=== PATIENT | male | born 1940 | race Caucasian/White ===

== ENCOUNTER 2017-09-06 11:11 | Observation (INO) | payer MEDICARE, BC ==
--- OUTSIDE RECORDS SUMMARY | 2017-09-06 11:20 | XMS REPORT ---
:1940 External Reference #:[id number] Author Organization [facility] Address [address] [place] [address] Phone [phone] Care Team Providers Name Role Phone Jennifer Hanna DR. Care Team Information Principal Java Developer Unavailable Aj Miller MD Primary Care Physician Unavailable Payers Type Date Identification Numbers Payment Provider Subscriber Medicare Primary Policy Number: [id number] Medicare-[facility] [employer] Elpidio Patel [employer] PayID: [id number] [address] [place] [address] [facility] Part [facility] PayID: [id number] [facility] Elpidio Arturo Jorge [address] [address] [place] [address] Problems Date Description Provider Status Onset: 07/24/2017 Essential hypertension Rodrigo Hernandez MD Active Family History Date Family Member(s) Problem(s) Comments General Heart Attack General Pancreatic Cancer Social History Type Date Description Comments Occupation Retired Cigarette Use Former Cigarette Smoker 1 Pack Daily Cigarette Use for 40 years, quit at age 64 Cigars Never Smoked Cigars Pipe Never Smoked A Pipe Smokeless Tobacco Never Used Smokeless Tobacco ETOH Use Currently occasionally consumes alcohol Smoking Patient is a former smoker Allergies, Adverse Reactions, Alerts Date Description Reaction Status Severity Comments 07/24/2017 NKDA active Medications Medication Date Status Form Strength Qnty SIG Indications Ordering Provider Mupirocin 07/24 Active Ointment 2% 22gm apply to efren Alcantar MD twice a day Cardizem CD 00 Active Caps ER 180mg daily Unknown /0000 24HR Xopenex Active Nebulizer 0.63mg/3M as Unknown /0000 L directed Spiriva Handihaler Active Capsules 18mcg 1 cap Unknown /0000 inhaled everyday Lipitor Active Tablets 10mg 1 by mouth Unknown /0000 every day Flecainide Acetate Active Tablets 50mg 1 by mouth Unknown /0000 twice a day Symbicort Active Aerosol 160-4.5mc 2 puffs 2x Unknown /0000 g/Act a day with spacer Lexapro Active Tablets 20mg 1 by mouth Unknown /0000 every day Omeprazole Active Capsules 20mg 1 tab by Unknown /0000 DR mouth 30 min before breakfast and dinner Finasteride Active Tablets 5mg 1 by mouth Unknown /0000 every day Pradaxa Active Capsules 150mg 1 by mouth Unknown /0000 twice a day Hydrocodone-Acetam Active Tablets 5-325mg take as Unknown inophen /0000 directed, as needed Ambien Active Tablets 5mg 1 by mouth Unknown /0000 15 min prior to sleep Triamterene/Hydroc Active Capsules 37.5-25mg Unknown hlorothiazide /0000 Sulfamethoxazole Active Powder as Unknown /0000 directed Vital Signs Date Vital Result Comment 07/24/2017 BP Systolic 190 mmHg BP Diastolic 74 mmHg Heart Rate 72 /min Respiratory Rate 20 /min Weight 221.00 lb Weight in kg's 100.246 Height 66 inches 5'6" Height in cm's 167.6 cm BMI (Body Mass Index) 35.7 kg/m2 Results Description No Information Procedures Description No Information Encounters Type Date Location Provider CPT E/M Dx Office Visit 07/24/2017 10:15a [place] 08/10/07 [place] [address] R04.0 Plan of Care Future Appointment(s):11/03/2017 10:00 am - Rodrigo Hernandez MD at [place] 08/10/800 - Rodrigo Hernandez, MDR04.0 Epistaxis
--- OUTSIDE RECORDS SUMMARY | 2017-09-06 11:21 | XMS REPORT ---
:1940 External Reference #:[id number] Author Organization [facility] Address [address] [address] Phone [phone] Care Team Providers Name Role Phone Aj Miller MD Primary Care Physician Unavailable Payers Type Date Identification Numbers Payment Provider Subscriber Medicare Primary Effective: Policy Number: Medicare Elpidio Patel 2007 [id number] PayID: [id number] [address] [place] [address] Medigap Part B Effective: 2012 Policy Number: ENZO Jocelyn Patel [id number] PayID: [id number] [address] [address] [place] [id number] Medigap Part B Effective: 2010 Policy Number: BS Mandy Patel [id number] Expires: 2012 Group Number: [id number] [address] PayID: [id number] [place] [id number] Problems Date Description Provider Status Onset: 10/21/2011 Atrial fibrillation Matty Stafford M.D. Onset: 10/21/2011 Electrocardiogram abnormal Matty Stafford M.D. Onset: 10/21/2011 Dyspnea Matty Stafford M.D. Onset: 10/21/2011 Hyperlipidemia Matty Stafford M.D. Onset: 10/21/2011 Mitral valve disorder Matty Stafford M.D. 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 Onset: 03/23/2012 Benign essential hypertension Jennifer Hanna Active Jose Alfredo Onset: 03/31/2012 Coronary arteriosclerosis Matty Stafford M.D. Onset: 03/31/2012 Atrial flutter Matty Stafford M.D. Onset: 11/06/2015 Chronic atrial fibrillation Matty Stafford M.D. 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 Family History Date Family Member(s) Problem(s) Comments General non contributory : (age 56 Father due to [place] Years) : (age 73 Mother due to Cancer, Years) Pancreatic Siblings 1 Sister, COPD Social History Type Date Description Comments Marital Status Lives With Occupation Retired Cigarette Use Quit 11 Years Ago ETOH Use consumes 2 beers per week Smoking Patient is a former smoker Recreational Drug Use Denies Drug Use Daily Caffeine Consumes on average 1 cup of regular coffee per 1/2 day Exercise Type/Frequency Exercises regularly Walking General Hx Text Allergies, Adverse Reactions, Alerts Date Description Reaction Status Severity Comments 07/27/2006 NKDA active Medications Medication Date Status Form Strength Qnty SIG Indications Ordering Provider Bevespi 07/27 Active Aerosol 9-4.8mcg/ 2unit 2 puffs Melissa Aerosphere Act s twice Marcela daily MD Osorio CD 07/02 Active Caps ER 120mg 30cap 1 by mouth 24HR s every day Aleisha Hanna M.D. Oxygen 12/11 Active Misc 1unit 2lpm as s directed Amoxicillin 07/16 Active Capsules 500mg 16cap 4 tablets s 1 hour Samir, before M.D. dental work Xopenex 07/27 Active Solution 0.63mg/3 prn Qutayb ML Aleisha Hanna M.D. Lipitor 07/23 Active Tablets 10mg 30tab 1 PO qd Qutayb s Aleisha Hanna M.D. Lexapro Active Tablets 20mg 1 PO qd Unknown Omeprazole Active Capsules DR 20mg 90cap 1 PO qd s Cpap Active qhs Finasteride Active Tablets 5mg 1 tablet Unknown po daily Pradaxa Active Capsules 150mg 60cap po bid s Hydrocodone/Aceta Active Tablets 5-325mg 20tab one or two Unknown min s po every 4 - 6 hours prn pain Xopenex HFA Active Aerosol 45mcg/Act 1unit 2 puffs s qid prn Ambien Active Tablets 5mg 20tab 1 po s tablet at bedtime prn Triamterene Active 25mg 1 tablet Unknown daily Flecainide Active Tablets 50mg 1 and 12 Qutaybeh tablets by S. mouth Jacques twice a , M.D. day Sulfamethoxazole Active once daily Advair Diskus 06/02 Hx Aerosol 500-50mcg inhale one /Dose dose by - mouth 07/13 daily Multivitamins 12/11 Hx Capsules 1 by mouth every day - 06/02 Metrocream 12/11 Hx Cream 0.75% apply to affected - area as 07/13 Valium 09/09 Hx Tablets 5mg 2tabs 1 po 2 Dir hours Samir, - prior to M.D. 05/03 mri december take one more at the time of the mri Tramadol HCL 09/07 Hx Tablets 50mg 40tab 1-2 Dir s tablets Samir, - every 6 M.D. 09/07 hours needed Percocet 06/21 Hx Tablets 5-325mg 60tab take 1-2 Dir s tabs po Samir, - q4-6 hours M.D. 05/03 prn pain /2012 Cardizem CD 05/26 Hx Caps ER 180mg 90cap 1 by mouth 24HR s every day S. [facility] 07/02 , M.D. Flecainide 09/25 Hx Tablets 75mg 180ta 1 po daily Qutaybeh bs . [facility] 09/10 , M.DWillam Celebrex 03/08 Hx Capsules 100mg 360ca 1 po bid ps . [facility] 10/20 , M.D. Finasteride 03/08 Hx Tablets 5mg 90tab qd po tayb s . [facility] 01/28 , M.D. Aspirin 03/08 Hx Tablets 81mg 1 po qd tayb . [facility] 04/18 , M.D. Fluticasone 03/08 Hx Suspension 50mcg/Act 1mon 1 spray tayb Propionate each S. - nostril in [facility] 08/14 am , M.D. Medrol Dosepak 09/21 Hx Tablets 4mg For Resp Infection S. [facility] 03/08 , M.D. Flecainide 06/22 Hx Tablets 50mg 60tab 1 po bid Qutaybeh Acetate s . [facility] 09/25 , M.D. Aspirin 02/17 Hx Tablets 325mg 1 PO qd [facility] Centrum Silver 02/17 Hx Tablets 1 PO qd [facility] , [facility]. Amiodarone HCL 07/15 Hx Tablets 200mg Take One Qutaybeh /2006 And A Half S. - bid Times [facility] 07/15 2 Weeks , M.D. Then One Tab bid For 5 Weeks Amiodarone HCL 07/15 Hx Tablets 200mg 1 po qd Qutaybeh [facility] , M.D. Amiodarone HCL 05/27 Hx Tablets 200mg take one tayb and a half S. - bid times [facility] 07/15 2 weeks , M.D. then one tab bid for 5 weeks Lexapro 05/27 Hx Tablets 90tab 1 PO qd 15 s mg S. - [facility] 05/26 , M.D. Rozerem 05/27 Hx Tablets 8mg Use prn ta Sleep S. - [facility] 02/17 , M.D. Biaxin 05/27 Hx Tablets 500mg 20tab 1 PO bid s prn S. - [facility] 05/26 , M.D. Coumadin 05/13 Hx Tablets 2.5mg 30tab Use as s Directed S. - [facility] 02/17 , M.D. Aspirin 10/29 Hx Tablets 325mg 1 PO qd S. - [facility] 05/05 , M.D. /2006 Tylenol 09/01 Hx Tablets 325mg 100ta 2 Tabs qid bs prn [facility] arnaud Rivers M.D. /2009 Cardizem 09/01 Hx Tablets 180mg 90tab 1 po qd s S. - [facility] 05/26 , M.D. /2011 Xopenex Inhaler 07/27 Hx prh tayb S. - [facility] 05/05 , M.DWillam /2006 Advair Diskus 07/27 Hx Inhaler 250mcg;50 1 puff bid mcg S. - [facility] 09/01 , MariiaDWillam /2006 Cardizem CD 07/27 Hx Capsules 120mg 30cap 1 po qd Qutayb s S. - [facility] 09/01 , M.D. /2006 Coumadin 07/27 Hx Tablets 5mg 30tab ii po 05/06 Qutayb s and 05/07 S. - then one [facility] 02/17 po qd po , M.D. /2007 qd Hydrochlorothiazi 07/23 Hx Tablets 25mg 90tab 1 po qd Qutaybeh de s Willam [facility] 07/27 , Jose Alfredo /2005 Serevent Diskus 07/23 Hx Powder 50mcg bid Qutaybeh Inhalation S. [facility] 07/27 , Jose Alfredo /2005 Spiriva 07/23 Hx Capsules 18mcg qd Qutaybeh Handihaler Willam [facility] 08/30 Jose lAfredo /2017 Albuterol 07/23 Hx Aerosol 90mcg/Dos 2 puffs Qutaybeh Inhalation e qid prn [facility] Jose Alfredo /2005 Enablex 07/23 Hx Tablets 15mg qd Qutayb Will[facility] 07/27 Jose Alfredo /2005 Ecotrin 07/23 Hx Tablets 81mg 1 po qd tayb Aleisha [facility] 09/01 Jose Alfredo /2006 Skelaxin 07/23 Hx Tablets 800mg 1/2 To 1 Tab Q 8 S. - [facility] Jose Alfredo /2011 Ibuprofen 07/23 Hx Tablets 600mg 1 po q8h tayb prn . [facility] Jose Alfredo /2006 Pulmicort Hx Inhaler 180 3Mont 2 puff bid Unknown Flexhaler / h - 06/28 Centrum Silver Hx Tablets daily Unknown Ultra Mens / - 06/02 Vesicare 00 Hx Tablets 10mg 30tab 1 po qd Unknown / s - 10/20 Celebrex Hx Capsules 200mg 1 po bid Unknown / - 03/01 Vesicare 00 Hx Tablets 5mg 1 qhs Unknown / - 03/01 Doxycycline Hx Capsules 100mg 14cap bid po Unknown Hyclate / s - 05/03 Hydrocodone Hx Tablets 5/500mg 40tab 1 tablet Unknown Bitartrate/Acetam / s by mouth inophen - every 6 09/24 hours needed Vitamin C 00 Hx 1 tablet Unknown /0000 po daily - 01/02 Advair Diskus 0000 Hx Aerosol 250-50mcg 1 puff by Unknown /0000 /Dose mouth - twice a Medications Administered in Office Medication Date Status Form Strength Qnty SIG Indications Ordering Provider Depomedrol Administered Injection Dirk Samir, 80MG 013 M.D. Vital Signs Date Vital Result Comment 08/31/2017 Height 66 inches 5'6" Weight 219.00 lb Heart Rate 72 /min BP Systolic Sitting 122 mmHg BP Diastolic Sitting 64 mmHg Respiratory Rate 14 /min O2 % BldC Oximetry 91 % BMI (Body Mass Index) 35.3 kg/m2 07/14/2017 Height 66 inches 5'6" Weight 220.00 lb with shoes Heart Rate 88 /min BP Systolic Sitting 158 mmHg LA reg cuff BP Diastolic Sitting 78 mmHg LA reg cuff BMI (Body Mass Index) 35.5 kg/m2 Ejection Fraction 55% - 60% echo 06/26/17 06/03/2017 Height 66 inches 5'6" Weight 219.12 lb with shoes BMI (Body Mass Index) 35.4 kg/m2 Ejection Fraction 55% - 60% echo 11/19/15 09/10/2016 Height 66 inches 5'6" Weight 223.00 lb w/shoes Heart Rate 74 /min BP Systolic Sitting 152 mmHg lA lg cuff BP Diastolic Sitting 70 mmHg lA lg cuff BMI (Body Mass Index) 36.0 kg/m2 Ejection Fraction 55-60% Echo 11/19/15 01/04/2016 Height 66 inches 5'6" Weight 198.75 lb with shoes Heart Rate 82 /min BP Systolic 128 mmHg LA lrg cuff BP Diastolic 66 mmHg LA lrg cuff O2 % BldC Oximetry 92 % at room air BMI (Body Mass Index) 32.1 kg/m2 Ejection Fraction 55%-60% echo 11/19/15 12/13/2015 Height 66 inches 5'6" Weight 206.12 lb Heart Rate 80 /min BP Systolic Sitting 144 mmHg BP Diastolic Sitting 74 mmHg Respiratory Rate 16 /min O2 % BldC Oximetry 93 % BMI (Body Mass Index) 33.3 kg/m2 11/06/2015 Height 66 inches 5'6" Weight 209.50 lb with shoes Heart Rate 90 /min BP Systolic Sitting 148 mmHg LA, regular cuff BP Diastolic Sitting 78 mmHg LA, regular cuff BMI (Body Mass Index) 33.8 kg/m2 Ejection Fraction 50-55% echo 02/24/14 03/09/2015 Height 66 inches 5'6" Weight 205.00 lb Heart Rate 74 /min BP Systolic Sitting 150 mmHg LA reg cuff BP Diastolic Sitting 84 mmHg LA reg cuff Respiratory Rate 12 /min BMI (Body Mass Index) 33.1 kg/m2 Ejection Fraction 50-55 echo 02/24/14 06/29/2014 Height 66 inches 5'6" Weight 212.75 lb Heart Rate 76 /min BP Systolic Sitting 148 mmHg LA, reg BP Diastolic Sitting 84 mmHg LA, reg BMI (Body Mass Index) 34.3 kg/m2 04/06/2014 Height 66 inches 5'6" Weight 222.25 lb Heart Rate 60 /min BP Systolic Sitting 138 mmHg LA reg cuff BP Diastolic Sitting 72 mmHg LA reg cuff Respiratory Rate 16 /min BMI (Body Mass Index) 35.9 kg/m2 03/16/2014 Height 66 inches 5'6" Weight 221.00 lb Heart Rate 68 /min BP Systolic Sitting 124 mmHg BP Diastolic Sitting 80 mmHg Respiratory Rate 18 /min BMI (Body Mass Index) 35.7 kg/m2 01/26/2014 Height 66 inches 5'6" Weight 222.75 lb with shoes Heart Rate 96 /min BP Systolic Sitting 148 mmHg LA Lg cuff BP Diastolic Sitting 76 mmHg LA Lg cuff Respiratory Rate 16 /min BMI (Body Mass Index) 35.9 kg/m2 05/03/2013 Height 66 inches 5'6" Weight 216.00 lb Heart Rate 80 /min BP Systolic Sitting 144 mmHg BP Diastolic Sitting 82 mmHg Respiratory Rate 24 /min BMI (Body Mass Index) 34.9 kg/m2 03/31/2012 Height 66 inches 5'6" Weight 222.00 lb Heart Rate 72 /min BP Systolic Sitting 152 mmHg BP Diastolic Sitting 70 mmHg Respiratory Rate 20 /min BMI (Body Mass Index) 35.8 kg/m2 03/23/2012 Height 66 inches 5'6" Weight 223.00 lb Heart Rate 76 /min BP Systolic 150 mmHg BP Diastolic 66 mmHg BMI (Body Mass Index) 36.0 kg/m2 03/01/2012 Height 66 inches 5'6" Weight 224.00 lb Heart Rate 80 /min BP Systolic 130 mmHg BP Diastolic 70 mmHg Respiratory Rate 18 /min O2 % BldC Oximetry 89 % BMI (Body Mass Index) 36.2 kg/m2 03/01/2012 Height 66 inches 5'6" 10/21/2011 Height 66 inches 5'6" Weight 228.00 lb Heart Rate 64 /min BP Systolic Sitting 128 mmHg L BP Diastolic Sitting 64 mmHg L BMI (Body Mass Index) 36.8 kg/m2 04/18/2011 Height 66 inches 5'6" Weight 229.00 lb Heart Rate 60 /min BP Systolic 158 mmHg BP Diastolic 82 mmHg BMI (Body Mass Index) 37.0 kg/m2 09/25/2010 Weight 224.00 lb Heart Rate 88 /min BP Systolic Sitting 138 mmHg BP Diastolic Sitting 80 mmHg 09/16/2010 Height 66 inches 5'6" Weight 223.00 lb Heart Rate 61 /min BP Systolic Sitting 160 mmHg BP Diastolic Sitting 78 mmHg BMI (Body Mass Index) 36.0 kg/m2 02/12/2010 Height 66 inches 5'6" Weight 225.00 lb Heart Rate 70 /min BP Systolic Sitting 140 mmHg BP Diastolic Sitting 86 mmHg BMI (Body Mass Index) 36.3 kg/m2 08/14/2009 Height 66 inches 5'6" Weight 231.00 lb Heart Rate 66 /min BP Systolic Sitting 140 mmHg BP Diastolic Sitting 80 mmHg BMI (Body Mass Index) 37.3 kg/m2 03/08/2009 Height 66 inches 5'6" Weight 221.00 lb Heart Rate 69 /min BP Systolic Sitting 140 mmHg L BP Diastolic Sitting 70 mmHg L BMI (Body Mass Index) 35.7 kg/m2 09/21/2008 Weight 222.00 lb Heart Rate 68 /min BP Systolic Sitting 140 mmHg BP Diastolic Sitting 70 mmHg Respiratory Rate 16 /min 06/22/2008 Height 66 inches 5'6" Heart Rate 68 /min BP Systolic Sitting 160 mmHg BP Diastolic Sitting 80 mmHg 05/26/2008 Height 66 inches 5'6" Weight 221.00 lb Heart Rate 70 /min BP Systolic Sitting 140 mmHg BP Diastolic Sitting 80 mmHg O2 % BldC Oximetry 95 % BMI (Body Mass Index) 35.7 kg/m2 02/18/2008 Height 66 inches 5'6" Weight 219.00 lb Heart Rate 65 /min BP Systolic Sitting 130 mmHg BP Diastolic Sitting 74 mmHg Respiratory Rate 16 /min BMI (Body Mass Index) 35.3 kg/m2 02/18/2008 Height 66 inches 5'6" 07/15/2007 Height 66 inches 5'6" Weight 224.00 lb Heart Rate 64 /min BP Systolic Sitting 144 mmHg L BP Diastolic Sitting 70 mmHg L BMI (Body Mass Index) 36.2 kg/m2 05/24/2007 Height 66 inches 5'6" Weight 223.50 lb Heart Rate 77 /min BP Systolic Sitting 120 mmHg BP Diastolic Sitting 80 mmHg BMI (Body Mass Index) 36.1 kg/m2 05/05/2007 Height 66 inches 5'6" Weight 220.00 lb Heart Rate 87 /min BP Systolic Sitting 130 mmHg BP Diastolic Sitting 80 mmHg BMI (Body Mass Index) 35.5 kg/m2 10/28/2006 Height 66 inches 5'6" Weight 214.00 lb Heart Rate 64 /min BP Systolic Sitting 164 mmHg L BP Diastolic Sitting 70 mmHg L BMI (Body Mass Index) 34.5 kg/m2 10/05/2006 Height 66 inches 5'6" Weight 216.00 lb Heart Rate 68 /min Respiratory Rate 18 /min BMI (Body Mass Index) 34.9 kg/m2 09/01/2006 Height 66 inches 5'6" Weight 222.00 lb Heart Rate 69 /min BP Systolic Sitting 140 mmHg BP Diastolic Sitting 80 mmHg Respiratory Rate 18 /min BMI (Body Mass Index) 35.8 kg/m2 07/27/2006 Height 66 inches 5'6" Weight 224.00 lb Heart Rate 79 /min BP Systolic Sitting 150 mmHg L BP Diastolic Sitting 80 mmHg L O2 % BldC Oximetry 96 % BMI (Body Mass Index) 36.2 kg/m2 Results Test Date Test Result H/L Range Note Arterial Blood Gas 01/03/2015 PH Arterial 7.39 7.35-7.45 Pco2 Arterial 38 mmHg 35-45 Po2 Arterial 78 mmHg Low 80-100 O2 Saturation Arterial 97.1 % 95-98 Base Excess Arterial -1.7 -2.0-2.0 1 Hco3 Arterial 23.5 mmol/L 19-31 Basic Metabolic Panel 06/02/2012 Sodium 140 mmol/L 133-145 Potassium 4.5 mmol/L 3.5-5.0 Chloride 106 mmol/L 101-111 Co2 Carbon Dioxide 28.0 mmol/L 22-32 Anion Gap 6.0 mmol/L 2-11 Glucose 96 mg/dL 70-100 Blood Urea Nitrogen 14 mg/dL 6-24 Creatinine 0.80 mg/dL 0.50-1.40 BUN/Creatinine Ratio 17.5 8-20 Calcium 8.6 mg/dL 8.1-9.9 Egfr Non- 95.6 >60 Egfr 122.9 >60 2 CBC Auto Diff 06/02/2012 White Blood Count 7.6 10^3/uL 4.8-10.8 Red Blood Count 3.89 10^6/uL Low 4.0-5.4 Hemoglobin 11.9 g/dL Low 14.0-18.0 Hematocrit 35 % Low 42-52 Mean Corpuscular Volume 90 fL 80-94 Mean Corpuscular Hemoglobin 31 pg 27-31 Mean Corpuscular HGB Conc 34 g/dL 31-36 Red Cell Distribution Width 15 % 10.5-15 Platelet Count 266 10^3/uL 150-450 Mean Platelet Volume 7 um3 Low 7.4-10.4 Abs Neutrophils 4.8 10^3/uL 1.5-7.7 Abs Lymphocytes 1.9 10^3/uL 1.0-4.8 Abs Monocytes 0.6 10^3/uL 0-0.8 Abs Eosinophils 0.2 10^3/uL 0-0.6 Abs Basophils 0 10^3/uL 0-0.2 Abs Nucleated RBC 0.01 10^3/uL Granulocyte % 63.2 % 38-83 Lymphocyte % 25.5 % 25-47 Monocyte % 8.6 % 1-9 Eosinophil % 2.2 % 0-6 Basophil % 0.5 % 0-2 Nucleated Red Blood Cells % 0.1 Laboratory test finding 06/02/2012 Inr 1.01 0.82-1.17 3 Activated Partial Thrombo Time 35.4 SEC 25.15-38.53 4 Type & Screen 06/02/2012 Patient Blood Type B Positive Antibody Screen NEGATIVE Urinalysis 06/02/2012 Urine Color Yellow Urine Appearance Clear Urine Specific Sinclair 1.022 1.010-1.030 Urine Esterase Negative Negative Urine Nitrate Negative Negative Urine Urobilinogen Negative Negative Urine Protein Negative Negative Urine pH 7.0 5-9 Urine Blood Negative Negative Urine Ketones Negative Negative Urine Bilirubin Negative Negative Urine Glucose Negative Negative Cath Panel 03/24/2012 PTT (Aptt) 27.9 SEC 25.1-38.5 CBC With Manual Diff 03/24/2012 White Blood Count 7.6 CUMM 4.8-10.8 Red Cell Count 4.06 CUMM Low 4.6-6.2 Hemoglobin 12.4 g/dL Low 14.0-18.0 Hematocrit 36 % Low 42-52 Mean Corpuscular Volume 90 um3 80-94 Mean Corpuscular Hemoglob 31 pg 27-31 Mean Corpuscular HGB Cone 34 g/dL 32-36 Redcell Distribution WDTH 15 % 10.5-15 Platelet Count 247 CUMM 150-450 Mean Platelet Volume 6.8 um3 Low 7.4-10.4 Absolute Neutrophil Count 4.5 1.5-7.7 Polysegmented Neutrophil 54 % 38-83 Band Neutrophil 1 % 0-8 Lymphocyte 35 % 25-47 Monocyte 7 % 0-13 Eosinophil 2 % 0-6 Basophil 1 % 0-2 RBC Morphology NORMAL Basic Metabolic Panel 03/24/2012 Sodium 138 mmol/L 135-145 Potassium 4.2 mmol/L 3.5-5.0 Chloride 106 mmol/L 101-111 Co2 (Carbon Dioxide) 27.0 mmol/L 22-32 Anion Gap 5.0 mmol/L 2-11 5 Glucose 106 mg/dL High 70-100 BUN 15 mg/dL 6-24 Creatinine 0.8 mg/dL 0.50-1.40 One Over Creatinine 1.25 BUN/Creatinine Ratio 18.8 8-20 Calcium 8.8 mg/dL 8.1-9.9 eGFR Non- 95.6 > 60 eGFR 122.9 > 60 6 Protime 03/24/2012 Inr 0.90 0.88-1.13 7 Protime 10.7 SEC 10.3-13.5 8 Laboratory test finding 08/14/2008 TSH 4.05 MIU/ML 0.34-5.60 T3 Total 0.85 NG/ML 0.5-1.7 Thyroxine Free 0.87 NG/ML 0.61-1.24 9 Liver Function Panel 08/14/2008 Total Protein 6.3 GM/DL 6.2-8.1 Albumin 3.9 GM/DL 3.2-5.2 Globulin 2.4 GM/DL 2-4 Albumin/Globulin Ratio 1.6 1-3 Bilirubin Total 0.7 mg/dL 0.4-1.5 Bilirubin Direct 0.1 mg/dL 0.1-0.5 Indirect Bilirubin 0.6 mg/dL 0.1-0.75 Alkaline Phosphatase 94 U/L 39-117 Alt (SGPT) 17 U/L 17-63 Ast (Sgot) 17 U/L 12-42 Laboratory test finding 10/20/2007 TSH 3.34 MIU/ML 0.34-5.60 T3 Total 0.85 NG/ML 0.5-1.7 Troponin-I (TnI) 0.02 NG/ML 0-0.06 10 Liver Function Panel 10/20/2007 Albumin/Globulin Ratio 1.5 1-3 Albumin 4.0 GM/DL 3.2-5.2 Alkaline Phosphatase 79 U/L 39-117 Alt (SGPT) 18 U/L 17-63 Ast (Sgot) 16 U/L 12-42 Bilirubin Direct < 0.1 mg/dL Low 0.1-0.5 Globulin 2.7 GM/DL 2-4 Bilirubin Total 0.8 mg/dL 0.4-1.5 Total Protein 6.7 GM/DL 6.2-8.1 Laboratory test finding 05/25/2007 T3 Total 1.10 NG/ML 0.5-1.7 Thyroxine 8.2 g/dL 5-12 TSH 3.27 MIU/ML 0.34-5.60 Liver Function Panel 05/25/2007 Albumin/Globulin Ratio 1.5 1-3 Albumin 4.1 GM/DL 3.2-5.2 Alkaline Phosphatase 87 U/L 39-117 Alt (SGPT) 18 U/L 17-63 Ast (Sgot) 17 U/L 12-42 Bilirubin Direct 0.1 mg/dL 0.1-0.5 Globulin 2.7 GM/DL 2-4 Indirect Bilirubin 0.6 mg/dL 0.1-0.75 Bilirubin Total 0.7 mg/dL 0.4-1.5 Total Protein 6.8 GM/DL 6.2-8.1 Protime 05/25/2007 Inr 2.38 11 Protime 18.5 High 10.9-13.1 Protime 07/31/2006 Inr 1.00 12, 13 Protime 12.0 10.9-13.1 12 1 Reference ranges based on room air. 2 Because ethnic data is not always readily available, this report includes an eGFR for both -Americans and non- Americans. The National Kidney Disease Education Program (NKDEP) does not endorse the use of the MDRD equation for patients that are not between the ages of 18 and 70, are , have extremes of body size, muscle mass, or nutritional status, or are non- or non-. According to the National Kidney Foundation, irrespective of diagnosis, the stage of the disease is based on the level of kidney function: Stage Description GFR(mL/min/1.73 m(2)) 1 Kidney damage with normal or decreased GFR 90 2 Kidney damage with mild decrease in GFR 60-89 3 Moderate decrease in GFR 30-59 4 Severe decrease in GFR 15-29 5 Kidney failure <15 (or dialysis) 3 Effective May 10, 2012, in conjunction with the upgrade of the hospital information system, [facility] will release the International Normalized Ratio (INR) only. Patient reports will no longer contain prothrombin time (PT) results in seconds. This allows for consistency in patient evaluation and treatment. The INR was adopted by the World Health Organization (WHO) in 1983 as a standardized system of reporting PT. The Centers for Disease Control (CDC) states that reporting of PT results in INR only is the preferred method. Recommended INR for Patients on Oral Anticoagulants Prophylaxis 2.0 - 3.0 Treatment of thrombosis 2.0 - 3.0 Prevention of embolism 2.0 - 3.0 Prevention of embolism from prosthetic heart valves 2.5 - 3.5 4 AA 06/08 5 Anion gap measurement may be of limited value in the presence of any alkalosis, especially in a combined acid base disorder. . 6 Because ethnic data is not always readily available, this report includes an eGFR for both -Americans and non- Americans. The National Kidney Disease Education Program (NKDEP) does not endorse the use of the MDRD equation for patients that are not between the ages of 18 and 70, are , have extremes of body size, muscle mass, or nutritional status, or are non- or non-. According to the National Kidney Foundation, irrespective of diagnosis, the stage of the disease is based on the level of kidney function: Stage Description GFR(mL/min/1.73 m(2)) 1 Kidney damage with normal or decreased GFR 90 2 Kidney damage with mild decrease in GFR 60-89 3 Moderate decrease in GFR 30-59 4 Severe decrease in GFR 15-29 5 Kidney failure <15 (or dialysis) 7 Recommended INR for Patients on Oral Anticoagulants Prophylaxis 2.0 - 3.0 Treatment of thrombosis 2.0 - 3.0 Prevention of embolism 2.0 - 3.0 Prevention of embolism from prosthetic heart valves 2.5 - 3.5 8 DIAGNOSIS,TREATMENT,AND THERAPY MUST BE BASED ON THE INR VALUE ALONE. 9 PLEASE NOTE NEW REFERENCE RANGES. 10 New Reference Range and Interpretation effective 05/13/02 TnI (ng/ml) INTERPRETATION <0.06 ng/ml NOT SUPPORTIVE OF DIAGNOSIS OF CA 0.06 - 0.50 ng/ml INDETERMINATE: SUGGEST SERIAL STUDIES IF CLINICALLY INDICATED. > 0.5 ng/ml CONSISTENT WITH DIAGNOSIS OF CA . 11 JOON VALUE=2.00 ( OF 05/26/06) Recommended INR for Patients on Oral Anticoagulants Prophylaxis 2.0 - 3.0 Treatment of thrombosis 2.0 - 3.0 Prevention of embolism 2.0 - 3.0 Prevention of embolism from prosthetic heart valves 2.5 - 3.[address] HATCH AT [phone] 13 JOON VALUE=2.00 ( OF 05/26/06) Recommended INR for Patients on Oral Anticoagulants Prophylaxis 2.0 - 3.0 Treatment of thrombosis 2.0 - 3.0 Prevention of embolism 2.0 - 3.0 Prevention of embolism from prosthetic heart valves 2.5 - 3.5 Procedures Date CPT Code Description Status 08/05/2017 84954 Diffusing Capacity Completed 08/05/2017 39159 Plethysmography Determination Lung Volumes & Per Completed Airway Resist 08/05/2017 76381 Pulmonary Stress Test Simple Completed 08/05/2017 42116 Pulmonary Function><Bronchodil Completed 07/02/2017 16941 Holter Monitor Review (24 hr)dr courtney & mago Completed only 06/30/2017 69119 ECG Monitor/Recording W/Visual Superimposition Scanning Completed 06/30/2017 42596 EKG Tracing & Interpretation Completed 06/24/2017 55392 ECHO Transthoracic, Real-Time 2D With Doppler And Color Completed Flow 06/24/2017 28099 ECHO Transthoracic, Real-Time 2D With Doppler And Color Completed Flow 06/03/2017 67740 EKG Tracing & Interpretation Completed 09/10/2016 59004 EKG Tracing & Interpretation Completed 11/19/2015 [id number] ECHO Transthoracic, Real-Time 2D With Doppler And Color Completed Flow 11/11/2015 32269 Holter Monitor Review (24 hr)dr courtney & interp Completed only 11/06/2015 15884 EKG Tracing & Interpretation Completed 03/09/2015 06761 EKG Tracing & Interpretation Completed 01/08/2015 51656 Laparoscopy Cholecystectomy With Cholangiography Completed 01/04/2015 29954 EKG, Interpretation Only Completed 04/06/2014 92619 EKG Tracing & Interpretation Completed 03/22/2014 88869 Holter Monitoring 24 HR New Completed 03/21/2014 01508 Holter Monitoring 24 HR New Completed 02/24/2014 26313 ECHO Transthoracic, Real-Time 2D With Doppler And Color Completed Flow 01/26/2014 12982 EKG Tracing & Interpretation Completed 05/03/2013 51748 EKG Tracing & Interpretation Completed 11/18/2012 78135 Inject/Drain Joint/Bursa Major Completed 11/18/2012 79969 Rad Shoulder Comp, Min. 2 Views Completed 09/07/2012 56078 Rad Exam; Hip Unilat Completed 09/07/2012 86133 Rad Exam; Pelvis Completed 07/19/2012 70637 Rad Exam; Hip Unilat Completed 07/19/2012 96299 Rad Exam; Pelvis Completed 06/08/2012 35727 THR Total Hip Replacement Completed 06/08/2012 93682 THR Total Hip Replacement Completed 05/03/2012 64372 Rad Exam; Hip Unilat Completed 05/03/2012 86165 Rad Exam; Pelvis Completed 04/20/2012 12149 ECHO Transthoracic, Real-Time 2D With Doppler And Color Completed Flow 03/26/2012 13239 Left Health Catheterization W/Inj For Left Completed Ventriculography,S&I 03/26/2012 70316 Cath PLMT&NJX L Ventriculog Img S&I Completed 03/26/2012 60935 Left Heart Cath. Incl S/I Coronaries, Angio S/I V Gram Completed If Done 03/23/2012 07230 EKG Tracing & Interpretation Completed 03/16/2012 31555 Treadmill Interp/Report Only Completed 03/16/2012 46170 Stress Test Supervsn W/Out I/R Completed 03/01/2012 12667 EKG Tracing & Interpretation Completed 10/21/2011 52835 EKG Tracing & Interpretation Completed 04/18/2011 63162 EKG Tracing & Interpretation Completed 10/10/2010 48886 Holter Monitor Completed 10/10/2010 84817 Holter Monitoring 24 HR New Completed 09/25/2010 64637 EKG Tracing & Interpretation Completed 09/16/2010 39927 EKG Tracing & Interpretation Completed 08/23/2010 94914 ECHO Transthoracic, Real-Time 2D With Doppler And Color Completed Flow 02/12/2010 13362 EKG Tracing & Interpretation Completed 08/14/2009 96461 ECHO Transthoracic, Real-Time 2D With Doppler And Color Completed Flow 08/14/2009 98648 EKG Tracing & Interpretation Completed 03/08/2009 52300 EKG Tracing & Interpretation Completed 09/21/2008 66657 EKG Tracing & Interpretation Completed 08/29/2008 71807 Holter Monitor Interpretation Completed 06/22/2008 38775 EKG Tracing & Interpretation Completed 06/16/2008 66339 Treadmill Interp/Report Only Completed 06/16/2008 85129 Treadmill Interp/Report Only Completed 06/16/2008 41894 Stress Test Supervsn W/Out I/R Completed 06/01/2008 66932 Echocardiogram Completed 06/01/2008 14795 Echocardiogram Completed 06/01/2008 73313 Pulse Doppler & Continuous Wave Completed 06/01/2008 17576 Pulse Doppler & Continuous Wave Completed 06/01/2008 76632 Pulse Doppler & Continuous Wave Completed 06/01/2008 14356 Color Doppler Completed 06/01/2008 38638 Color Doppler Completed 05/26/2008 12184 EKG Tracing & Interpretation Completed 05/26/2008 02737 EKG Tracing & Interpretation Completed 02/18/2008 04118 EKG Tracing & Interpretation Completed 08/27/2007 38995 Holter Monitor Completed 08/27/2007 75911 Holter Monitor Completed 08/27/2007 96625 Holter Monitor Completed 07/15/2007 32087 EKG Tracing & Interpretation Completed 05/24/2007 01217 EKG Tracing & Interpretation Completed 05/24/2007 08193 EKG Tracing & Interpretation Completed 05/18/2007 34880 Color Flow Doppler/Interp & Reprt Completed 05/18/2007 94456 Pulse Wave/Continuous-Interp.RPT Completed 05/18/2007 64330 Pulse Wave/Continuous-Interp.RPT Completed 05/18/2007 61011 Echocardiography, Transesophageal, Real Time W/Image 2D Completed W/W/O M-M 05/18/2007 95026 EKG, Interpretation Only Completed 05/18/2007 24436 EKG, Interpretation Only Completed 05/18/2007 98454 Cardioversion Completed 05/18/2007 32941 Cardioversion Completed 05/13/2007 92450 Holter Monitor Interpretation Completed 05/05/2007 47990 EKG Tracing & Interpretation Completed 05/05/2007 95004 EKG Tracing & Interpretation Completed 10/28/2006 83805 EKG Tracing & Interpretation Completed 09/01/2006 20317 EKG Tracing & Interpretation Completed 09/01/2006 71196 EKG Tracing & Interpretation Completed 08/07/2006 26497 Treadmill Interp/Report Only Completed 08/07/2006 82356 Treadmill Interp/Report Only Completed 08/07/2006 38314 Stress Test Supervsn W/Out I/R Completed 07/29/2006 33718 Color Doppler Completed 07/29/2006 88365 Pulse Doppler & Continuous Wave Completed 07/29/2006 68335 Pulse Doppler & Continuous Wave Completed 07/29/2006 33946 Echocardiogram Completed 07/27/2006 64896 EKG Tracing & Interpretation Completed Encounters Type Date Location Provider CPT E/M Dx Office Visit 07/20/2017 [facility] [place] [address] J44.9 1:30p [facility] G47.33 E66.09 R09.02 Office Visit 07/14/2017 4:00p [facility] Jennifer Hanna 02293 I48.3 M.DWillam J44.9 I10 E78.4 Office Visit 06/03/2017 1:40p [facility] Jennifer Hanna 23878 J44.9 M.DWillam I48.91 I10 E78.4 R94.31 R06.02 Office Visit 09/10/2016 4:20p [facility] Jennifer Pena, 42678 J44.9 M.D. I48.91 I10 E78.4 R94.31 Office Visit 01/04/2016 8:20a [facility] Becky, 36377 J44.9 M.D. I48.91 I48.2 I10 E78.4 Office Visit 12/13/2015 10:15a [facility] [place] [address] J44.9 [facility] G47.33 E66.09 Z12.2 Office Visit 11/06/2015 10:00a [facility] S. Becky, 98304 I48.2 M.D. I10 E78.4 R94.31 R06.02 Office Visit 03/09/2015 8:20a [facility] S. Jacques, 95805 427.31 M.D. 401.9 272.4 397.0 Office Visit 01/12/2015 12:22p [facility], Pato Bauman, 01392 427.31 Hospitalists M.DWillam 575.10 401.9 Office Visit 01/11/2015 12:21p [facility], Pato Bauman, 47702 427.31 Hospitalists M.D. 575.10 574.20 401.9 Office Visit 01/10/2015 12:20p [facility], Pato Bauman, 67326 427.31 Hospitalists M.D. 401.9 Office Visit 01/09/2015 12:20p [facility], Yolette Adame, 82672 575.10 Hospitalists M.D. 574.20 427.31 401.9 Office Visit 01/08/2015 12:19p [facility], Yolette Adame, 27010 577.0 Hospitalists M.D. 574.20 427.31 401.9 Office Visit 01/07/2015 12:19p [facility], Yolette Adame, 62088 577.0 Hospitalists M.D. 574.20 427.31 401.9 Office Visit 01/06/2015 12:19p [facility], Yolette Adame, 99609 577.0 Hospitalists M.D. 574.20 427.31 401.9 Office Visit 01/05/2015 12:18p [facility], Yolette Adame, 19843 577.0 Hospitalists M.D. 574.20 427.31 401.9 Office Visit 01/04/2015 12:18p [facility], Yolette Adame, 92610 577.0 Hospitalists M.D. 574.20 272.4 401.9 Office Visit 01/03/2015 12:14[place] [facility] [place], [address] 577.0 Assoc, Hospitalists M.D. 574.20 272.4 401.9 Office Visit 06/29/2014 10:00a [facility] Jennifer Hanna, 15579 427.31 M.D. 401.9 397.0 414.01 272.4 Office Visit 04/06/2014 9:00a [facility] BRIJESH Carrasco 45625POE 427.31 786.05 401.9 397.0 493.20 Office Visit 03/16/2014 11:30a [facility] BRIJESH Carrasco 11671 786.05 427.31 401.9 397.0 Office Visit 01/26/2014 11:00a [facility] Jennifer Hanna, 41991 414.01 M.D. 401.1 786.05 272.4 794.31 427.31 Office Visit 05/03/2013 10:00a [facility] Jennifer SWillam Hanna, 52506 414.01 M.D. 401.1 786.05 272.4 794.31 Office Visit 11/18/2012 2:00p [facility] Dawson M.D. 53631 716.91 C.M.A. 726.19 Office Visit 11/01/2012 3:15p [facility] Dawson M.D. 89546 722.93 C.M.A. Office Visit 09/07/2012 2:30p [facility] QUIN Espinoza 05692 719.45 C.M.A. Office Visit 05/03/2012 2:45p [facility] Dawson M.D. 74261 716.95 C.M.A. Office Visit 03/31/2012 2:40p [facility] Qutaybeh S. 49742 414.01 Jose Alfredo Hanna 401.1 427.32 786.05 272.4 Office Visit 03/26/2012 7:51a [facility] Qutaybeh S. Maghaydah, 05015 794.31 M.D. 414.01 401.1 427.31 427.32 786.05 Office Visit 03/23/2012 4:00p [facility] Qutaybeh S. Maghaydah, 22192 786.05 M.D. 401.1 424.0 492.8 Office Visit 03/16/2012 9:30a [facility] Qutaybeh S. Maghaydah, 03057 794.31 M.D. 786.05 401.1 v72.81 Office Visit 03/01/2012 3:30p [facility] Qutaybeh S. Maghaydah, 27446 427.31 M.D. 794.31 786.05 272.4 424.0 Office Visit 10/21/2011 3:30p [facility] Qutaybeh S. Maghaydah, 57115 427.31 M.D. 794.31 786.05 272.4 424.0 397.0 492.8 Office Visit 04/18/2011 2:20p [facility] Qutaybeh S. Maghaydah, 06962 401.9 M.D. 427.31 794.31 786.05 272.4 424.0 397.0 Office Visit 09/25/2010 10:00a [facility] Qutaybeh S. Maghaydah, 03811 424.0 M.D. 401.1 427.31 272.4 Office Visit 09/16/2010 3:00p [facility] Qutaybeh S. Maghaydah, 36031 424.0 M.D. 401.1 272.4 Office Visit 02/12/2010 3:00p [facility] Qutaybeh S. Maghaydah, 02971 424.0 M.D. 401.1 427.31 272.4 786.05 424.2 Office Visit 08/14/2009 3:20p [facility] Qutaybeh S. Maghaydah, 96095 424.0 M.D. 401.1 427.31 272.4 Office Visit 03/08/2009 3:40p [facility] Qutaybeh S. Maghaydah, 98720 424.0 M.D. 401.1 427.31 272.4 Office Visit 09/21/2008 3:40p [facility] Qutaybeh S. Maghaydah, 86303 427.31 M.D. 786.05 424.0 401.1 272.4 424.2 Office Visit 06/22/2008 8:20a [facility] Qutaybeh S. Maghaydah, 26196 786.05 M.D. 427.31 424.0 401.1 272.4 794.31 424.2 Office Visit 05/26/2008 11:10a [facility] Qutaybeh S. Maghaydah, 95332 427.31 M.D. 272.4 427.69 401.1 Office Visit 02/18/2008 2:20p [facility] Qutaybeh S. Maghaydah, 42959 427.31 M.D. 272.4 424.0 401.1 Office Visit 11/02/2007 3:00p [facility] Sotero Moses, 17681 846.0 Of [facility] Education Professional M.D. Office Visit 07/15/2007 3:20p [facility] Qutaybeh S. 47455 427.31 Jose Alfredo Hanna 272.4 424.0 401.0 Office Visit 05/24/2007 2:10p [facility] Qutaybeh S. Maghaydah, 88276 427.31 M.D. 401.1 794.31 272.4 424.0 424.2 491.0 Office Visit 05/18/2007 9:00a [facility] Qutaybeh S. Maghaydah, 99442 427.31 M.D. 401.1 794.31 272.4 Office Visit 05/05/2007 3:20p [facility] Qutaybeh S. Maghaydah, 62035 427.31 M.D. 424.0 272.4 401.1 Office Visit 10/28/2006 4:00p [facility] Andrzejtayb S. Becky, 13199 401.0 M.D. 427.31 424.0 424.2 Office Visit 10/05/2006 3:00p [facility] Qutayb S. Jacques, 47008 401.1 M.D. 427.31 491.0 Office Visit 09/01/2006 3:00p [facility] Qutayb S. Becky, 82016 401.0 M.D. 427.31 424.2 416.8 Office Visit 07/27/2006 2:20p [facility] Andrzejtayb S. Jacques, 09046 427.32 M.D. 401.0 272.4 491.0 Plan of Care Future Appointment(s):03/01/2018 10:30 am - Melissa Medrano MD at [facility]08/31/2017 - Melissa Medrano MDJ44.9 Chronic obstructive pulmonary disease, unspecifiedFollow up:6 ersvjvK47.33 Obstructive sleep apnea (adult) (pediatric)E66.09 Other obesity due to excess omfpzsedS66.02 Hypoxemia
[2017-09-06] MEDS ORDERED: methylPREDNISolone 125 MG* 2 ML VIAL IV ONE (11:28)
[2017-09-06] MEDS ORDERED: Albuterol/Ipratropium NEB.SOL* Albuterol 2.5 MG/Ipratropium 0.5 MG 3 ML ONE (11:32)
[2017-09-06] MEDS: Albuterol/Ipratropium NEB.SOL* Albuterol 2.5 MG/Ipratropium 0.5 MG 3 ML INH SCH ×3 (11:35→12:56)
[2017-09-06 11:43] LABS: ABS Basophils 0.1 10^3/ul (0-0.2); ABS Eosinophils 0.5 10^3/ul (0-0.6); ABS Lymphocytes 1.7 10^3/ul (1.0-4.8); ABS Monocytes 0.6 10^3/ul (0-0.8); ABS Neutrophils 5.4 10^3/ul (1.5-7.7); ABS Nucleated RBC 0 10^3/ul; Eosinophil % 5.5 % (0-6); Hematocrit 38 % (42-52); Hemoglobin 12.7 g/dl (14.0-18.0); Mean Corpuscular HGB Conc 34 g/dl (31-36); Mean Corpuscular Hemoglobin 30 pg (27-31); Mean Corpuscular Volume 89 fL (80-94); Mean Platelet Volume 6 um3 (7.4-10.4); Nucleated Red Blood Cells % 0; Platelet Count 238 10^3/ul (150-450); Red Blood Count 4.28 10^6/ul (4.0-5.4); Red Cell Distribution Width 14 % (10.5-15); White Blood Count 8.3 10^3/ul (3.5-10.8)
[2017-09-06 11:54] LABS: Urine Appearance Cloudy; Urine Blood Negative (Negative); Urine Color Yellow; Urine Ketones Negative (Negative); Urine Protein 1+(30 mg/dL) (Negative); Urine Specific Gravity 1.027 (1.010-1.030); Urine Urobilinogen Negative (Negative)
[2017-09-06 12:02] LABS: INR 0.94 (0.77-1.02)
[2017-09-06 12:15] LABS: EGFR Non-African American 75.5 (>60)
--- NOTE | 2017-09-06 12:46 | RAD ---
INDICATION: Short of breath COMPARISON: July 20, 2007 TECHNIQUE: An AP portable view obtained at 11.7 hours is submitted. FINDINGS: Bones/Soft Tissues: There are no acute bony findings. Cardiomediastinal: The cardiac silhouette is mildly enlarged. The interstitium is prominent. There is likely mild interstitial congestion. Lungs: There is no focal consolidation. Pleura: There are no pleural effusions. Other: None IMPRESSION: SUSPECT MILD INTERSTITIAL CONGESTION
[2017-09-06] MEDS ORDERED: Iohexol 350* (CONTRAST) 500 ML MDV IV ONE (13:09)
--- NOTE | 2017-09-06 13:51 | RAD ---
INDICATION: Chest pain. Short of breath. Evaluate for pulmonary embolus. COMPARISON: Chest x-ray same date TECHNIQUE: Axial source images were obtained from the thoracic inlet to the hemidiaphragms following administration of [address] angiographic technique was utilized. Coronal and sagittal reconstructed images were acquired. CHEST FINDINGS: Neck/thyroid: The visualized neck to include the thyroid appear normal. Chest wall: There are no acute abnormalities of the bony thorax or chest wall. There is no supraclavicular, infraclavicular, or axillary lymphadenopathy. Lungs : There are 2 right upper lobe nodules each measuring up to roughly 1 cm identified on axial reference images 29/08 and 27/12/1964. There is a 5 mm nodule in the right lower lobe adjacent to the fissure there are no other definitive pulmonary parenchymal masses. There is linear change right upper lobe most consistent with atelectasis. There are underlying emphysematous changes. There are no endobronchial lesions. Cardiomediastinal structures: There is no CT evidence of acute pulmonary embolic disease. The heart is normal in size. There is no pericardial effusion. There is no evidence of aortic aneurysm or dissection. There there is a right hilar, paratracheal, and subcarinal lymphadenopathy with individual necrotic appearing lymph nodes measuring up to 2 cm the esophagus appears normal. Pleura : There are no pleural-based masses or effusions. Other: There is a moderate-sized hiatal hernia. IMPRESSION: 1. Multiple centimeter and smaller right upper lobe nodules. These are worrisome for a primary are metastatic malignancy. 2. Right hilar, paratracheal, and subcarinal lymphadenopathy. This is concerning for metastatic lymphadenopathy. 3. Hiatal hernia
[2017-09-06] MEDS ORDERED: HYDROcodone/ACETAMIN 5-325 MG* 1 TAB PO PRN (14:22)
[2017-09-06] MEDS ORDERED: Albuterol/Ipratropium NEB.SOL* Albuterol 2.5 MG/Ipratropium 0.5 MG 3 ML INH PRN (14:26)
--- NOTE | 2017-09-06 20:35 | HP ---
ADDENDUM NOW INCLUDED ON THIS REPORT CC: Dr. Miller; Dr. Medrano * HOSPITAL MEDICINE HISTORY AND PHYSICAL: DATE OF ADMISSION: 09/06/17 PRIMARY CARE PHYSICIAN: Dr. Miller. ATTENDING PHYSICIAN: Ashvin Colon MD * (dictation provided by Lora Valera NP). CHIEF COMPLAINT: Shortness of breath. HISTORY OF PRESENT ILLNESS: Mr. Patel is a 77-year-old male with a past medical history of COPD on 2 L nasal cannula as needed at home as well as atrial fibrillation and hypertension, who presents to the hospital today with concern for shortness of breath. Mr. Patel states that he was in his normal state of health yesterday. He has a chronic nonproductive cough which was unchanged. This morning at 5 a.m., he was getting up to go to the bathroom when he became suddenly extremely short of breath. He states that he could hardly move because he could not catch his breath. He states this lasted about 30 minutes. He was doing well again until about 10 a.m. when again while walking, he had a sudden onset of severe shortness of breath. He ultimately called EMS, was brought to the emergency room by which time he had improved somewhat. The patient was given treatment in the emergency room with DuoNebs and methylprednisolone. With this, he was doing better but when he again attempted to ambulate, he became very dyspneic. He is currently on 3 L nasal cannula satting greater than 90%. He denies any fevers or chills. He has had no chest pain. He has had no nausea, vomiting, diarrhea or abdominal pain. In the emergency room, Mr. Patel had a chest x-ray which showed concern for possible mild vascular congestion. He had a chest, thorax CTA to rule out pulmonary embolism, which showed no embolism, but did show concern for the following: "Multiple centimeter and smaller right upper lobe nodules. These are worrisome for primary metastatic malignancy; right hilar, paratracheal and subcarinal lymphadenopathy. This is concerning for metastatic lymphadenopathy. " His labs were unremarkable. His vital signs were stable again on 3 L nasal cannula. PAST MEDICAL HISTORY: 1. AFib. 2. Hypertension. 3. Hyperlipidemia. 4. COPD, on 2 L nasal cannula p.r.n. 5. GERD. 6. BPH. MEDICATIONS: 1. Diltiazem CD 120 mg p.o. q.a.m. 2. Bactrim 1 tab p.o. daily for UTI prophylaxis. 3. Atorvastatin 10 mg p.o. q.a.m. 4. Escitalopram 20 mg p.o. q.a.m. 5. Dabigatran 150 mg p.o. b.i.d. 6. Hydrocodone with acetaminophen 5/500 two tabs p.o. q.6 hours p.r.n. 7. Metronidazole 0.75% topically at bedtime p.r.n. 8. Xopenex 2 puffs inhaled q.4 hours p.r.n. 9. Atorvastatin 10 mg p.o. daily. 10. Dabigatran 150 mg p.o. b.i.d. 11. Zolpidem 10 mg p.o. at bedtime. 12. Omeprazole 20 mg p.o. at bedtime. 13. Flecainide 75 mg p.o. b.i.d. 14. Finasteride 5 mg p.o. q.a.m. 15. Bevespi 9/4.8 mcg 2 puffs inhaled b.i.d. ALLERGIES: No known drug allergies. FAMILY HISTORY: The patient reports his mother in her 70s related to pancreatic cancer. Father in his 50s related to coronary artery disease. SOCIAL HISTORY: The patient is a former smoker, quit about 15 years ago, but has over 40 pack a year history of smoking. No report of significant alcohol or any drug use. The patient lives with his , who is his healthcare proxy. REVIEW OF SYSTEMS: A 14-point review of systems was completed with Mr. Patel and all those not mentioned above were negative. PHYSICAL EXAMINATION GENERAL: Mr. Patel is sitting up in the bed. He is in no acute distress. VITAL SIGNS: Temperature 98.1, pulse rate 83, respiratory rate 22, O2 saturation 94% on room air, blood pressure 142/69. LUNGS: Diminished bilaterally with very poor air movement. HEART: S1, S2. No murmur, rub, or gallop and regular. ABDOMEN: Soft and nontender with bowel sounds positive x4. EXTREMITIES: No cyanosis or edema. NEURO: He is alert, he is oriented x3. He moves all extremities equally. There is no facial asymmetry or focal weakness. Extraocular movements are intact. SKIN: Intact. DIAGNOSTIC STUDIES/LAB DATA: WBC 8.3, hemoglobin 12.7, hematocrit 38, platelet count 238,000. INR 0.94. D-dimer less than 200. Blood gas shows a pH of 7.39, pCO2 of 46, pO2 of 97, bicarbonate 26.7. Sodium 137, potassium 3.5 , chloride 101, serum bicarbonate 29, BUN 21, creatinine 0.97, glucose 129, lactic acid 1.2. Troponin 0.01. BNP 122. CRP 4.84. Chest x-ray shows no acute intrathoracic process. Dr. Culp from Radiology suspects a mild interstitial congestion. Chest thorax CTA again is read as follows: "Multiple centimeter and smaller right upper lobe nodules. These are worrisome for primary metastatic malignancy. Right hilar, paratracheal and subcarinal lymphadenopathy. This was concerning for metastatic lymphadenopathy, hiatal hernia." ASSESSMENT/PLAN: Mr. Patel is a 77-year-old male with a past medical history of chronic obstructive pulmonary disease, hypertension, hyperlipidemia, on 2 L nasal cannula at home p.r.n., who presents to the hospital today with concern for acute onset of shortness of breath. Our plans are for observation in the hospital for the followin. Chronic obstructive pulmonary disease exacerbation. I suspect the patient has a chronic obstructive pulmonary disease exacerbation. He shows no evidence of pneumonia on the chest x-ray. He has no leukocytosis or fever. He has no evidence of congestive heart failure. He has no pulmonary embolism. The patient does have newly diagnosed pulmonary nodules, but I do not think based on the size or location that these would be likely contributing to his shortness of breath. Plan to treat for chronic obstructive pulmonary disease exacerbation with prednisone 60 mg p.o. daily as well as doxycycline, DuoNebs, and oxygen. If the patient does not improve as expected, would consult Pulmonology for their assistance and questions regarding need for more urgent workup of the pulmonary nodules. 2. Hypertension. Continue diltiazem. 3. Atrial fibrillation. Continue flecainide, diltiazem, dabigatran. 4. Hyperlipidemia. Continue atorvastatin. 5. Depression. Continue escitalopram. 6. Gastroesophageal reflux disease. Continue omeprazole. 7. Insomnia. Continue Ambien. 8. DVT prophylaxis with dabigatran. 9. Code status is full code. TIME SPENT: Approximately 60 minutes was spent in admission of this patient, more than half of the time was spent with the patient at the bedside reviewing the events leading up to this hospitalization, performing the physical examination, and reviewing my plan of care. LORA VALERA NP [id number]/[facility]PS #: [id number]/CPS #: [id number] JOSE R
[2017-09-06] MEDS: DOXYcycline CAP(*) 100 MG PO SCH (20:58)
[2017-09-06] MEDS: CMC:Dabigatran CAP(NF) 150 MG CAP PO SCH (20:59)
[2017-09-06] MEDS ORDERED: Omeprazole CAP* 20 MG PO SCH (21:00)
[2017-09-06] MEDS ORDERED: Zolpidem TAB* 10 MG PO SCH (21:00)
[2017-09-06] MEDS: Flecainide TAB* 100 MG PO SCH (21:05)
[2017-09-06] MEDS ORDERED: Heparin VIAL(*) 5000 UNITS/ML VIAL (FIVE THOUSAND) SUBCUT SCH (22:00)
--- NOTE | 2017-09-07 04:28 | HP ---
ADDENDUM: MEDICATION: Bevespi 04/13.8 mcg 2 puffs inhaled b.i.d. HOMERO DEL ANGEL NP [id number]/[facility] #: [id number] MTDD
[2017-09-07 07:46] VITALS: BP 161/85
[2017-09-07] MEDS ORDERED: Finasteride TAB* 5 MG PO SCH (09:00)
[2017-09-07] MEDS ORDERED: Diltiazem CD CAP* 120 MG PO SCH (09:00)
[2017-09-07] MEDS ORDERED: Diltiazem CD CAP* 180 MG PO SCH (09:00)
[2017-09-07] MEDS ORDERED: CMC:Escitalopram (NF) 10 MG TAB PO SCH (09:00)
[2017-09-07] MEDS ORDERED: Atorvastatin* 10 MG TAB PO SCH (09:00)
[2017-09-07] MEDS ORDERED: predniSONE TAB* 20 MG PO SCH (09:00)
[2017-09-07] MEDS: CMC:Dabigatran CAP(NF) 150 MG CAP PO SCH (09:01)
[2017-09-07] MEDS: DOXYcycline CAP(*) 100 MG PO SCH (09:01)
[2017-09-07] MEDS: Flecainide TAB* 100 MG PO SCH (09:02)
--- NOTE | 2017-09-07 10:53 | ED ---
Nicolle Handley Edward, scribed for Low Mendez MD on 09/06/17 at 1129 . Shortness of Breath - HPI Summary HPI Summary: 77 y/o BIBA c/o sudden onset SOB at 05:00 this morning. The pt woke up with the SOB. Associated sx: cough. PMHx COPD. Sx not alleviated by anything. - History of Current Complaint Hx Obtained From: Patient Onset/Duration: Sudden Onset Dyspnea At: Rest Alleviating Factors: Nothing Associated Signs & Symptoms: Cough (Nonproductive) - Allergy/Home Medications Allergies/Adverse Reactions: Allergies Allergy/AdvReac Type Severity Reaction Status Date / Time No Known Allergies Allergy Verified 09/06/17 11:28 Home Medications: Home Medications Glycopyrrolate-Formoterol Fuma [Bevespi Aerosphere 9-4.8 Mcg/Act] 2 inh INH BID 09/06/17 [History Confirmed 09/06/17] Sulfamethox/Trimethoprim SS* [Bactrim SS 400/80 TAB*] 1 tab PO DAILY 09/06/17 [ History Confirmed 09/06/17] PMH/Surg Hx/FS Hx/Imm Hx Previously Healthy: No Cardiovascular History: Reports: Hx Hypercholesterolemia, Hx Hypertension, Other Cardiovascular Problems/Disorders - ATRIAL FIBRILLATION Denies: Hx Pacemaker/ICD Respiratory History: Reports: Hx Chronic Obstructive Pulmonary Disease (COPD), Hx Sleep Apnea - current BiPAP user; compliant, Other Respiratory Problems/ Disorders - COPD- INHALERS, PRN OXYGEN GI History: Reports: Hx Gastroesophageal Reflux Disease, Other GI Disorders - GERD History: Reports: Hx Benign Prostatic Hyperplasia, Other Problems/ Disorders - ENLARGEF PROSTATE- DR. LYNCH FOLLOWS Musculoskeletal History: Reports: Hx Arthritis - LEFT HIP, Hx Tendonitis - LEFT SHOULDER- HAD CORTIZONE INJ Sensory History: Reports: Hx Cataracts - PHILLIP, Hx Contacts or Glasses - GLASSES Denies: Hx Hearing Aid Comment Only: Hx Glaucoma - TESTING FOR GLAUCOMA Opthamlomology History: Reports: Hx Cataracts - PHILLIP, Hx Contacts or Glasses - GLASSES Comment Only: Hx Glaucoma - TESTING FOR GLAUCOMA Neurological History: Denies: Other Neuro Impairments/Disorders Psychiatric History: Denies: Hx Panic Disorder - Surgical History Surgery Procedure, Year, and Place: LEFT HIP REPLACEMENT 05/21. CARDIAC CATH- 2011. 60'S PYLONIDAL CYST REMOVED. IMPLANT PENILE- AT [facility] [place] MRI SAFE UP TO 3T PER SAFTEY MANUAL 2012 (AMBICOR) REPORT IS ATTACHED TO MRI 12-19-2011 [facility]; Bilateral Cataract Surgery December 2012 Hx Anesthesia Reactions: No Infectious Disease History: No Infectious Disease History: Denies: Traveled Outside the [place] in Last 30 Days - Family History Known Family History: Positive: Unknown - Social History Alcohol Use: None Hx Substance Use: No Substance Use Type: Reports: None Hx Tobacco Use: Yes Smoking Status (MU): Former Smoker Review of Systems Constitutional: Negative Eyes: Negative ENT: Negative Cardiovascular: Negative Positive: Shortness Of Breath, Cough Gastrointestinal: Negative Genitourinary: Negative Musculoskeletal: Negative Skin: Negative Neurological: Negative Psychological: Normal All Other Systems Reviewed And Are Negative: Yes Physical Exam - Summary Physical Exam Summary: VITAL SIGNS: Reviewed. GENERAL: Patient is a well-developed and nourished male who is lying comfortable in the stretcher. Patient is not in any acute respiratory distress. HEAD AND FACE: No signs of trauma. No ecchymosis, hematomas or skull depressions. No sinus tenderness. EYES: PERRLA, EOMI x 2, No injected conjunctiva, no nystagmus. EARS: Hearing grossly intact. Ear canals and tympanic membranes are within normal limits. MOUTH: Oropharynx within normal limits. NECK: Supple, trachea is midline, no adenopathy, no JVD, no carotid bruit, no c- spine tenderness, neck with full ROM. CHEST: Symmetric, no tenderness at palpation LUNGS: Clear to auscultation bilaterally. No wheezing or crackles. CVS: Regular rate and rhythm, S1 and S2 present, no murmurs or gallops appreciated. ABDOMEN: Soft, non-tender. No signs of distention. No rebound no guarding, and no masses palpated. Bowel sounds are normal. EXTREMITIES: FROM in all major joints, no edema, no cyanosis or clubbing. NEURO: Alert and oriented x 3. No acute neurological deficits. Speech is normal and follows commands. SKIN: Dry and warm Triage Information Reviewed: Yes Vital Signs On Initial Exam: Initial Vitals Temp Pulse Resp BP Pulse Ox 98.1 F 91 30 201/98 98 09/06/17 11:23 09/06/17 11:23 09/06/17 11:23 09/06/17 11:23 09/06/17 11:23 Vital Signs Reviewed: Yes Diagnostics - Vital Signs Vital Signs Temp Pulse Resp BP Pulse Ox 09/06/17 11:23 98.1 F 91 30 201/98 98 - Laboratory Lab Results: Lab Results 09/06/17 09/06/17 09/06/17 Range/Units 11:35 11:35 11:35 WBC (3.5-10.8) 10^3/ul RBC (4.0-5.4) 10^6/ul Hgb (14.0-18.0) g/dl Hct (42-52) % MCV (80-94) fL MCH (27-31) pg MCHC (31-36) g/dl RDW (10.5-15) % Plt Count (150-450) 10^3/ul MPV (7.4-10.4) um3 Neut % (Auto) (38-83) % Lymph % (Auto) (25-47) % [place] % (Auto) (1-9) % Eos % (Auto) (0-6) % Baso % (Auto) (0-2) % Absolute Neuts (auto) (1.5-7.7) 10^3/ul Absolute Lymphs (auto) (1.0-4.8) 10^3/ul Absolute Monos (auto) (0-0.8) 10^3/ul Absolute Eos (auto) (0-0.6) 10^3/ul Absolute Basos (auto) (0-0.2) 10^3/ul Absolute Nucleated RBC 10^3/ul Nucleated RBC % INR (Anticoag Therapy) 0.94 (0.77-1.02) APTT 32.0 (26.0-36.3) seconds D-Dimer, Quantitative < 200 (Less Than 230) ng/mL Patient Temperature ABG pH (7.35-7.45) ABG pH (Temp Correct) ABG pCO2 (35-45) mmHg ABG pCO2 (Temp Corrct ABG pO2 (80-100) mmHg ABG pO2 (Temp Correct ABG HCO3 (19-31) mmol/L ABG O2 Saturation (95-98) % ABG Base Excess (-2.0-2.0) Respiration Rate O2 Delivery Device Ventilator Type Vent Mode FiO2 Inspiratory Time PEEP Pressure Support Pressure Control EPAP IPAP BiPAP Sodium 137 (133-145) mmol/L Potassium 3.5 (3.5-5.0) mmol/L Chloride 101 (101-111) mmol/L Carbon Dioxide 29 (22-32) mmol/L Anion Gap 7 (2-11) mmol/L BUN 21 (6-24) mg/dL Creatinine 0.97 (0.67-1.17) mg/dL Est GFR ( Amer) 97.0 (>60) Est GFR (Non-Af Amer) 75.5 (>60) BUN/Creatinine Ratio 21.6 H (8-20) Glucose 129 H (70-100) mg/dL Lactic Acid (0.5-2.0) mmol/L Calcium 9.0 (8.6-10.3) mg/dL Total Bilirubin 0.30 (0.2-1.0) mg/dL AST 16 (13-39) U/L ALT 11 (7-52) U/L Alkaline Phosphatase 87 (34-104) U/L Total Creatine Kinase 100 (10-223) U/L CK-MB (CK-2) 4.2 (0.6-6.3) ng/mL Troponin I 0.01 (<0.04) ng/mL C-Reactive Protein 4.84 (< 5.00) mg/L B-Natriuretic Peptide 122 H ( - 100) pg/mL Total Protein 7.2 (6.4-8.9) g/dL Albumin 4.5 (3.2-5.2) g/dL Globulin 2.7 (2-4) g/dL Albumin/Globulin Ratio 1.7 (1-3) Urine Color Urine Appearance Urine pH (5-9) Ur Specific [place] (1.010-1.030) Urine Protein (Negative) Urine Ketones (Negative) Urine Blood (Negative) Urine Nitrate (Negative) Urine Bilirubin (Negative) Urine Urobilinogen (Negative) Ur Leukocyte Esterase (Negative) Urine WBC (Auto) (Absent) Urine RBC (Auto) (Absent) Ur Squamous Epith Cells (Absent) Urine Bacteria (Absent) Hyaline Casts (Absent) Urine Glucose (Negative) Influenza A (Rapid) (Negative) Influenza B (Rapid) (Negative) 09/06/17 09/06/17 09/06/17 Range/Units 11:35 11:35 11:40 WBC 8.3 (3.5-10.8) 10^3/ul RBC 4.28 (4.0-5.4) 10^6/ul Hgb 12.7 L (14.0-18.0) g/dl Hct 38 L (42-52) % MCV 89 (80-94) fL MCH 30 (27-31) pg MCHC 34 (31-36) g/dl RDW 14 (10.5-15) % Plt Count 238 (150-450) 10^3/ul MPV 6 L (7.4-10.4) um3 Neut % (Auto) 65.9 (38-83) % Lymph % (Auto) 21.0 L (25-47) % [place] % (Auto) 6.9 (1-9) % Eos % (Auto) 5.5 (0-6) % Baso % (Auto) 0.7 (0-2) % Absolute Neuts (auto) 5.4 (1.5-7.7) 10^3/ul Absolute Lymphs (auto) 1.7 (1.0-4.8) 10^3/ul Absolute Monos (auto) 0.6 (0-0.8) 10^3/ul Absolute Eos (auto) 0.5 (0-0.6) 10^3/ul Absolute Basos (auto) 0.1 (0-0.2) 10^3/ul Absolute Nucleated RBC 0 10^3/ul Nucleated RBC % 0 INR (Anticoag Therapy) (0.77-1.02) APTT (26.0-36.3) seconds D-Dimer, Quantitative (Less Than 230) ng/mL Patient Temperature ABG pH (7.35-7.45) ABG pH (Temp Correct) ABG pCO2 (35-45) mmHg ABG pCO2 (Temp Corrct ABG pO2 (80-100) mmHg ABG pO2 (Temp Correct ABG HCO3 (19-31) mmol/L ABG O2 Saturation (95-98) % ABG Base Excess (-2.0-2.0) Respiration Rate O2 Delivery Device Ventilator Type Vent Mode FiO2 Inspiratory Time PEEP Pressure Support Pressure Control EPAP IPAP BiPAP Sodium (133-145) mmol/L Potassium (3.5-5.0) mmol/L Chloride (101-111) mmol/L Carbon Dioxide (22-32) mmol/L Anion Gap (2-11) mmol/L BUN (6-24) mg/dL Creatinine (0.67-1.17) mg/dL Est GFR ( Amer) (>60) Est GFR (Non-Af Amer) (>60) BUN/Creatinine Ratio (8-20) Glucose (70-100) mg/dL Lactic Acid 1.2 (0.5-2.0) mmol/L Calcium (8.6-10.3) mg/dL Total Bilirubin (0.2-1.0) mg/dL AST (13-39) U/L ALT (7-52) U/L Alkaline Phosphatase (34-104) U/L Total Creatine Kinase (10-223) U/L CK-MB (CK-2) (0.6-6.3) ng/mL Troponin I (<0.04) ng/mL C-Reactive Protein (< 5.00) mg/L B-Natriuretic Peptide ( - 100) pg/mL Total Protein (6.4-8.9) g/dL Albumin (3.2-5.2) g/dL Globulin (2-4) g/dL Albumin/Globulin Ratio (1-3) Urine Color Yellow Urine Appearance Cloudy Urine pH 5.0 (5-9) Ur Specific [place] 1.027 (1.010-1.030) Urine Protein 1+(30 mg/dl) H (Negative) Urine Ketones Negative (Negative) Urine Blood Negative (Negative) Urine Nitrate Negative (Negative) Urine Bilirubin Negative (Negative) Urine Urobilinogen Negative (Negative) Ur Leukocyte Esterase Negative (Negative) Urine WBC (Auto) Absent (Absent) Urine RBC (Auto) Trace(0-2/hpf) (Absent) Ur Squamous Epith Cells Present H (Absent) Urine Bacteria Absent (Absent) Hyaline Casts Present H (Absent) Urine Glucose Negative (Negative) Influenza A (Rapid) (Negative) Influenza B (Rapid) (Negative) 09/06/17 09/06/17 Range/Units 11:45 11:55 WBC (3.5-10.8) 10^3/ul RBC (4.0-5.4) 10^6/ul Hgb (14.0-18.0) g/dl Hct (42-52) % MCV (80-94) fL MCH (27-31) pg MCHC (31-36) g/dl RDW (10.5-15) % Plt Count (150-450) 10^3/ul MPV (7.4-10.4) um3 Neut % (Auto) (38-83) % Lymph % (Auto) (25-47) % [place] % (Auto) (1-9) % Eos % (Auto) (0-6) % Baso % (Auto) (0-2) % Absolute Neuts (auto) (1.5-7.7) 10^3/ul Absolute Lymphs (auto) (1.0-4.8) 10^3/ul Absolute Monos (auto) (0-0.8) 10^3/ul Absolute Eos (auto) (0-0.6) 10^3/ul Absolute Basos (auto) (0-0.2) 10^3/ul Absolute Nucleated RBC 10^3/ul Nucleated RBC % INR (Anticoag Therapy) (0.77-1.02) APTT (26.0-36.3) seconds D-Dimer, Quantitative (Less Than 230) ng/mL Patient Temperature Not Reportable ABG pH 7.39 (7.35-7.45) ABG pH (Temp Correct) Not Reportable ABG pCO2 46 H (35-45) mmHg ABG pCO2 (Temp Corrct Not Reportable ABG pO2 97 (80-100) mmHg ABG pO2 (Temp Correct Not Reportable ABG HCO3 26.7 (19-31) mmol/L ABG O2 Saturation 97.1 (95-98) % ABG Base Excess 2.3 H (-2.0-2.0) Respiration Rate Not Reportable O2 Delivery Device nasal cannula 4 lpm Ventilator Type Not Reportable Vent Mode Not Reportable FiO2 Not Reportable Inspiratory Time Not Reportable PEEP Not Reportable Pressure Support Not Reportable Pressure Control Not Reportable EPAP Not Reportable IPAP Not Reportable BiPAP Not Reportable Sodium (133-145) mmol/L Potassium (3.5-5.0) mmol/L Chloride (101-111) mmol/L Carbon Dioxide (22-32) mmol/L Anion Gap (2-11) mmol/L BUN (6-24) mg/dL Creatinine (0.67-1.17) mg/dL Est GFR ( Amer) (>60) Est GFR (Non-Af Amer) (>60) BUN/Creatinine Ratio (8-20) Glucose (70-100) mg/dL Lactic Acid (0.5-2.0) mmol/L Calcium (8.6-10.3) mg/dL Total Bilirubin (0.2-1.0) mg/dL AST (13-39) U/L ALT (7-52) U/L Alkaline Phosphatase (34-104) U/L Total Creatine Kinase (10-223) U/L CK-MB (CK-2) (0.6-6.3) ng/mL Troponin I (<0.04) ng/mL C-Reactive Protein (< 5.00) mg/L B-Natriuretic Peptide ( - 100) pg/mL Total Protein (6.4-8.9) g/dL Albumin (3.2-5.2) g/dL Globulin (2-4) g/dL Albumin/Globulin Ratio (1-3) Urine Color Urine Appearance Urine pH (5-9) Ur Specific [place] (1.010-1.030) Urine Protein (Negative) Urine Ketones (Negative) Urine Blood (Negative) Urine Nitrate (Negative) Urine Bilirubin (Negative) Urine Urobilinogen (Negative) Ur Leukocyte Esterase (Negative) Urine WBC (Auto) (Absent) Urine RBC (Auto) (Absent) Ur Squamous Epith Cells (Absent) Urine Bacteria (Absent) Hyaline Casts (Absent) Urine Glucose (Negative) Influenza A (Rapid) Negative (Negative) Influenza B (Rapid) Negative (Negative) Result Diagrams: 09/06/17 11:35 09/06/17 11:35 Lab Statement: Any lab studies that have been ordered have been reviewed, and results considered in the medical decision making process. - Radiology CXR Xray Interpretation: Positive (See Comments) - SUSPECT MILD INTERSTITIAL CONGESTION Radiology Interpretation Completed By: Radiologist - CT CHEST/THORAX CTA CT Interpretation: Positive (See Comments) - 1. Multiple centimeter and smaller right upper lobe nodules. These are worrisome for a primary are metastatic malignancy. 2. Right hilar, paratracheal, and subcarinal lymphadenopathy. This is concerning for metastatic lymphadenopathy. 3. Hiatal hernia CT Interpretation Completed By: Radiologist - EKG 1 EKG Interpretation: 11:42 - AFIB @ 74 BPM. Unchanged from previous EKG. Course/Dx - Course Assessment/Plan: 77 y/o BIBA c/o sudden onset SOB at 05:00 this morning. The pt woke up with the SOB. Associated sx: cough. PMHx COPD. Sx not alleviated by anything. EKG - 11:42 - AFIB @ 74 BPM. Unchanged from previous EKG. CHEST/ THORAX CTA SHOWS 1. Multiple centimeter and smaller right upper lobe nodules. These are worrisome for a primary are metastatic malignancy. 2. Right hilar, paratracheal, and subcarinal lymphadenopathy. This is concerning for metastatic lymphadenopathy. 3. Hiatal hernia. Test results are without significant abnormalities except slight anemia. Glucose 129. BNP 122, ua uti. Influenza a and b negative. In the ed course the pt was given iv fluids, solumedrol, duonebs and the pts sx improved. However while the pt was ambulating he developed sob and became hypoxic. Chest ct shows no pe but it shows multiple lymph nodes for which the radiologist believes may be malignant. I discussed the case with Lora Valera, working with Dr. Colon, who accepted the pt for admission. The pt is hemodynamically stable, A&Ox3. - Diagnoses Differential Diagnosis/HQI/PQRI: Positive: Asthma, Bronchitis, CHF, Chest Wall Pain, COPD Exacerbation, NM, Pneumonia, Unstable Angina Provider Diagnoses: COPD exacerbation, Multiple lung nodules - Physician Notifications Discussed Care of Patient With: Ashvin Colon Time Discussed With Above Provider: 14:20 Instructed by Provider To: Admit As Inpatient Discharge - Discharge Plan Condition: Stable Disposition: HOME The documentation as recorded by the Nicolle gabriel Edward accurately reflects the service I personally performed and the decisions made by me, Low Mendez MD.
== END 2017-09-07 10:45 | disposition home or self-care (01) ==
LOC: ED 11:11 → UNDOADMOB 14:10 → MED 14:10 → MEDTELE 14:10 → ED 15:14
PROVIDERS: ADMIT Internal Medicine; ATTEND Internal Medicine
DX: J44.1 Chronic obstructive pulmonary disease with (acute) exacerbation (principal); R91.8 Other nonspecific abnormal finding of lung field; R05 Cough; R06.02 Shortness of breath; Z87.891 Personal history of nicotine dependence
CPT/HCPCS: 36415; 36600; 71045; 71275; 80053; 81003; 81015; 82550; 82553; 82803; 83605; 83880; 84484; 85025; 85379; 85610; 85730; 86140; 87040; 87502; 93005; 94640; 94660; 94760; 99284; A9270-GY; G0378; J2930; J7512; Q9967

== ENCOUNTER 2017-09-23 11:15 | Day surgery (SDC) | payer MEDICARE, BC ==
[~2017-09-23 11:15] MED LIST: Buffered Lidocaine 0.9% SYRIN* 5 ML/SYR SYRINGE INTRADERM ONE; Famotidine IV* 10 MG/ML 2 ML (20 mg) IV ONE; Levalbuterol 0.63MG/3ML NEB* UNIT OF USE INH ONE
[2017-09-23] MEDS ORDERED: Famotidine IV* 10 MG/ML 2 ML (20 mg) ONE (11:26)
[2017-09-23] MEDS ORDERED: Levalbuterol 1.25MG/0.5ML NEB ONE (11:27)
[2017-09-23] MEDS ORDERED: Buffered Lidocaine 0.9% SYRIN* 5 ML/SYR SYRINGE ONE (11:27)
[2017-09-23] MEDS ORDERED: Midazolam* 1 MG/ML 10 ML VIAL (10 MG) ONE (11:39)
[2017-09-23] MEDS ORDERED: fentaNYL* 50 MCG/ML 2 ML VIAL (100 MCG VIAL) ONE ×2 (11:39→13:49)
[2017-09-23] MEDS ORDERED: Rocuronium* 10 MG/ML VIAL ONE (12:40)
[2017-09-23] MEDS ORDERED: Succinylcholine* 20 MG/ML 10 ML VIAL ONE (12:52)
[2017-09-23] MEDS ORDERED: Propofol* 10 MG/ML 20 ML BTL IV PUSH ONE (12:52)
[2017-09-23] MEDS ORDERED: Dexamethasone IV* 4 MG/ML 1 ML (4 MG) ONE (12:52)
[2017-09-23] MEDS ORDERED: Ondansetron INJ* 2 MG/ML VIAL ONE (12:52)
[2017-09-23] MEDS ORDERED: DiMENhydriNATE IV* 50 MG/ML VIAL ONE (14:58)
[2017-09-23] MEDS ORDERED: Acetaminophen TAB* 325 MG PO PRN (14:59)
[2017-09-23] MEDS ORDERED: oxyCODONE TAB* 5 MG TAB PO PRN (14:59)
[2017-09-23] MEDS ORDERED: DiMENhydriNATE IV* 50 MG/ML VIAL IV PUSH PRN (14:59)
[2017-09-23] MEDS ORDERED: Naloxone* 0.4 MG/ML 1 ML VIAL IV PRN (14:59)
[2017-09-23] MEDS ORDERED: Levalbuterol 0.63MG/3ML NEB* UNIT OF USE INH ONE ×2 (14:59→15:13)
[2017-09-23 16:02] VITALS: BP 139/62
--- NOTE | 2017-09-24 14:09 | PRO ---
BRONCHOSCOPY REPORT: DATE OF PROCEDURE: 09/23/17 ANESTHESIOLOGIST: Dr. Juarez. ANESTHESIA: General anesthesia. Refer to anesthesiologist's note for further details. PROCEDURE PERFORMED: Bronchoscopy with endobronchial ultrasound-guided fine needle aspiration from R4, station 7 lymph node, R10 lymph node. PREPROCEDURAL DIAGNOSIS: Mediastinal adenopathy. DESCRIPTION OF PROCEDURE: Informed consent was obtained from the patient prior to the procedure after all the risks and benefits were thoroughly explained. The patient recently hospitalized for management of pneumonia. The patient has history of COPD, requiring O2 supplementation. Recent CTA was suggestive of significantly enlarged mediastinal and hilar nodes. Bronchoscopy was scheduled for evaluation of lymphadenopathy. Appropriate time-out was performed and agreed by attending staff prior to the procedure. Flexible Olympus bronchoscope was inserted through ET tube for airway inspection. The patient noted to have thick white secretions predominantly on the left side which were suctioned. No endobronchial lesions were noted. All airways were patent. Olympus bronchoscope was then withdrawn and EBUS bronchoscope was inserted. Station R4 lymph node was sampled with 4 passes. Rapid on-site evaluation did not reveal malignant cells. Station 7 lymph node was sampled with 5 passes. Rapid on-site evaluation revealed malignant cells in 2 of the passes. Rest of the specimen was placed in CytoLyte. Station R10 lymph node was sampled with 4 passes. Rapid on-site evaluation did not reveal malignant cells. Rest of the specimen was placed in CytoLyte. Left-sided lymph nodes were not significantly enlarged and were not sampled. The patient tolerated the procedure well. The patient was extubated and seen in Recovery in optimal condition. [id number]/[facility] #: [id number] [facility]
== END 2017-09-23 16:05 | disposition home or self-care (01) ==
LOC: OR 11:15
PROVIDERS: ATTEND Internal Medicine
DX: C77.1 Secondary and unspecified malignant neoplasm of intrathoracic lymph nodes (principal); J44.9 Chronic obstructive pulmonary disease, unspecified; Z99.81 Dependence on supplemental oxygen; Z87.891 Personal history of nicotine dependence; I48.91 Unspecified atrial fibrillation; Z79.01 Long term (current) use of anticoagulants; I25.10 Atherosclerotic heart disease of native coronary artery without angina pectoris; G47.33 Obstructive sleep apnea (adult) (pediatric); R09.02 Hypoxemia; R91.8 Other nonspecific abnormal finding of lung field
CPT/HCPCS: 88172; 88173; 88177; 88305; A9270-GY; J0330; J1100; J1240; J2250; J2405; J2704; J3010; J7614

== ENCOUNTER 2017-10-27 08:45 | Day surgery (SDC) | payer MEDICARE, BC ==
[~2017-10-27 08:45] MED LIST changes: +Dexamethasone IV* 4 MG/ML 1 ML (4 MG) IV SLOW PU ONE; -Famotidine IV* 10 MG/ML 2 ML (20 mg) IV ONE; -Levalbuterol 0.63MG/3ML NEB* UNIT OF USE INH ONE; +Sodium Citrate/Citric Acid* 15 ML UDC PO ONE
[2017-10-27] MEDS ORDERED: Dexamethasone IV* 4 MG/ML 1 ML (4 MG) ONE (08:54)
[2017-10-27] MEDS ORDERED: Sodium Citrate/Citric Acid* 15 ML UDC ONE (08:54)
[2017-10-27] MEDS ORDERED: Buffered Lidocaine 0.9% SYRIN* 5 ML/SYR SYRINGE ONE (08:54)
[2017-10-27] MEDS ORDERED: ceFAZolin 2 GM (*##) 2 GM/100 ML BAG USE CEFA2SOL IVPB ONE (08:54)
[2017-10-27] MEDS ORDERED: fentaNYL* 50 MCG/ML 2 ML VIAL (100 MCG VIAL) ONE (10:33)
[2017-10-27] MEDS ORDERED: Midazolam* 1 MG/ML 2 ML VIAL (2 MG) ONE (10:33)
[2017-10-27] MEDS ORDERED: Propofol* 500 MG/50 ML BTL ONE (10:34)
[2017-10-27] MEDS ORDERED: Lidocaine 2% PF * 5 ML VIAL ONE (10:34)
[2017-10-27] MEDS ORDERED: Lidocaine 1% INJ* 10 MG/ML 30 ML SDV ONE (10:49)
[2017-10-27] MEDS ORDERED: fentaNYL* 50 MCG/ML 2 ML VIAL (100 MCG VIAL) IV PRN (11:09)
[2017-10-27] MEDS ORDERED: Acetaminophen TAB* 325 MG PO PRN (11:09)
[2017-10-27] MEDS ORDERED: Levalbuterol 1.25MG/0.5ML NEB INH PRN (11:09)
[2017-10-27] MEDS ORDERED: Naloxone* 0.4 MG/ML 1 ML VIAL IV PRN (11:09)
[2017-10-27] MEDS ORDERED: HYDROcodone/ACETAMIN 5-325 MG* 1 TAB PO PRN ×2 (11:09)
[2017-10-27] MEDS ORDERED: HYDROmorphone INJ* 1 MG/ML CARPUJECT SYRINGE IV PRN (11:09)
--- NOTE | 2017-10-27 14:18 | RAD ---
INDICATION: RIGHT chest PowerPort placement. COMPARISON: No relevant prior exams available on the [facility] PACS for comparison. TECHNIQUE: 11.7 seconds fluoroscopy. FINDINGS: Spot image documents a RIGHT chest port with the catheter extending along the course of the superior vena cava to the level of the RIGHT atrium however the tip of the catheter is poorly visualized. IMPRESSION: Procedural fluoroscopy. CPT II Codes: 6045F
[2017-10-27 14:23] VITALS: BP 132/70
--- NOTE | 2017-10-27 15:06 | RAD ---
HISTORY: Status post PowerPort placement COMPARISONS: September 06, 2017 VIEWS: 1: frontal portable view of the chest at 2:25 PM FINDINGS: LINES AND TUBES: A right-sided chest port is noted from a subclavian approach with the tip overlying the cavoatrial junction. CARDIOMEDIASTINAL SILHOUETTE: The cardiac silhouette is enlarged. The cardiomediastinal silhouette is otherwise normal for portable technique. PLEURA: The costophrenic angles are sharp. No pleural abnormalities are noted. There is no appreciable pneumothorax. LUNG PARENCHYMA: There is a mild diffuse reticular pattern with indistinct pulmonary vessels. ABDOMEN: The upper abdomen is clear. There is no subphrenic gas. BONES AND SOFT TISSUES: No bone or soft tissue abnormalities are noted. IMPRESSION: 1. LINES AND TUBES ABOVE. 2. NO APPRECIABLE PNEUMOTHORAX. 3. CARDIOMEGALY WITH MILD PULMONARY INTERSTITIAL EDEMA.
--- NOTE | 2017-10-28 21:55 | OP ---
CC: Jaya Sullivan MD * DATE OF OPERATION: 10/27/17 - [facility] DATE OF : 44 SURGEON: Kevin Ovalle MD [employer] DIRECTOR: None. ANESTHESIOLOGIST: Dr. Mosqueda. ANESTHESIA: Local MAC. PRE-OP DIAGNOSIS: Lung carcinoma. POST-OP DIAGNOSIS: Lung carcinoma. OPERATIVE PROCEDURE: Placement of PowerPort to right subclavian. ESTIMATED BLOOD LOSS: Minimal. IV FLUIDS: Crystalloid. SPECIMEN: None. DRAINS: None. COMPLICATIONS: None. COUNTS: Instrument, needle, sponge counts were correct. DESCRIPTION OF PROCEDURE: The patient was brought to the operating room and placed on the table supine. Sequential compression devices were placed on both lower extremities. Intravenous sedation was administered. He was positioned and padded appropriately. He was prepped and draped in the sterile fashion. Time-out was performed. He did receive appropriate antibiotics. Local anesthetic was infiltrated into the skin and soft tissue. The right subclavian vein was accessed on first pass with an 18-gauge needle and then a guidewire was placed into the superior vena cava under fluoroscopic guidance without difficulty. Additional anesthetic was infiltrated into the right upper chest and a subcutaneous pocket was created. An 8-K[place] PowerPort was back tunneled from the guidewire insertion site and then under fluoroscopic guidance , the dilator and peel-away sheath were advanced into the superior vena cava. The guidewire and dilator were removed and the catheter was advanced into the superior vena cava. The tip was identified at the atrial caval junction. The catheter was cut at 20 cm, connected to the PowerPort, which was placed into the subcutaneous pocket and sutured into place with a single suture of 2-0 Prolene. The port was accessed. It [place] and flushed easily. The pocket was closed in two layers with 3-0 Polysorb for the subcutaneous tissue, and 4-0 Monocryl was used to close the skin in a running locking fashion. The counter incision at the guidewire insertion site was closed in two layers. Steri- Strips were applied with a Tegaderm dressing. The patient tolerated the procedure well and was transferred to Recovery in a stable condition. [id number]/[facility] #: [id number] [facility]
== END 2017-10-27 15:09 | disposition home or self-care (01) ==
LOC: OR 08:45
PROVIDERS: ATTEND Surgery
DX: C34.90 Malignant neoplasm of unspecified part of unspecified bronchus or lung (principal); I51.7 Cardiomegaly; G47.33 Obstructive sleep apnea (adult) (pediatric); J44.9 Chronic obstructive pulmonary disease, unspecified; Z87.891 Personal history of nicotine dependence; Z79.899 Other long term (current) drug therapy; I48.2 Chronic atrial fibrillation; Z79.01 Long term (current) use of anticoagulants; I10 Essential (primary) hypertension; I25.10 Atherosclerotic heart disease of native coronary artery without angina pectoris; E78.5 Hyperlipidemia, unspecified; E66.01 Morbid (severe) obesity due to excess calories; Z68.34 Body mass index [BMI] 34.0-34.9, adult
CPT/HCPCS: 71045; 76000; A9270-GY; C1788; J1100; J1642; J2250; J2704; J3010

== ENCOUNTER 2017-12-18 21:40 | Emergency (ER) | payer MEDICARE, BC ==
--- OUTSIDE RECORDS SUMMARY | 2017-12-18 22:24 | XMS REPORT ---
:1940 External Reference #:[id number] Author Organization [facility] Address [address] [address] Phone [phone] Care Team Providers Name Role Phone Aj Miller MD Primary Care Physician Unavailable Payers Type Date Identification Numbers Payment Provider Subscriber Medicare Primary Effective: Policy Number: Medicare Juan Ramon Patel 2007 [id number] PayID: [id number] [address] [place] [address] Medigap Part B Effective: 2012 Policy Number: ENZO Jocelyn Patel [id number] PayID: [id number] [address] [address] JUAN Moses [address] Medigap Part B Effective: 2010 Policy Number: BS Mandy Patel [id number] Expires: 2012 Group Number: [id number] [address] PayID: [id number] JUAN Moses [address] Problems Date Description Provider Status Onset: 10/21/2011 Atrial fibrillation Matty Stafford M.D. Onset: 10/21/2011 Electrocardiogram abnormal Matty Stafford M.D. Onset: 10/21/2011 Dyspnea Matty Stafford M.D. Onset: 10/21/2011 Hyperlipidemia Matty Stafford M.D. Onset: 10/21/2011 Mitral valve disorder Matty Stafford M.D. 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 Onset: 03/23/2012 Benign essential hypertension Matty Stafford M.D. Onset: 03/31/2012 Coronary arteriosclerosis Matty Stafford M.D. [...] contributory : (age 56 Father due to NM Years) : (age 73 Mother due to [...] Form Strength Qnty SIG Indications Ordering Provider Ipratropium 10/23 Active Solution 0.02% 187.5 1 vial in Melissa Glasgow ml nebulizer Marcela 2 times a day Bevespi 07/27 Active Aerosol 9-4.8mcg/ 2unit 2 puffs Melissa Aerosphere /2016 Act s twice Marcela daily MD Osorio CD 07/02 Active Caps ER 120mg 30cap 1 by mouth Qukelli 24HR s every day Aleisha Hanna M.D. Oxygen 12/11 Active Misc 1unit 3lpm as s directed Amoxicillin 07/16 Active Capsules 500mg 16cap 4 tablets Dir s 1 hour Samir, before M.D. dental work Xopenex 07/27 Active Solution 0.63mg/3 prn Qutayb ML Aleisha Hanna M.D. Lipitor 07/23 Active Tablets 10mg 30tab 1 PO qd Andrzejtayb s Aleisha Hanna M.D. Lexapro Active Tablets 20mg 1 PO qd Unknown Omeprazole Active Capsules DR 20mg 90cap 1 PO qd s Cpap Active qhs Finasteride Active Tablets 5mg 1 tablet Unknown po daily Pradaxa Active Capsules 150mg 60cap po bid s Hydrocodone/Aceta Active Tablets 5-325mg 20tab one or two Unknown minophen / s po every 4 - 6 hours prn pain Xopenex HFA Active Aerosol 45mcg/Act 1unit 2 puffs s qid prn Ambien Active Tablets 5mg 20tab 1 po s tablet at bedtime prn Triamterene Active 25mg 1 tablet Unknown daily Flecainide Active Tablets 50mg 1 and 1/2 Qutaybeh Acetate tablets by S. mouth Jacques twice a , M.D. day Sulfamethoxazole Active once daily Prednisone Active TBPK 10mg (21) 45uni 1 tab for Melissa ts 2 weeks, Marcela, 1/2 tab MD daily Potassium Active Tablets ER 20Meq Take 1 Unknown Chloride Kami ER Tablet By Mouth Two Times Daily Ondansetron HCL Active Tablets 4mg Take 1 Unknown Tablet By Mouth Every 4 Hours as Needed Benadryl-Lidocain Active Unknown e Viscous-Maalox Advair Diskus 06/02 Hx Aerosol 500-50mcg inhale one /Dose dose by - mouth 07/13 twice daily Multivitamins 12/11 Hx Capsules 1 by [...] - q4-6 hours M.D. 05/03 prn pain Cardizem CD 05/26 Hx Caps ER 180mg 90cap 1 by mouth 24HR s every day S. - [facility] 07/02 , M.D. Flecainide 09/25 Hx Tablets 75mg 180ta 1 po daily [facility] , [facility]. Celebrex 03/08 Hx Capsules 100mg 360ca 1 po bid tayb ps S. [facility] 10/20 , M.D. Finasteride 03/08 Hx Tablets 5mg 90tab qd po Qutayb s [facility] 01/[facility] , M.D. Aspirin 03/08 Hx Tablets 81mg 1 po qd [facility] 04/18 , M.D. Fluticasone 03/08 Hx Suspension 50mcg/Act 1mon 1 spray Qutaybeh Propionate each S. - nostril in [facility] 08/14 am , M.D. Medrol Dosepak 09/21 Hx Tablets 4mg For Resp Infection S[facility] 03[facility] , M.D. Flecainide 06/22 Hx Tablets 50mg 60tab 1 po bid Qutaybeh Acetate s [facility] 09/[facility] , M.D. Aspirin 02/17 Hx Tablets 325mg 1 PO qd Qutayb S. - [facility] 03/08 , M.D. Centrum Silver 02/17 Hx Tablets 1 PO qd yb S. - [facility] 03/08 , M.D. Amiodarone HCL 07/15 Hx Tablets 200mg Take One Qutayb And A Half S. - bid Times [facility] 07/15 2 Weeks , M.D. Then One Tab bid For 5 Weeks Amiodarone HCL 07/15 Hx Tablets 200mg 1 po qd Qutayb S. - [facility] 05/25 , M.D. Amiodarone HCL 05/27 Hx Tablets 200mg take one Qutayb and a half S. - bid times [facility] 07/15 2 weeks , M.D. then one tab bid for 5 weeks Lexapro 05/27 Hx Tablets 90tab 1 PO qd 15 s mg S. - [facility] 05/26 , M.D. Rozerem 05/27 Hx Tablets 8mg Use prn Qutayb Sleep S. - [facility] 02/17 , M.D. Biaxin 05/27 Hx Tablets 500mg 20tab 1 PO bid s prn S. - [facility] 05/26 , M.D. Coumadin 05/13 Hx Tablets 2.5mg 30tab Use as s Directed S. - [facility] 02/17 , M.D. Aspirin 10/29 Hx Tablets 325mg 1 PO qd Qutayb S. - [facility] 05/05 , M.D. Tylenol 09/01 Hx Tablets 325mg 100ta 2 Tabs qid tayb bs prn S. - Pain/Dandridge [facility] 08/14 arnaud Rivers M.D. /2009 Cardizem 09/01 Hx Tablets 180mg 90tab 1 po qd Qutayb s S. - [facility] 05/26 , M.D. /2011 Xopenex Inhaler 07/27 Hx prh Qutayb S. - [facility] 05/05 , M.D. /2006 Advair Diskus 07/27 Hx Inhaler 250mcg;50 1 puff bid Qutayb mcg S. - [facility] 09/01 , M.D. /2006 Cardizem CD 07/27 Hx Capsules 120mg 30cap 1 po qd Qutayb s S. - [facility] 09/01 , M.D. /2006 Coumadin 07/27 Hx Tablets 5mg 30tab ii po 05/06 Qutayb s and 05/07 S. - then one [facility] 02/17 po qd po , M.D. /2007 qd Hydrochlorothiazi 07/23 Hx Tablets 25mg 90tab 1 po qd Qutaybeh de s [facility] - [facility] 07/[facility] , M.D. /2005 Serevent Diskus 07/23 Hx Powder 50mcg bid Qutaybeh Inhalation [facility]. - [facility] 07/27 , M.DWillam /2005 Spiriva 07/23 Hx Capsules 18mcg qd Qutaybeh Handihaler [facility]. - [facility] 08/30 , M.DWillam /2017 Albuterol 07/23 Hx Aerosol 90mcg/Dos 2 puffs Qutaybeh Inhalation e qid prn S. - [facility] 07/27 , M.D. /2005 Enablex 07/23 Hx Tablets 15mg qd [facility] M.DWillam /2005 Ecotrin 07/23 Hx Tablets 81mg 1 po qd Qutayb [facility] 09/01 , M.DWillam /2006 Skelaxin 07/23 Hx Tablets 800mg 1/2 To 1 Tab Q 8 S. - HRS prn [facility]dah 03/23 , M.DWillam /2011 Ibuprofen 07/23 Hx Tablets 600mg 1 po q8h Qutayb prn S. - [facility] 09/01 , M.D. /2006 Pulmicort 00/00 Hx Inhaler 180 3Mont 2 puff bid Unknown Flexhaler /0000 h - 06/28 Centrum Silver Hx Tablets daily Unknown Ultra Mens /0000 - 06/02 Vesicare Hx Tablets 10mg 30tab 1 po qd Unknown / s - 10/20 Celebrex Hx Capsules 200mg 1 po bid Unknown /0000 - 03/01 Vesicare Hx Tablets 5mg 1 qhs Unknown / - 03/01 Doxycycline Hx Capsules 100mg 14cap bid po Unknown Hyclate / s - 05/03 Hydrocodone Hx Tablets 5/500mg 40tab 1 tablet Unknown Bitartrate/Acetam / s by mouth inophen - every 6 /24 hours needed Vitamin C Hx 1 tablet Unknown po daily - 01/02 Advair Diskus Hx Aerosol 250-50mcg 1 puff by /Dose mouth - twice a Medications Administered in Office Medication Date Status Form Strength Qnty SIG Indications Ordering Provider Depomedrol Administered Injection k Samir, 80MG 013 M.D. Vital Signs Date Vital Result Comment 12/10/2017 Height 66 inches 5'6" Weight 200.38 lb Heart Rate 72 /min BP Systolic Sitting 114 mmHg Lue reg cuff BP Diastolic Sitting 58 mmHg Lue reg cuff Respiratory Rate 18 /min O2 % BldC Oximetry 93 % On 3L O2 via nasal canula BMI (Body Mass Index) 32.3 kg/m2 10/21/2017 Height 66 inches 5'6" Weight 215.00 lb Heart Rate 78 /min BP Systolic Sitting 140 mmHg BP Diastolic Sitting 76 mmHg Respiratory Rate 18 /min Body Temperature 98.1 F BMI (Body Mass Index) 34.7 kg/m2 09/29/2017 Height 66 inches 5'6" Weight 215.00 lb Heart Rate 80 /min BP Systolic Sitting 132 mmHg BP Diastolic Sitting 68 mmHg Respiratory Rate 14 /min O2 % BldC Oximetry 96 % BMI (Body Mass Index) 34.7 kg/m2 09/14/2017 Height 66 inches 5'6" Weight 216.00 lb Heart Rate 72 /min BP Systolic Sitting 132 mmHg BP Diastolic Sitting 80 mmHg Respiratory Rate 14 /min O2 % BldC Oximetry 93 % on 3L BMI (Body Mass Index) 34.9 kg/m2 08/31/2017 Height 66 inches 5'6" Weight 219.00 [...] Test Date Test Result H/L Range Note Laboratory test 10/06/2017 Point of Care 122 mg/dL High 70-100 1 finding Glucose Laboratory test 09/23/2017 Cytology Non-Recycling Or Rubbish Collector SEE RESULT BELOW 2 finding Arterial Blood Gas 01/03/2015 PH Arterial 7.39 7.35-7.45 Pco2 Arterial 38 mmHg 35-45 Po2 Arterial 78 mmHg Low 80-100 O2 Saturation Arterial 97.1 % 95-98 Base Excess Arterial -1.7 -2.0-2.0 3 Hco3 Arterial 23.5 mmol/L 19-31 Basic Metabolic Panel 06/02/2012 Sodium 140 mmol/L 133-145 Potassium 4.5 mmol/L 3.5-5.0 Chloride 106 mmol/L 101-111 Co2 Carbon Dioxide 28.0 mmol/L 22-32 Anion Gap 6.0 mmol/L 2-11 Glucose 96 mg/dL 70-100 Blood Urea Nitrogen 14 mg/dL 6-24 Creatinine 0.80 mg/dL 0.50-1.40 BUN/Creatinine Ratio 17.5 8-20 Calcium 8.6 mg/dL 8.1-9.9 Egfr Non- 95.6 >60 Egfr 122.9 >60 4 CBC Auto Diff 06/02/2012 White Blood Count [...] Laboratory test finding 06/02/2012 Inr 1.01 0.82-1.17 5 Activated Partial Thrombo Time 35.4 SEC 25.15-38.53 6 Type & Screen 06/02/2012 Patient Blood Type B Positive Antibody Screen NEGATIVE Urinalysis 06/02/2012 Urine Color Yellow Urine Appearance Clear Urine Specific [place] 1.022 1.010-1.030 Urine Esterase Negative Negative Urine Nitrate Negative Negative Urine Urobilinogen Negative Negative Urine Protein Negative Negative Urine pH 7.0 5-9 Urine Blood Negative Negative Urine Ketones Negative Negative Urine Bilirubin Negative Negative Urine Glucose Negative Negative Protime 03/24/2012 Inr 0.90 0.88-1.13 7 Protime 10.7 SEC 10.3-13.5 8 CBC With Manual Diff 03/24/2012 White Blood [...] Basophil 1 % 0-2 RBC Morphology NORMAL Cath Panel 03/24/2012 PTT (Aptt) 27.9 SEC 25.1-38.5 Basic Metabolic Panel 03/24/2012 Sodium 138 mmol/L 135-145 Potassium 4.2 mmol/L 3.5-5.0 Chloride 106 mmol/L 101-111 Co2 (Carbon Dioxide) 27.0 mmol/L 22-32 Anion Gap 5.0 mmol/L 2-11 9 Glucose 106 mg/dL High 70-100 BUN 15 mg/dL 6-24 Creatinine 0.8 mg/dL 0.50-1.40 One Over Creatinine 1.25 BUN/Creatinine Ratio 18.8 8-20 Calcium 8.8 mg/dL 8.1-9.9 eGFR Non- 95.6 > 60 eGFR 122.9 > 60 10 Liver Function Panel 08/14/2008 Total Protein 6.3 GM/DL 6.2-8.1 Albumin 3.9 GM/DL 3.2-5.2 Globulin 2.4 GM/DL 2-4 Albumin/Globulin Ratio 1.6 1-3 Bilirubin Total 0.7 mg/dL 0.4-1.5 Bilirubin Direct 0.1 mg/dL 0.1-0.5 Indirect Bilirubin 0.6 mg/dL 0.1-0.75 Alkaline Phosphatase 94 U/L 39-117 Alt (SGPT) 17 U/L 17-63 Ast (Sgot) 17 U/L 12-42 Laboratory test finding 08/14/2008 TSH 4.05 MIU/ML 0.34-5.60 T3 Total 0.85 NG/ML 0.5-1.7 Thyroxine Free 0.87 NG/ML 0.61-1.24 11 Laboratory test finding 10/20/2007 TSH 3.34 MIU/ML 0.34-5.60 T3 Total 0.85 NG/ML 0.5-1.7 Troponin-I (TnI) 0.02 NG/ML 0-0.06 12 Liver Function Panel 10/20/2007 Albumin/Globulin Ratio 1.5 [...] 6.8 GM/DL 6.2-8.1 Protime 05/25/2007 Inr 2.38 13 Protime 18.5 High 10.9-13.1 Protime 07/31/2006 Inr 1.00 14, 15 Protime 12.0 10.9-13.1 14 1 [employer]: [id number] SEE RESULT BELOW Name: JUAN RAMON PATEL : [address]: Melissa Medrano MD Acct: [id number] Unit: [id number] AGE: 77 Location: [place] Re09/23/17 SEX: M [place] [facility] [place]: [id number] SUMIT: 09/23/17-[address]: Melissa Medrano MD REQ: [id number] RECD: 09/23/17-1444 STATUS: FELICITY CASPER DR: Aj Miller MD _ ORDERED: FNA-IMG GUID BX/3, CY ADEQ-ADDL P/4, LEVEL 4/3, CYTO ADEQ-1ST P/3 FINAL DIAGNOSIS 1) Lymph node, R-4, endobronchial Ultrasound guided, fine needle aspiration: -- Malignant- metastatic adenocarcinoma. 1) Lymph node, station-7, endobronchial Ultrasound guided, fine needle aspiration: -- Malignant- metastatic adenocarcinoma. 2) Lymph node, R-10, endobronchial Ultrasound guided, fine needle aspiration: -- Malignant- metastatic adenocarcinoma. COMMENT: Cell blocks were prepared in the evaluation of each specimen. Cell block material shows insufficient tissue for additional testing. Attempts to perform immunohistochemistry were initiated but the material is insufficient. There is insufficient material for molecular studies. Dr. Carroll reviewed this case in intradepartmental consultation and agrees with the diagnosis. #1. LYMPH NODE - US GUIDED R-4 LYMPH NODE FINE NEEDLE ASPIRATION, #2. LYMPH NODE - US GUIDED ST-7 LYMPH NODE FINE NEEDLE ASP[IRATION, #3. LYMPH NODE - US GUIDED R-10 LYMPH NODE FINE NEEDLE ASPIRATION CONTINUED ON NEXT PAGE * ML=Testing performed at Main Lab DEPARTMENT OF PATHOLOGY, [address] [place] [address] Jose R Carroll M.D. Director [facility] # [id number] RUN DATE: 09/25/17 [facility] LAB LIVE PAGE 2 Patient: JUAN RAMON PATEL [id number] (Continued) CLINICAL HISTORY (Continued) CLINICAL HISTORY Smoker, lung mass, enlarged lymph nodes. IMMEDIATE INTERPRETATION 1) All passes adequate 2) Passes 1-3 inadequate, passes 4-5 adequate 3) Pass 1 inadequate, pass 2-3 adequate GROSS DESCRIPTION #1) US guided endobronchial fine needle aspiration x 3 pass(es) with 3 alcohol fixed slides and needle rinse in formalin for cell block. #2) US guided endobronchial fine needle aspiration x 5 pass(es) with 8 alcohol fixed slides and 2 needle rinse in formalin for cell blocks labeled [id number] and [id number] 184M. #3 US guided endobronchial fine needle aspiration x 3 pass(es) with 4 alcohol fixed slides and needle rinse in formalin for cell block. Signed (signature on file) Bailey Love MD 1425 END OF REPORT * ML=Testing performed at Main Lab DEPARTMENT OF PATHOLOGY, [address] [place] [address] Jose R Carroll M.D. Director [facility] # [id number] 3 Reference ranges based on room air. 4 Because ethnic data is not always readily [...] 15-29 5 Kidney failure <15 (or dialysis) 5 Effective May 10, 2012, in conjunction with the upgrade of the hospital information system, [facility] will release the International Normalized Ratio [...] from prosthetic heart valves 2.5 - 3.5 6 AA 06/08 7 Recommended INR for Patients on Oral Anticoagulants Prophylaxis 2.0 - 3.0 Treatment of thrombosis 2.0 - 3.0 Prevention of embolism 2.0 - 3.0 Prevention of embolism from prosthetic heart valves 2.5 - 3.5 8 DIAGNOSIS,TREATMENT,AND THERAPY MUST BE BASED ON THE INR VALUE ALONE. 9 Anion gap measurement may be of limited value in the presence of any alkalosis, especially in a combined acid base disorder. . 10 Because ethnic data is not always readily [...] 15-29 5 Kidney failure <15 (or dialysis) 11 PLEASE NOTE NEW REFERENCE RANGES. 12 New Reference Range and Interpretation effective 05/13/02 TnI (ng/ml) INTERPRETATION <0.06 ng/ml NOT SUPPORTIVE OF DIAGNOSIS OF NM 0.06 - 0.50 ng/ml INDETERMINATE: SUGGEST SERIAL STUDIES IF CLINICALLY INDICATED. > 0.5 ng/ml CONSISTENT WITH DIAGNOSIS OF NM . 13 JOON VALUE=2.00 ( OF 05/26/06) Recommended INR for Patients on Oral Anticoagulants Prophylaxis 2.0 - 3.0 Treatment of thrombosis 2.0 - 3.0 Prevention of embolism 2.0 - 3.0 Prevention of embolism from prosthetic heart valves 2.5 - 3.[address] HATCH AT [phone] 15 JOON VALUE=2.00 ( OF 05/26/06) Recommended INR for Patients on Oral Anticoagulants Prophylaxis 2.0 - 3.0 Treatment of thrombosis 2.0 - 3.0 Prevention of embolism 2.0 - 3.0 Prevention of embolism from prosthetic heart valves 2.5 - 3.5 Procedures Date CPT Code Description Status 10/27/2017 83759 Fluoroscopic Guidance For Cent Completed 10/27/2017 27471 Insertion Tunneled Cent Venous Cathr W Subcut Port 5 Completed Yrs Or Oldr 09/23/2017 52164 Endobronchial Ultrasound=>3 Completed 08/05/2017 95103 Diffusing Capacity Completed 08/05/2017 54243 Plethysmography Determination Lung Volumes & Per Completed Airway Resist 08/05/2017 57399 Pulmonary Stress Test Simple Completed 08/05/2017 65673 Pulmonary Function><Bronchodil Completed 07/02/2017 37942 Holter Monitor Review (24 hr)dr courtney & mago Completed only 06/30/2017 62316 ECG Monitor/Recording W/Visual Superimposition Scanning Completed 06/30/2017 76340 EKG Tracing & Interpretation Completed 06/24/2017 04809 ECHO Transthoracic, Real-Time 2D With Doppler And Color Completed Flow 06/24/2017 76604 ECHO Transthoracic, Real-Time 2D With Doppler And Color Completed Flow 06/03/2017 54497 EKG Tracing & Interpretation Completed 09/10/2016 38937 EKG Tracing & Interpretation Completed 11/19/2015 50924 ECHO Transthoracic, Real-Time 2D With Doppler And Color Completed Flow 11/11/2015 78759 Holter Monitor Review (24 hr)dr courtney & mago Completed only 11/06/2015 79521 EKG Tracing & Interpretation Completed 03/09/2015 92983 EKG Tracing & Interpretation Completed 01/08/2015 04016 Laparoscopy Cholecystectomy With Cholangiography Completed 01/04/2015 43443 EKG, Interpretation Only Completed 04/06/2014 69965 EKG Tracing & Interpretation Completed 03/22/2014 32931 Holter Monitoring 24 HR New Completed 03/21/2014 79814 Holter Monitoring 24 HR New Completed 02/24/2014 11085 ECHO Transthoracic, Real-Time 2D With Doppler And Color Completed Flow 01/26/2014 70260 EKG Tracing & Interpretation Completed 05/03/2013 19111 EKG Tracing & Interpretation Completed 11/18/2012 91936 Rad Shoulder Comp, Min. 2 Views Completed 11/18/201289830 Inject/Drain Joint/Bursa Major Completed 09/07/2012 50412 Rad Exam; Hip Unilat Completed 09/07/2012 29869 Rad Exam; Pelvis Completed 07/19/2012 50983 Rad Exam; Hip Unilat Completed 07/19/2012 37912 Rad Exam; Pelvis Completed 06/08/2012 15943 THR Total Hip Replacement Completed 06/08/2012 35477 THR Total Hip Replacement Completed 05/03/2012 48689 Rad Exam; Hip Unilat Completed 05/03/2012 48295 Rad Exam; Pelvis Completed 04/20/2012 17443 ECHO Transthoracic, Real-Time 2D With Doppler And Color Completed Flow 03/26/2012 54283 Left Heart Cath. Incl S/I Coronaries, Angio S/I V Gram Completed If Done 03/26/2012 03633 Cath PLMT&NJX L Ventriculog Img S&I Completed 03/26/2012 63262 Left Health Catheterization W/Inj For Left Completed Ventriculography,S&I 03/23/2012 32817 EKG Tracing & Interpretation Completed 03/16/2012 66473 Treadmill Interp/Report Only Completed 03/16/2012 11410 Stress Test Supervsn W/Out I/R Completed 03/01/2012 31240 EKG Tracing & Interpretation Completed 10/21/2011 53692 EKG Tracing & Interpretation Completed 04/18/2011 67062 EKG Tracing & Interpretation Completed 10/10/2010 13899 Holter Monitor Completed 10/10/2010 61614 Holter Monitoring 24 HR New Completed 09/25/2010 96258 EKG Tracing & Interpretation Completed 09/16/2010 49152 EKG Tracing & Interpretation Completed 08/23/2010 48962 ECHO Transthoracic, Real-Time 2D With Doppler And Color Completed Flow 02/12/2010 59890 EKG Tracing & Interpretation Completed 08/14/2009 75130 ECHO Transthoracic, Real-Time 2D With Doppler And Color Completed Flow 08/14/2009 84613 EKG Tracing & Interpretation Completed 03/08/2009 74363 EKG Tracing & Interpretation Completed 09/21/2008 92371 EKG Tracing & Interpretation Completed 08/29/2008 95030 Holter Monitor Interpretation Completed 06/22/2008 37665 EKG Tracing & Interpretation Completed 06/16/2008 81464 Treadmill Interp/Report Only Completed 06/16/2008 98959 Treadmill Interp/Report Only Completed 06/16/2008 67533 Stress Test Supervsn W/Out I/R Completed 06/01/2008 66747 Echocardiogram Completed 06/01/2008 23779 Echocardiogram Completed 06/01/2008 72204 Pulse Doppler & Continuous Wave Completed 06/01/2008 98026 Pulse Doppler & Continuous Wave Completed 06/01/2008 87299 Pulse Doppler & Continuous Wave Completed 06/01/2008 24704 Color Doppler Completed 06/01/2008 30013 Color Doppler Completed 05/26/2008 01641 EKG Tracing & Interpretation Completed 05/26/2008 05558 EKG Tracing & Interpretation Completed 02/18/2008 74704 EKG Tracing & Interpretation Completed 08/27/2007 45094 Holter Monitor Completed 08/27/2007 66382 Holter Monitor Completed 08/27/2007 20713 Holter Monitor Completed 07/15/2007 35086 EKG Tracing & Interpretation Completed 05/24/2007 23901 EKG Tracing & Interpretation Completed 05/24/2007 16000 EKG Tracing & Interpretation Completed 05/18/2007 94871 Color Flow Doppler/Interp & Reprt Completed 05/18/2007 22384 Pulse Wave/Continuous-Interp.RPT Completed 05/18/2007 10258 Pulse Wave/Continuous-Interp.RPT Completed 05/18/2007 03769 Echocardiography, Transesophageal, Real Time W/Image 2D Completed W/W/O M-M 05/18/2007 59828 EKG, Interpretation Only Completed 05/18/2007 89357 EKG, Interpretation Only Completed 05/18/2007 34151 Cardioversion Completed 05/18/2007 50764 Cardioversion Completed 05/13/2007 38826 Holter Monitor Interpretation Completed 05/05/2007 73421 EKG Tracing & Interpretation Completed 05/05/2007 72190 EKG Tracing & Interpretation Completed 10/28/2006 65035 EKG Tracing & Interpretation Completed 09/01/2006 95354 EKG Tracing & Interpretation Completed 09/01/2006 67788 EKG Tracing & Interpretation Completed 08/07/2006 88945 Treadmill Interp/Report Only Completed 08/07/2006 30049 Treadmill Interp/Report Only Completed 08/07/2006 89372 Stress Test Supervsn W/Out I/R Completed 07/29/2006 57210 Color Doppler Completed 07/29/2006 80865 Pulse Doppler & Continuous Wave Completed 07/29/2006 03061 Pulse Doppler & Continuous Wave Completed 07/29/2006 09556 Echocardiogram Completed 07/27/2006 63017 EKG Tracing & Interpretation Completed Encounters Type Date Location Provider CPT E/M Dx Office Visit 12/10/2017 [facility] [place] [address] J44.9 11:30a [facility] [employer] [facility] G47.33 C34.90 R09.02 Office Visit 10/21/2017 10:15a [facility] [place], [address] 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 R91.8 Office Visit 09/07/2017 12:49p [facility], BRIJESH Argueta 50120 J44.1 Hospitalists I48.91 I10 Office Visit 09/06/2017 12:48p [facility], Lora Valera N.P. 89407 J44.1 Hospitalists I48.91 I10 Office Visit 08/31/2017 9:00a [facility] [place] [address] J44.9 Services Of [employer] Engineer G47.33 E66.09 R09.02 Office Visit 07/20/2017 1:30p [facility] [place] [address] J44.9 Services Of [employer] Integration Engineer G47.33 E66.09 R09.02 Office Visit 07/14/2017 4:00p [facility] Qutaybeh S. Magcoral, [address]4522 I48.3 M.D. J44.9 I10 E78.4 Office Visit 06/03/2017 1:40p [facility] Qutaybeh S. Magjesusydlawrence, 36114 J44.9 M.D. I48.91 I10 E78.4 R94.31 R06.02 Office Visit 09/10/2016 4:20p [facility] Qutaybeh S. Magjesusydlawrence, 99933 J44.9 M.D. I48.91 I10 E78.4 R94.31 Office Visit 01/04/2016 8:20a [facility] [address] J44.9 M.D. I48.91 I48.2 I10 E78.4 Office Visit 12/13/2015 10:15a [facility] [place] [address] J44.9 [facility] G47.33 E66.09 Z12.2 Office Visit 11/06/2015 10:00a [facility] S. [facility], [address]455 I48.2 M.D. I10 E78.4 R94.31 R06.02 Office Visit 03/09/2015 8:20a [facility] S. [facility], 46835 427.31 M.D. 401.9 272.4 397.0 Office Visit 01/12/2015 12:22p [facility], Pato Bauman, 66638 427.31 Hospitalists M.D. 575.10 401.9 Office Visit 01/11/2015 12:21p [facility], Pato Bauman, 15709 427.31 Hospitalists M.D. 575.10 574.20 401.9 Office Visit 01/10/2015 12:20p [facility], Pato Bauman, 32484 427.31 Hospitalists M.D. 401.9 Office Visit 01/09/2015 12:20p [facility], Yolette Adame, 75116 575.10 Hospitalists M.D. 574.20 427.31 401.9 Office Visit 01/08/2015 12:19p [facility], Yolette Adame, 55765 577.0 Hospitalists M.D. 574.20 427.31 401.9 Office Visit 01/07/2015 12:19p [facility], Yolette Adame, 92967 577.0 Hospitalists M.D. 574.20 427.31 401.9 Office Visit 01/06/2015 12:19p [facility], Yolette Adame, 87460 577.0 Hospitalists M.D. 574.20 427.31 401.9 Office Visit 01/05/2015 12:18p [facility], Yolette Adame, 64084 577.0 Hospitalists M.DWillam 574.20 427.31 401.9 Office Visit 01/04/2015 12:18p [facility], Yolette Adame, 97834 577.0 Hospitalists M.D. 574.20 272.4 401.9 Office Visit 01/03/2015 12:14p [facility] [place], [address] 577.0 Assoc, Hospitalists M.DWillam 574.20 272.4 401.9 Office Visit 06/29/2014 10:00a [facility] Qutaybeh S. Maghaydah, 17432 427.31 M.D. 401.9 397.0 414.01 272.4 Office Visit 04/06/2014 9:00a [facility] BRIJESH Carrasco 24005NMB 427.31 786.05 401.9 397.0 493.20 Office Visit 03/16/2014 11:30a [facility] BRIJESH Carrasco 10324 786.05 427.31 401.9 397.0 Office Visit 01/26/2014 11:00a [facility] Qutaybeh S. Maghaydah, 70255 414.01 M.D. 401.1 786.05 272.4 794.31 427.31 Office Visit 05/03/2013 10:00a [facility] Qutaybeh S. Maghaydah, 04799 414.01 M.D. 401.1 786.05 272.4 794.31 Office Visit 11/18/2012 2:00p [facility] M.D. 01714 716.91 C.M.A. 726.19 Office Visit 11/01/2012 3:15p [facility] M.D. 67081 722.93 C.M.A. Office Visit 09/07/2012 2:30p [facility] QUIN Espinoza 64860 719.45 C.M.A. Office Visit 05/03/2012 2:45p [facility] M.D. 25727 716.95 C.M.A. Office Visit 03/31/2012 2:40p [facility] Qutaybjn S. 64782 414.01 Jose Alfredo Hanna 401.1 427.32 786.05 272.4 Office Visit 03/26/2012 7:51a [facility] Qutaybeh S. Mckayydlawrence, 60353 794.31 M.D. 414.01 401.1 427.31 427.32 786.05 Office Visit 03/23/2012 4:00p [facility] Qutaybeh S. Mckayydah, 30789 786.05 M.D. 401.1 424.0 492.8 Office Visit 03/16/2012 9:30a [facility] Qutaybeh S. Mckayydah, 33472 794.31 M.D. 786.05 401.1 v72.81 Office Visit 03/01/2012 3:30p [facility] Qutaybeh S. Mckayydlawrence, 12012 427.31 M.D. 794.31 786.05 272.4 424.0 Office Visit 10/21/2011 3:30p [facility] Andrzejtaybjn S. Mckayydah, 99956 427.31 M.D. 794.31 786.05 272.4 424.0 397.0 492.8 Office Visit 04/18/2011 2:20p [facility] Qutaybjn S. Mckayydah, 04552 401.9 M.D. 427.31 794.31 786.05 272.4 424.0 397.0 Office Visit 09/25/2010 10:00a [facility] Qutaybeh S. Mckayydah, 43158 424.0 M.D. 401.1 427.31 272.4 Office Visit 09/16/2010 3:00p [facility] Qutaybeh S. Mckayydah, 81462 424.0 M.D. 401.1 272.4 Office Visit 02/12/2010 3:00p [facility] Qutaybeh S. Mckayydah, 14013 424.0 M.D. 401.1 427.31 272.4 786.05 424.2 Office Visit 08/14/2009 3:20p [facility] Qutaybeh S. Mckayydah, 99845 424.0 M.D. 401.1 427.31 272.4 Office Visit 03/08/2009 3:40p [facility] Qutaybeh S. Maghaydah, 49394 424.0 M.D. 401.1 427.31 272.4 Office Visit 09/21/2008 3:40p [facility] Qutaybeh S. Maghaydah, 06556 427.31 M.D. 786.05 424.0 401.1 272.4 424.2 Office Visit 06/22/2008 8:20a [facility] Qutaybeh S. Maghaydah, 99810 786.05 M.D. 427.31 424.0 401.1 272.4 794.31 424.2 Office Visit 05/26/2008 11:10a [facility] Qutaybeh S. Maghaydah, 17471 427.31 M.D. 272.4 427.69 401.1 Office Visit 02/18/2008 2:20p [facility] Qutaybeh S. Maghaydah, 02773 427.31 M.D. 272.4 424.0 401.1 Office Visit 11/02/2007 3:00p [facility] Moses, 46480 846.0 Of Avionics Integration Engineer M.D. Office Visit 07/15/2007 3:20p [facility] Qutaybeh S. 86209 427.31 Maghaydlawrence, M.DWillam 272.4 424.0 401.0 Office Visit 05/24/2007 2:10p [facility] Qutaybeh S. Maghaydah, 17769 427.31 M.D. 401.1 794.31 272.4 424.0 424.2 491.0 Office Visit 05/18/2007 9:00a [facility] Qutaybeh S. Maghaydah, 82082 427.31 M.D. 401.1 794.31 272.4 Office Visit 05/05/2007 3:20p [facility] Qutaybeh S. Maghaydah, 63977 427.31 M.D. 424.0 272.4 401.1 Office Visit 10/28/2006 4:00p [facility] Qutaybeh S. Maghaydah, 76511 401.0 M.D. 427.31 424.0 424.2 Office Visit 10/05/2006 3:00p [facility], 13090 401.1 M.D. 427.31 491.0 Office Visit 09/01/2006 3:00p [facility]. [facility], 91758 401.0 M.D. 427.31 424.2 416.8 Office Visit 07/27/2006 2:20p [facility], 81791 427.32 M.D. 401.0 272.4 491.0 Plan of Care Future Appointment(s):04/22/2018 10:45 am - Melissa Medrano MD at [facility]12/10/2017 - Melissa Medrano MDJ44.9 Chronic obstructive pulmonary disease, unspecifiedFollow up:4 keflxeK08.33 Obstructive sleep apnea (adult) (pediatric)C34.90 Malignant neoplasm of unsp part of unsp bronchus or lungR09.02 Hypoxemia
[2017-12-18] MEDS ORDERED: Albuterol/Ipratropium NEB.SOL* Albuterol 2.5 MG/Ipratropium 0.5 MG 3 ML INH ONE (23:01)
[2017-12-18] MEDS ORDERED: Albuterol/Ipratropium NEB.SOL* Albuterol 2.5 MG/Ipratropium 0.5 MG 3 ML ONE (23:40)
[2017-12-18 23:43] LABS: ABS Basophils 0 10^3/ul (0-0.2); ABS Eosinophils 0 10^3/ul (0-0.6); ABS Lymphocytes 0.6 10^3/ul (1.0-4.8); ABS Monocytes 0.5 10^3/ul (0-0.8); ABS Neutrophils 1.7 10^3/ul (1.5-7.7); ABS Nucleated RBC 0 10^3/ul; Eosinophil % 0 % (0-6); Hematocrit 25 % (42-52); Hemoglobin 8.7 g/dl (14.0-18.0); Lymphocyte % 20.9 % (25-47); Mean Corpuscular HGB Conc 35 g/dl (31-36); Mean Corpuscular Hemoglobin 32 pg (27-31); Mean Corpuscular Volume 92 fL (80-94); Nucleated Red Blood Cells % 0.3; Platelet Count 181 10^3/ul (150-450); Red Cell Distribution Width 19 % (10.5-15); White Blood Count 2.9 10^3/ul (3.5-10.8)
[2017-12-18 23:49] LABS: INR 1.09 (0.77-1.02)
[2017-12-19 00:02] LABS: EGFR Non-African American 59.6 (>60)
[2017-12-19 00:55] LABS: Urine Appearance Clear; Urine Blood Negative (Negative); Urine Color Yellow; Urine Ketones Negative (Negative); Urine Protein Negative (Negative); Urine Urobilinogen Negative (Negative)
[2017-12-19 01:19] VITALS: BP 151/90
[2017-12-19] MEDS ORDERED: Amoxicillin/Clavulanate TAB* 875 MG PO ONE (01:38)
--- NOTE | 2017-12-19 05:27 | ED ---
Carlos Handley Jennifer, scribed for Chica Ward MD on 12/18/17 at 2239 . Altered Mental Status - HPI Summary HPI Summary: The patient is a 77 year old male who presents with confusion that his family wanted to get checked out starting last night. The states the patient has not been thinking straight, is confused, and is speaking randomly (ie. Talking about selling a horse, going to the bookstore). The denies slurred speech , facial drooping. The patient uses oxygen at home due to COPD. The patient additionally complains of green productive cough. He denies chest pain, shortness of breath, abdominal pain. The patient has been going through radiation for lung cancer and had his last treatment one week ago. He was accompanied by his and two daughters. His daughters think his transient confusion is from extra dose of oxycodone he took. Patient is now back to his normal self - History Of Current Complaint Chief Complaint: EDAltMentalStatus Stated Complaint: GEN. ILLNESS Time Seen by Provider: 12/18/17 22:16 Hx Obtained From: Family/Professional Architect - , 2 daughters Onset/Duration: Still Present, Suddenly Timing: Constant Severity Initially: Mild Severity Currently: Mild Character: Confusion Aggravating Factor(s): Nothing Alleviating Factor(s): Nothing - Allergies/Home Medications Allergies/Adverse Reactions: Allergies Allergy/AdvReac Type Severity Reaction Status Date / Time No Known Allergies Allergy Verified 10/27/17 09:01 Home Medications: Home Medications Atorvastatin* [Lipitor*] 10 mg PO DAILY 12/18/17 [History Confirmed 12/18/17] Escitalopram (NF) [Lexapro 20 mg (NF)] 20 mg PO DAILY 12/18/17 [History Confirmed 12/18/17] Flecainide TAB(NF) 75 mg PO BID 12/18/17 [History Confirmed 12/18/17] Glycopyrrolate/Formoterol Fum [Bevespi Aerosphere 9-4.8 Mcg/Act] 2 puff INH BID 12/18/17 [History Confirmed 12/18/17] HYDROcodone/ACETAMIN 5-325 MG* [[place] 5-325 TAB*] 1 - 2 tab PO .Q4-6H PRN [History Confirmed 12/18/17] Ipratropium 0.5MG/2.5ML NEB* [Atrovent 0.5 MG NEB.VA*] 0.5 mg INH BID PRN 12/18 [History Confirmed 12/18/17] Levalbuterol 0.63MG/3ML NEB* [Xopenex 0.63MG/3ML NEB*] 0.63 mg INH Q4HR PRN 06/27 [History Confirmed 12/18/17] Levalbuterol HFA INHALER* [Xopenex Hfa Inhaler*] 2 puff INH QID PRN 12/18/17 [ History Confirmed 12/18/17] Potassium Chlor TAB* [Klor Con ER TAB*] 20 meq PO DAILY 12/18/17 [History Confirmed 12/18/17] Sucralfate SUSP (NF) [Carafate SUSP (NF)] 10 ml PO ACHS 12/18/17 [History Confirmed 12/18/17] Sulfamethox/Trimethoprim DS* [Bactrim DS 800/160 TAB*] 1 tab PO DAILY 12/18/17 [ History Confirmed 12/18/17] predniSONE TAB* [Deltasone TAB*] 10 mg PO DAILY 12/18/17 [History Confirmed 06/27] PMH/Surg Hx/FS Hx/Imm Hx Endocrine/Hematology History: Denies: Hx Diabetes Cardiovascular History: Reports: Hx Atrial Fibrillation, Hx Coronary Artery Disease, Hx Hypercholesterolemia, Hx Hypertension - MED, 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,tricuspid valve with rheumatic disease, Other Cardiovascular Problems/Disorders - a-fib, a-flutter, hyperlipidemia, coronary arteriosclerosis Denies: Hx Congestive Heart Failure, Hx Myocardial Infarction, Hx Pacemaker/ ICD Respiratory History: Reports: Hx Asthma, Hx Chronic Obstructive Pulmonary Disease (COPD), Hx Sleep Apnea, Other Respiratory Problems/Disorders - o2 at 3lpm prn sob GI History: Reports: Hx Gastroesophageal Reflux Disease, Other GI Disorders - pancreatitis History: Reports: Hx Benign Prostatic Hyperplasia, Other Problems/ Disorders - BPH - followed by dr cedillo Denies: Hx Renal Disease Musculoskeletal History: Reports: Hx Arthritis - osteo, Hx Tendonitis - LEFT SHOULDER- HAD CORTIZONE INJ Sensory History: Reports: Hx Cataracts - bilateral, Hx Contacts or Glasses Denies: Hx Hearing Aid Comment Only: Hx Glaucoma - TESTING FOR GLAUCOMA Opthamlomology History: Reports: Hx Cataracts - bilateral, Hx Contacts or Glasses Comment Only: Hx Glaucoma - TESTING FOR GLAUCOMA Neurological History: Denies: Other Neuro Impairments/Disorders Psychiatric History: Reports: Hx Anxiety, Hx Panic Disorder - Cancer History Hx Chemotherapy: No - Surgical History Surgery Procedure, Year, and Place: LEFT H[place] REPL[place] [facility] [place]IAC CATH - 2011. 60'S PYLONIDAL CYST REMOVED. IMPLANT PENILE AT [facility] [place]- MRI SAFE UP TO 3T PER SAFTEY MANUAL 2012 (AMBICOR) REPORT IS ATTACHED TO MRI 12-19-2011;. bilateral cataract extraction with IOL 2012 [facility] [place]. [place]ole[place] [facility] [place] 2017 Hx Anesthesia Reactions: No Infectious Disease History: No Infectious Disease History: Denies: Traveled Outside the [place] in Last 30 Days - Family History Known Family History: Negative: Renal Disease - Social History Alcohol Use: Weekly Alcohol Amount: 2-3 beers on weekend Hx Substance Use: No Substance Use Type: Reports: None Hx Tobacco Use: Yes Smoking Status (MU): Former Smoker Amount Used/How Often: 1.5ppd for 40 years Review of Systems ENT: Other - pain when swallowing Negative: Chest Pain Positive: Cough - green. Negative: Shortness Of Breath Negative: Abdominal Pain Neurological: Negative - Facial droop, Other - Confusion Negative: Slurred Speech All Other Systems Reviewed And Are Negative: Yes Physical Exam - Summary Physical Exam Summary: GENERAL: ~Patient is a well developed and nourished M who is lying comfortable in the stretcher. ~Patient is not in any acute respiratory distress. HEAD AND FACE: Normocephalic EYES: PERRLA, EOMI x 2. EARS: Hearing grossly intact. MOUTH: Oropharynx within normal limits. NECK: Supple, trachea is midline, no adenopathy, no JVD, no carotid bruit. CHEST: Symmetric, no tenderness at palpation LUNGS: Wheezing anteriorly. No crackles. CVS: Regular rate and rhythm, S1 and S2 present, no murmurs or gallops appreciated. ABDOMEN: Soft, non-tender. Bowel sounds are normal. No abdominal abnormal pulsations. EXTREMITIES: Full ROM in all major joints, no edema, no cyanosis or clubbing. NEURO: Alert and oriented x 3. No acute neurological deficits. Speech is normal and follows commands. SKIN: Dry and warm Triage Information Reviewed: Yes Vital Signs On Initial Exam: Initial Vitals Temp Pulse Resp BP Pulse Ox 97.3 F 90 14 156/83 98 12/18/17 22:03 12/18/17 22:03 12/18/17 22:03 12/18/17 22:03 12/18/17 22:03 Vital Signs Reviewed: Yes Diagnostics - Vital Signs Vital Signs Temp Pulse Resp BP Pulse Ox 12/18/17 22:03 97.3 F 90 14 156/83 98 - Laboratory Lab Results: Lab Results 12/18/17 12/18/17 12/18/17 Range/Units 23:09 23:09 23:09 WBC 2.9 L (3.5-10.8) 10^3/ul RBC 2.70 L (4.0-5.4) 10^6/ul Hgb 8.7 L (14.0-18.0) g/dl Hct 25 L (42-52) % MCV 92 (80-94) fL MCH 32 H (27-31) pg MCHC 35 (31-36) g/dl RDW 19 H (10.5-15) % Plt Count 181 (150-450) 10^3/ul MPV 6.0 L (7.4-10.4) um3 Neut % (Auto) 59.9 (38-83) % Lymph % (Auto) 20.9 L (25-47) % [place] % (Auto) 19.0 H (0-7) % Eos % (Auto) 0 (0-6) % Baso % (Auto) 0.2 (0-2) % Absolute Neuts (auto) 1.7 (1.5-7.7) 10^3/ul Absolute Lymphs (auto) 0.6 L (1.0-4.8) 10^3/ul Absolute Monos (auto) 0.5 (0-0.8) 10^3/ul Absolute Eos (auto) 0 (0-0.6) 10^3/ul Absolute Basos (auto) 0 (0-0.2) 10^3/ul Absolute Nucleated RBC 0 10^3/ul Nucleated RBC % 0.3 INR (Anticoag Therapy) (0.77-1.02) ABG pH (7.35-7.45) ABG pCO2 (35-45) mmHg ABG pO2 (80-100) mmHg ABG HCO3 (19-31) mmol/L ABG O2 Saturation (95-98) % ABG Base Excess (-2.0-2.0) Sodium (139-145) mmol/L Potassium (3.5-5.0) mmol/L Chloride (101-111) mmol/L Carbon Dioxide (22-32) mmol/L Anion Gap (2-11) mmol/L BUN (6-24) mg/dL Creatinine (0.67-1.17) mg/dL Est GFR ( Amer) (>60) Est GFR (Non-Af Amer) (>60) BUN/Creatinine Ratio (8-20) Glucose (70-100) mg/dL Lactic Acid 1.5 (0.5-2.0) mmol/L Calcium (8.6-10.3) mg/dL Magnesium (1.9-2.7) mg/dL Total Bilirubin (0.2-1.0) mg/dL AST (13-39) U/L ALT (7-52) U/L Alkaline Phosphatase (34-104) U/L Ammonia 35 (16-53) mcmol/L Troponin I (<0.04) ng/mL Total Protein (6.4-8.9) g/dL Albumin (3.2-5.2) g/dL Globulin (2-4) g/dL Albumin/Globulin Ratio (1-3) TSH (0.34-5.60) mcIU/mL Urine Color Urine Appearance Urine pH (5-9) Ur Specific [place] (1.010-1.030) Urine Protein (Negative) Urine Ketones (Negative) Urine Blood (Negative) Urine Nitrate (Negative) Urine Bilirubin (Negative) Urine Urobilinogen (Negative) Ur Leukocyte Esterase (Negative) Urine Glucose (Negative) Urine Ascorbic Acid (Negative) Salicylates (<30) mg/dL Acetaminophen mcg/mL 12/18/17 12/18/17 12/19/17 Range/Units 23:10 23:10 00:00 WBC (3.5-10.8) 10^3/ul RBC (4.0-5.4) 10^6/ul Hgb (14.0-18.0) g/dl Hct (42-52) % MCV (80-94) fL MCH (27-31) pg MCHC (31-36) g/dl RDW (10.5-15) % Plt Count (150-450) 10^3/ul MPV (7.4-10.4) um3 Neut % (Auto) (38-83) % Lymph % (Auto) (25-47) % [place] % (Auto) (0-7) % Eos % (Auto) (0-6) % Baso % (Auto) (0-2) % Absolute Neuts (auto) (1.5-7.7) 10^3/ul Absolute Lymphs (auto) (1.0-4.8) 10^3/ul Absolute Monos (auto) (0-0.8) 10^3/ul Absolute Eos (auto) (0-0.6) 10^3/ul Absolute Basos (auto) (0-0.2) 10^3/ul Absolute Nucleated RBC 10^3/ul Nucleated RBC % INR (Anticoag Therapy) 1.09 H (0.77-1.02) ABG pH 7.48 H (7.35-7.45) ABG pCO2 43 (35-45) mmHg ABG pO2 101 H (80-100) mmHg ABG HCO3 30.9 (19-31) mmol/L ABG O2 Saturation 96.1 (95-98) % ABG Base Excess 7.7 H (-2.0-2.0) Sodium 134 L (139-145) mmol/L Potassium 3.5 (3.5-5.0) mmol/L Chloride 96 L (101-111) mmol/L Carbon Dioxide 30 (22-32) mmol/L Anion Gap 8 (2-11) mmol/L BUN 21 (6-24) mg/dL Creatinine 1.19 H (0.67-1.17) mg/dL Est GFR ( Amer) 76.6 (>60) Est GFR (Non-Af Amer) 59.6 (>60) BUN/Creatinine Ratio 17.6 (8-20) Glucose 105 H (70-100) mg/dL Lactic Acid (0.5-2.0) mmol/L Calcium 8.5 L (8.6-10.3) mg/dL Magnesium 2.2 (1.9-2.7) mg/dL Total Bilirubin 0.50 (0.2-1.0) mg/dL AST 15 (13-39) U/L ALT 13 (7-52) U/L Alkaline Phosphatase 57 (34-104) U/L Ammonia (16-53) mcmol/L Troponin I 0.01 (<0.04) ng/mL Total Protein 5.9 L (6.4-8.9) g/dL Albumin 3.7 (3.2-5.2) g/dL Globulin 2.2 (2-4) g/dL Albumin/Globulin Ratio 1.7 (1-3) TSH 0.98 (0.34-5.60) mcIU/mL Urine Color Urine Appearance Urine pH (5-9) Ur Specific [place] (1.010-1.030) Urine Protein (Negative) Urine Ketones (Negative) Urine Blood (Negative) Urine Nitrate (Negative) Urine Bilirubin (Negative) Urine Urobilinogen (Negative) Ur Leukocyte Esterase (Negative) Urine Glucose (Negative) Urine Ascorbic Acid (Negative) Salicylates < 2.50 (<30) mg/dL Acetaminophen < 15 mcg/mL 12/19/17 Range/Units 00:40 WBC (3.5-10.8) 10^3/ul RBC (4.0-5.4) 10^6/ul Hgb (14.0-18.0) g/dl Hct (42-52) % MCV (80-94) fL MCH (27-31) pg MCHC (31-36) g/dl RDW (10.5-15) % Plt Count (150-450) 10^3/ul MPV (7.4-10.4) um3 Neut % (Auto) (38-83) % Lymph % (Auto) (25-47) % [place] % (Auto) (0-7) % Eos % (Auto) (0-6) % Baso % (Auto) (0-2) % Absolute Neuts (auto) (1.5-7.7) 10^3/ul Absolute Lymphs (auto) (1.0-4.8) 10^3/ul Absolute Monos (auto) (0-0.8) 10^3/ul Absolute Eos (auto) (0-0.6) 10^3/ul Absolute Basos (auto) (0-0.2) 10^3/ul Absolute Nucleated RBC 10^3/ul Nucleated RBC % INR (Anticoag Therapy) (0.77-1.02) ABG pH (7.35-7.45) ABG pCO2 (35-45) mmHg ABG pO2 (80-100) mmHg ABG HCO3 (19-31) mmol/L ABG O2 Saturation (95-98) % ABG Base Excess (-2.0-2.0) Sodium (139-145) mmol/L Potassium (3.5-5.0) mmol/L Chloride (101-111) mmol/L Carbon Dioxide (22-32) mmol/L Anion Gap (2-11) mmol/L BUN (6-24) mg/dL Creatinine (0.67-1.17) mg/dL Est GFR ( Amer) (>60) Est GFR (Non-Af Amer) (>60) BUN/Creatinine Ratio (8-20) Glucose (70-100) mg/dL Lactic Acid (0.5-2.0) mmol/L Calcium (8.6-10.3) mg/dL Magnesium (1.9-2.7) mg/dL Total Bilirubin (0.2-1.0) mg/dL AST (13-39) U/L ALT (7-52) U/L Alkaline Phosphatase (34-104) U/L Ammonia (16-53) mcmol/L Troponin I (<0.04) ng/mL Total Protein (6.4-8.9) g/dL Albumin (3.2-5.2) g/dL Globulin (2-4) g/dL Albumin/Globulin Ratio (1-3) TSH (0.34-5.60) mcIU/mL Urine Color Yellow Urine Appearance Clear Urine pH 5.0 (5-9) Ur Specific [place] 1.020 (1.010-1.030) Urine Protein Negative (Negative) Urine Ketones Negative (Negative) Urine Blood Negative (Negative) Urine Nitrate Negative (Negative) Urine Bilirubin Negative (Negative) Urine Urobilinogen Negative (Negative) Ur Leukocyte Esterase Negative (Negative) Urine Glucose Negative (Negative) Urine Ascorbic Acid * A (Negative) Salicylates (<30) mg/dL Acetaminophen mcg/mL Result Diagrams: 12/18/17 23:09 12/18/17 23:10 Lab Statement: Any lab studies that have been ordered have been reviewed, and results considered in the medical decision making process. - Radiology CXR Xray Interpretation: Positive (See Comments) - Obscured heart border on the right probably PNA though similar to old CXR Radiology Interpretation Completed By: ED Physician - CT CT Brain CT Interpretation: No Acute Changes - No acute findings. Dr. Ward has reviewed this report. CT Interpretation Completed By: Radiologist - EKG 23:36 Cardiac Rate: NL EKG Rhythm: Sinus Rhythm - 75 BPM EKG Interpretation: Borderline prolonged QT Altered Mental Statu Course/Dx - Course Course Of Treatment: The patient is a 77 y/o M who was brought in by family due to concern for intermittent confusion that is completely resolved. Daughter convinced he took too much oxycodone. His workup is remarkable for leukopenia with white count of 2.9 L. Hbg 8.7 L, which is similar compared to previous visits because the patient is currently on chemotherapy. Urine doesnt show any signs of infection. CT scan unremarkable. ABG shows normal PCO2. I discussed the results with pt and his family in great detail. I offered admission to hospital for observation. However, pt refused and states he wants to go home. Pt will be sent home on augmentin for COPD exacerbation given more coughing than normal. Augmentin was chosen over the other antibiotics because of QT mildly prolonged. Pt is otherwise hemodynamically stable and is awake, alert, and oriented. Safe for discharge. Follow up with his doctor. Strict return precautions given. Patient and family agree. Family is comfortable taking patient home - Diagnoses Provider Diagnoses: COPD exacerbation Discharge - Sign-Out/Discharge Documenting (check all that apply): Discharge/Admit/Transfer - Discharge Plan Condition: Stable Disposition: HOME Prescriptions: Amoxicillin/Clavulanate TAB* [Augmentin TAB 875*] 875 mg PO BID #20 tab Patient Education Materials: COPD (Chronic Obstructive Pulmonary Disease) (ED) Referrals: Aj Miller MD [Primary Care Provider] - Additional Instructions: Follow up with your primary care physician in three days. Return to the emergency department for any new or worsening symptoms. - Billing Disposition and Condition Condition: STABLE Disposition: HOME The documentation as recorded by the Carlos gabriel Jennifer accurately reflects the service I personally performed and the decisions made by me, Chica Ward MD.
--- NOTE | 2017-12-19 08:18 | RAD ---
Indication: Confusion, history of lung carcinoma. CT of the brain was performed without IV contrast. Ventricular structures are midline. No midline shift is noted. The extraction spaces are unremarkable. There is no evidence of intracranial mass or hemorrhage. No other high or low density lesions are identified. Mastoid air cells and paranasal sinuses are otherwise unremarkable. IMPRESSION: There is no evidence of intracranial mass or hemorrhage.
--- NOTE | 2017-12-19 08:19 | RAD ---
Indication: Shortness of breath. Single frontal view of the chest performed at 2327 hours was reviewed. Comparison is made with previous exam dated October 27, 2017. No mediastinal shift is noted. Heart is of normal size and configuration. Lung bolden appear clear. Prominent epicardial fat pad is noted. IMPRESSION: NO ACTIVE CARDIOPULMONARY DISEASE IS NOTED.
== END 2017-12-19 01:55 | disposition home or self-care (01) ==
LOC: ED 21:40
DX: J44.1 Chronic obstructive pulmonary disease with (acute) exacerbation (principal); R05 Cough; Z87.891 Personal history of nicotine dependence
CPT/HCPCS: 36415; 70450; 71045; 80053; 80329; 81003; 82140; 82803; 83605; 83735; 84443; 84484; 85025; 85610; 87040; 93005; 99284; A9270-GY; G0480

== ENCOUNTER 2018-09-15 10:50 | Day surgery (SDC) | payer MEDICARE, BC ==
[~2018-09-15 10:50] MED LIST changes: -Buffered Lidocaine 0.9% SYRIN* 5 ML/SYR SYRINGE INTRADERM ONE; +Buffered Lidocaine 1% SYRIN* 1 ML/SYRINGE INTRADERM ONE; -Dexamethasone IV* 4 MG/ML 1 ML (4 MG) IV SLOW PU ONE; +Lactated Ringers 1000 ML Bag* 1,000 ML IV SCH; -Sodium Citrate/Citric Acid* 15 ML UDC PO ONE
[2018-09-15] MEDS ORDERED: Levalbuterol 1.25MG/0.5ML NEB ONE (12:53)
[2018-09-15] MEDS ORDERED: fentaNYL* 50 MCG/ML 2 ML VIAL (100 MCG VIAL) ONE (13:01)
[2018-09-15] MEDS ORDERED: Midazolam* 1 MG/ML 2 ML VIAL (2 MG) ONE (13:01)
[2018-09-15] MEDS ORDERED: Propofol* 10 MG/ML 20 ML BTL ONE (13:52)
[2018-09-15] MEDS ORDERED: Ondansetron INJ* 2 MG/ML VIAL ONE (13:52)
[2018-09-15] MEDS ORDERED: Dexamethasone IV* 4 MG/ML 1 ML (4 MG) ONE (13:52)
[2018-09-15] MEDS ORDERED: Lidocaine 2% PF * 5 ML VIAL ONE (13:52)
[2018-09-15] MEDS ORDERED: Succinylcholine* 20 MG/ML 10 ML VIAL ONE (13:52)
[2018-09-15] MEDS ORDERED: Levalbuterol 0.63MG/3ML NEB* UNIT OF USE INH PRN (14:32)
[2018-09-15] MEDS ORDERED: Naloxone* 0.4 MG/ML 1 ML VIAL IV PRN (14:32)
[2018-09-15] MEDS ORDERED: hydrALAZINE IV* 20 MG/ML VIAL ONE (14:36)
[2018-09-15] MEDS ORDERED: Levalbuterol 0.63MG/3ML NEB* UNIT OF USE INH ONE (14:40)
[2018-09-15] MEDS ORDERED: Acetaminophen TAB* 325 MG PO ONE (14:51)
[2018-09-15] MEDS ORDERED: Acetaminophen TAB* 325 MG ONE (14:51)
[2018-09-15 15:33] VITALS: BP 158/72
--- NOTE | 2018-09-15 19:03 | PRO ---
BRONCHOSCOPY REPORT: DATE OF PROCEDURE: - [facility] PROCEDURE PERFORMED: Bronchoscopy with endobronchial ultrasound-guided fine needle aspiration from right hilar mass. PREPROCEDURAL DIAGNOSIS: History of lung cancer with possible recurrence. ANESTHESIA: General anesthesia. ANESTHESIOLOGIST: Dr. Gonzalez. DESCRIPTION OF PROCEDURE: Informed consent was obtained from the patient prior to the procedure after all the risks and benefits were thoroughly explained. Appropriate time-out was performed and agreed on by attending staff. Flexible Olympus bronchoscope was inserted through ET tube for airway inspection. The ET tube was found to be 2 cm above the level of the mike. Copious amounts of mucus was coming out of the bronchial tubes. Mucus is frothy and thin. Left bronchial tree was then inspected. No endobronchial lesions were noted. Thick secretions and bronchomalacia was seen on the left side. Right bronchial tree was then inspected. The patient noted to have significant narrowing of intermediate bronchus and right upper lobe takeoff and right lower lobe bronchus. There was also significant narrowing of right middle lobe bronchus. No endobronchial lesions were noted. Bronchoscope was then withdrawn and EBUS bronchoscope was inserted. Right hilar area was scanned and was accessed with 8 passes. Rapid onsite evaluation revealed a few atypical cells. Rest of the specimen was placed in CytoLyt. The patient tolerated the procedure well. The patient extubated and seen in Recovery in optimal condition. [id number]/[facility] #: [id number] MTDD
== END 2018-09-15 15:42 | disposition home or self-care (01) ==
LOC: OR 10:50
PROVIDERS: ATTEND Internal Medicine
DX: J98.09 Other diseases of bronchus, not elsewhere classified (principal); Z85.118 Personal history of other malignant neoplasm of bronchus and lung; J44.9 Chronic obstructive pulmonary disease, unspecified; J98.4 Other disorders of lung; R09.02 Hypoxemia; G47.33 Obstructive sleep apnea (adult) (pediatric); E66.09 Other obesity due to excess calories; I48.2 Chronic atrial fibrillation; Z79.01 Long term (current) use of anticoagulants; I25.10 Atherosclerotic heart disease of native coronary artery without angina pectoris; I10 Essential (primary) hypertension; Z87.891 Personal history of nicotine dependence
CPT/HCPCS: 88172; 88173; 88177; 88305; A9270-GY; J0330; J0360; J1100; J2250; J2405; J2704; J3010

== ENCOUNTER 2019-02-20 09:19 | Emergency (ER) | payer MEDICARE, BC ==
--- NOTE | 2019-02-20 09:47 | ED ---
Abdominal Pain/Male - HPI Summary HPI Summary: A 79 y/o male who is coming from [facility] presents to [facility] with a chief complaint of LUQ abdominal pain since yesterday morning, worsening this morning. He reports nausea without vomiting. He rates his pain as a 9/10 in severity. He wears O2 for COPD. He denies any fevers or chills but reports some SOB. He takes portable breathing treatments. He also has Stage 3 lung cancer and a Hx of Atrial fibrillation. He is on blood thinners. - History of Current Complaint Chief Complaint: EDAbdPain Stated Complaint: "ABDOMINAL PAIN/NAUSEA PER PT COMING FROM [facility]" Time Seen by Provider: 02/20/19 09:40 Hx Obtained From: Patient Onset/Duration: Sudden Onset, Lasting Days, Still Present Timing: Constant, Lasting Days Severity Initially: Moderate Severity Currently: Severe Pain Intensity: 9 Pain Scale Used: 0-10 Numeric Location: Discrete At: LUQ Radiates: No Character: Other: - unable to describe Aggravating Factor(s): Nothing Alleviating Factor(s): Nothing Associated Signs And Symptoms: Positive: Nausea. 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, Other Cardiovascular Problems/Disorders - HX OF ATRIAL FIB, A FLUTTER Denies: Hx Congestive Heart Failure, Hx Myocardial Infarction, Hx Pacemaker/ ICD Respiratory History: Reports: Hx Asthma, Hx Chronic Obstructive Pulmonary Disease (COPD), Hx Sleep Apnea - CPAP, Other Respiratory Problems/Disorders - O2 3LPM DAYTIME, 4LMP AT BEDTIME GI History: Reports: Hx Gastroesophageal Reflux Disease, Other GI Disorders - pancreatitis History: Reports: Hx Benign Prostatic Hyperplasia, Other Problems/ Disorders - BPH - followed by dr cedillo Denies: Hx Renal Disease Musculoskeletal History: Reports: Hx Arthritis - OSTEO, Hx Tendonitis - LEFT SHOULDER- HAD CORTISONE INJ WITH RELIEF Sensory History: Reports: Hx Cataracts - bilateral, Hx Contacts or Glasses - GLASSES Denies: Hx Hearing Aid Comment Only: Hx Glaucoma - TESTING FOR GLAUCOMA Opthamlomology History: Reports: Hx Cataracts - bilateral, Hx Contacts or Glasses - GLASSES Comment Only: Hx Glaucoma - TESTING FOR GLAUCOMA Neurological History: Denies: Other Neuro Impairments/Disorders Psychiatric History: Reports: Hx Anxiety, Hx Panic Disorder - Cancer History Cancer Type, Location and Year: lung, stage 3 Hx Chemotherapy: Yes - 8 CHEMO 01/18/18, 30 RADIATION 12/11/2017 - Surgical History Surgery Procedure, Year, and Place: LEFT HIP REPLACEMENT 2011 [facility] [place]. [place] [facility] [place] 60'[place] PYLONIDAL CYST REMOVED. IM[place] [facility] [place] SAFE UP TO 3T PER SAFTEY MANUAL 2011 (AMBICOR) REPORT IS ATTACHED TO MRI 2011;. bilateral cataract extraction with IOL 2012 [facility] [place]. cholecystectomy 2014 - [facility] [place]. lung biopsy 2018 Hx Anesthesia Reactions: No Infectious Disease History: No Infectious Disease History: Denies: Traveled Outside the [place] in Last 30 Days - Family History Known Family History: Negative: Renal Disease - Social History Alcohol Use: Weekly Alcohol Amount: 2-3 beers on weekend Hx Substance Use: No Substance Use Type: Reports: None Hx Tobacco Use: Yes Smoking Status (MU): Former Smoker Amount Used/How Often: 1.5 ppd for 40 years Length of Time of Smoking/Using Tobacco: 40 YRS Have You Smoked in the Last Year: No Review of Systems Negative: Fever, Chills Positive: Shortness Of Breath Positive: Abdominal Pain, Nausea. Negative: Vomiting All Other Systems Reviewed And Are Negative: Yes Physical Exam - Summary Physical Exam Summary: VITAL SIGNS: Reviewed. GENERAL: Patient is a well-developed and nourished male who is lying comfortable in the stretcher. Patient is not in any acute respiratory distress. HEAD AND FACE: Normocephalic and atraumatic. EYES: PERRLA, EOMI x 2, No injected conjunctiva. EARS: Hearing grossly intact. Ear canals and tympanic membranes are WNL. MOUTH: Oropharynx within normal limits. NECK: Supple, trachea is midline, no adenopathy, no JVD. CHEST: Symmetric, no tenderness at palpation. LUNGS: diffuse wheezing, crackles in both bases of lung CVS: RRR, S1 and S2 present, no murmurs or gallops appreciated. ABDOMEN: Soft, left costovertebral angle tenderness. No signs of distention. Positive bowel sounds. No rebound, no guarding, and no masses palpated. No abdominal bruit or pulsations. EXTREMITIES: FROM in all major joints, no edema, no cyanosis or clubbing. NEURO: Alert and oriented x 3. No acute neurological deficits. Speech is normal. SKIN: Dry and warm. Triage Information Reviewed: Yes Vital Signs On Initial Exam: Initial Vitals Temp Pulse Resp BP Pulse Ox 97.8 F 82 18 153/81 91 02/20/19 09:24 02/20/19 09:24 02/20/19 09:24 02/20/19 09:24 02/20/19 09:24 Vital Signs Reviewed: Yes Diagnostics - Vital Signs Vital Signs Temp Pulse Resp BP Pulse Ox 02/20/19 09:24 97.8 F 82 18 153/81 91 - Laboratory Result Diagrams: 02/20/19 10:11 02/20/19 10:11 Lab Statement: Any lab studies that have been ordered have been reviewed, and results considered in the medical decision making process. - Radiology abdomen x-ray Radiology Interpretation Completed By: Radiologist Summary of Radiographic Findings: NONOBSTRUCTIVE BOWEL GAS PATTERN. LARGE AMOUNT OF STOOL THROUGHOUT THE COLON. ED physician has reviewed this imaging report. CXR Radiology Interpretation Completed By: Radiologist Summary of Radiographic Findings: STABLE RIGHT PERIHILAR FIBROTIC CHANGES. ED physician has reviewed this imaging report. - CT abdomen/pelvis CT Interpretation Completed By: Radiologist Summary of CT Findings: 1. NO HYDRONEPHROSIS OR NEPHROLITHIASIS. 2. DIVERTICULOSIS. 3. ATHEROSCLEROSIS. 4. HIATAL HERNIA. ED physician has reviewed this imaging report. - EKG 10:15 Cardiac Rate: NL - 78 bpm EKG Rhythm: Sinus Rhythm Summary of EKG Findings: NSR at 78bpm without any ST elevations similar to previous on 12/18/17 Abdominal Pain Male Course/Dx - Course Assessment/Plan: A 79 y/o male who is coming from [facility] presents to [facility] with a chief complaint of LUQ abdominal pain since yesterday morning, worsening this morning. He reports nausea without vomiting. He rates his pain as a 9/10 in severity. He wears O2 for COPD. He denies any fevers or chills but reports some SOB. He takes portable breathing treatments. He also has Stage 3 lung cancer and a Hx of Atrial fibrillation. He is on blood thinners. Blood work without any significant abnormality except for hemoglobin 12.6, hematocrit 38, glucose is 106, CRP is 12, BNP 353 and lipase is 10. Abdomen x-ray impression: Non-obstructive bowel gas pattern. Large amount of stool throughout the colon. Therefore the patient was given magnesium citrate and lactulose. Abdominal x- ray impression: No hydronephrosis or nephrolithiasis. Diverticulosis. In the ED course the patient was given morphine and Compazine. The patient has some wheezing therefore the patient was given Solu-Medrol and DuoNeb. And a chest x- ray impression: Stable right peripheral fibrotic changes. In the ED course initially the patient was given Morphine for the pain and the symptoms improved temporarily. Then the patient reported more pain therefore the patient was given another dose of 1 dose of morphine. At this time, the abdominal pelvic CT doesnt show any acute pathology therefore I believe that the symptoms are secondary to constipation. Therefore the patient will be given a prescription for MiraLAX and discharged home with follow-up with PCP. Patient is hemodynamically stable alert and oriented 3. - Diagnoses Provider Diagnoses: Right sided abdominal pain, COPD (chronic obstructive pulmonary disease), Constipation Discharge - Sign-Out/Discharge Documenting (check all that apply): Patient Departure - DC Patient Received Moderate/Deep Sedation with Procedure: No - Discharge Plan Condition: Stable Disposition: HOME Patient Education Materials: Constipation (DC), COPD (Chronic Obstructive Pulmonary Disease) (ED), Acute Abdominal Pain (DC) Referrals: Aj Miller MD [Primary Care Provider] - (2-3 days) Additional Instructions: FOLLOW UP WITH YOUR PRIMARY CARE PROVIDER WITHIN 2-3 DAYS. RETURN TO THE ED FOR ANY WORSENING OR NEW SYMPTOMS. - Billing Disposition and Condition Condition: STABLE Disposition: Home - Attestation Statements Document Initiated by Scribe: Yes Documenting Scribe: Kalia Flynn Provider For Whom Lucio is Documenting (Include Credential): Low Mendez MD Scribe Attestation: Kalia Handley, scribed for Low Mendez MD on 02/21/19 at 2020. Scribe Documentation Reviewed: Yes Provider Attestation: The documentation as recorded by the Kalia gabriel accurately reflects the service I personally performed and the decisions made by me, Low Mendez MD Status of Scribe Document: Viewed
[2019-02-20] MEDS ORDERED: Morphine 4 MG/ML VIAL (1 ml) 4 MG/ML VIAL IV ONE ×2 (09:53→12:18)
[2019-02-20] MEDS ORDERED: PROCHLORPERAZINE INJ 5 MG/ML 2 ML VIAL IV PRN (10:01)
[2019-02-20] MEDS ORDERED: PROCHLORPERAZINE INJ 5 MG/ML 2 ML VIAL ONE (10:06)
[2019-02-20 10:34] LABS: ABS Eosinophils 0.2 10^3/ul (0-0.6); ABS Lymphocytes 0.8 10^3/ul (1.0-4.8); ABS Monocytes 0.8 10^3/ul (0-0.8); ABS Neutrophils 6.4 10^3/ul (1.5-7.7); Eosinophil % 2.1 %; Hematocrit 38 % (42-52); Hemoglobin 12.6 g/dL (14.0-18.0); Lymphocyte % 10.1 %; Mean Corpuscular HGB Conc 33 g/dL (31-36); Mean Corpuscular Hemoglobin 30 pg (27-31); Mean Corpuscular Volume 90 fL (80-94); Mean Platelet Volume 6.3 fL (7.4-10.4); Platelet Count 223 10^3/uL (150-450); Red Blood Count 4.23 10^6 /uL (4.18-5.48); Red Cell Distribution Width 15 % (10-15); White Blood Count 8.2 10^3/uL (3.5-10.8)
[2019-02-20 10:35] LABS: Activated Partial Thrombo Time 30.9 seconds (26.0-38.0); INR 1.03 (0.82-1.09)
[2019-02-20 10:48] LABS: Albumin 3.8 g/dL (3.2-5.2); Albumin/Globulin Ratio 1.5 (1-3); BUN/Creatinine Ratio 20.2 (8-20); C Reactive Protein 12.6 mg/L (<8.01); Calcium 8.9 mg/dL (8.6-10.3); EGFR African American 100.3 (>60); EGFR Non-African American 82.9 (>60); Globulin 2.5 g/dL (2-4); Potassium 3.7 mmol/L (3.5-5.0); Total Bilirubin 0.4 mg/dL (0.2-1.0); Total Protein 6.3 g/dL (6.4-8.9)
[2019-02-20] MEDS ORDERED: methylPREDNISolone 125 MG* 2 ML VIAL IV ONE (11:21)
[2019-02-20] MEDS ORDERED: Levalbuterol 1.25MG/0.5ML NEB INH ONE (11:23)
[2019-02-20] MEDS ORDERED: Polyethylene Glycol 3350* 17 GM PACKET PO PRN (12:31)
[2019-02-20 13:04] VITALS: BP 150/69
== END 2019-02-20 13:03 | disposition home or self-care (01) ==
LOC: ED 09:19
DX: R10.12 Left upper quadrant pain (principal); J44.9 Chronic obstructive pulmonary disease, unspecified; K59.00 Constipation, unspecified; R11.0 Nausea; I25.10 Atherosclerotic heart disease of native coronary artery without angina pectoris; Z95.5 Presence of coronary angioplasty implant and graft; I10 Essential (primary) hypertension; E78.00 Pure hypercholesterolemia, unspecified; G47.30 Sleep apnea, unspecified; K21.9 Gastro-esophageal reflux disease without esophagitis; N40.0 Benign prostatic hyperplasia without lower urinary tract symptoms; Z87.891 Personal history of nicotine dependence; K57.90 Diverticulosis of intestine, part unspecified, without perforation or abscess without bleeding; I70.90 Unspecified atherosclerosis; K44.9 Diaphragmatic hernia without obstruction or gangrene
CPT/HCPCS: 36415; 71045; 74019; 74176; 80053; 83605; 83690; 83880; 85025; 85610; 85730; 86140; 87040; 93005; 96374; 96375; 96376; 99283; A9270-GY; J0780; J1642; J2270; J2930

== ENCOUNTER 2019-06-09 09:30 | Inpatient (IN) | payer MEDICARE, BC ==
--- OUTSIDE RECORDS SUMMARY | 2019-06-09 09:39 | XMS REPORT | Continuity of Care Document ---
:1940 External Reference #:[id number] Author Name Melissa Medrano MD (transmitted by agent of provider Karen Turner) Address [address] [facility] [facility] [place] [id number] Care Team Providers Name Role Phone Aj Miller MD - Family Medicine Care Team Information Slot Operations Director Problems Active Problems Provider Date Atrial fibrillation Jennifer Hanna M.D. Onset: 10/21/2011 Electrocardiogram abnormal Jennifer Hanna M.D. Onset: 10/21/2011 Dyspnea Jennifer Hanna M.D. Onset: 10/21/2011 Hyperlipidemia Jennifer Hanna M.D. Onset: 10/21/2011 Mitral valve disorder Jennifer Hanna M.D. Onset: 10/21/2011 Rheumatic disease of tricuspid valve Jennifer Hanna M.D. Onset: 10/20 Pulmonary emphysema Jennifer Hanna M.D. Onset: 10/21/2011 Benign essential hypertension Jennifer Hanna M.D. Onset: 03/23/2012 Coronary arteriosclerosis Jennifer Hanna M.D. Onset: 03/31/2012 Atrial flutter Jennifer Hanna M.D. Onset: 03/31/2012 Chronic atrial fibrillation Jennifer Hanna M.D. Onset: 11/06/2015 Chronic obstructive lung disease Melissa Medrano MD Onset: 12/13/2015 Obstructive sleep apnea syndrome Melissa Medrano MD Onset: 12/13/2015 Obesity Melissa Medrano MD Onset: 12/13/2015 Encounter for screening for malignant Melissa Medrano MD Onset: 12/13/2015 neoplasm of respiratory organs Social History Type Date Description Comments Sex Unknown Tobacco Use Start: Unknown End: Former Cigarette Smoker Smoking Status Reviewed: 04/12/19 Former Cigarette Smoker ETOH Use consumes 2 beers per week Tobacco Use Start: Unknown End: Patient is a former smoker Unknown Recreational Drug Use Denies Drug Use Exercise Type/Frequency Exercises regularly Walking Allergies, Adverse Reactions, Alerts Description No Known Drug Allergies Medications Active Medications SIG Qnty Indications Ordering Date Provider Jo CD 1 by mouth every 30caps I10 Qutaybeh S. 11/10/2018 240mg day Jose Alfredo Hanna Caps ER 24HR Levalbuterol HCL 1 unit nebulization 60units Melissa Medrano, 09/15/2018 q 12hrs prn 1.25mg/0.5ML Nebulizer Prednisone 1 tab daily 60tabs J44.9 Melissa Medrano, 09/07/2018 10mg MD Tablets Anoro Ellipta Inhale 1 puff By 60units Melissa Medrano, 03/10/2018 Mouth Every Day 62.5-25mcg/Inh Aerosol Ipratropium [place] 1 vial in nebulizer 187.5ml Melissa Medrano, 2017 2 times a day 0.02% Solution Oxygen 3lpm as directed 1units Unknown 12/12/2015 Misc Amoxicillin 4 tablets 1 hour 16caps Ángel Dawson, 07/16/2012 500mg before dental work MWillamDWillam Capsules Lipitor 1 PO qd 30tabs Qutaybeh S. 07/23/2006 10mg Tablets Jose Alfredo Hanna Gabapentin Take 1 Capsule By Unknown 100mg Mouth Three Times Capsules Daily Eliquis 1 by mouth twice a Unknown 5mg Tablets day Flecainide Acetate 1 and 1/2 tablets Qunickybjn S. by mouth twice a Jose Alfredo Hanna 50mg Tablets day Ambien 1 po tablet at 20tabs Unknown 5mg Tablets bedtime prn Hydrocodone/Acetamin one or two po every 20tabs Unknown ophen 4 - 6 hours prn 5-325mg Tablets pain Finasteride 1 tablet po daily Unknown 5mg Tablets Cpap qhs Unknown Omeprazole 1 PO qd 90caps Unknown 20mg Capsules DR Gomes 1 PO qd Unknown 20mg Tablets Medications Administered in Office Medication SIG Qnty Indications Ordering Provider Date Depomedrol 80MG Ángel Dawson M.D. 11/18/2012 Injection Immunizations Description No Information Available Vital Signs Date Vital Result Comment 04/12/2019 1:12pm Height 66 inches 5'6" Weight 186.00 lb Heart Rate 74 /min BP Systolic Sitting 140 mmHg BP Diastolic Sitting 60 mmHg O2 % BldC Oximetry 88 % BMI (Body Mass Index) 30.0 kg/m2 12/01/2018 12:46pm Heart Rate 74 /min LA BP Systolic 128 mmHg ure reg cuff BP Diastolic 68 mmHg ure reg cuff BP Systolic Sitting 132 mmHg ule reg cuff BP Diastolic Sitting 68 mmHg ule reg cuff Results Test Date Facility Test Result H/L Range Note Platelet Count 03/30/2019 [facility] Platelet Count 245 10^3/uL Normal 150-[address] [place] [address] [phone] Mean Platelet Volume 6.1 fL Low 7.4-10.4 Inr/Protime 03/30/2019 [facility] Inr 1.04 Normal 0.82-1.[address] [place] [address] [phone] Laboratory test 03/30/2019 [facility] Partial 27.6 Normal 26.0 -38.[address] [place] [address] PTT [phone] BUN/Creat/GFR 10/25/2018 [facility] Poc Blood 10 mg/dL Normal 8-[address] [place] [address] Nitrogen [phone] Poc Creatinine 0.5 mg/dL Low 0.6-1.3 2 Poc BUN/Creatinine Ratio 20.0 Normal 8-20 Egfr Non- 161.7 >60 Egfr 195.6 >60 3 1 Standard intensity warfarin therapeutic range: 2.0-3.0 High intensity warfarin therapeutic range: 2.5-3.5 2 Blade Changer: [id number] Because ethnic data is not always readily [...] 15-29 5 Kidney failure <15 (or dialysis) Procedures Date Code Description Status 11/10/2018 49133 EKG Tracing & Interpretation Completed Medical Devices Description No Information Available Encounters Type Date Location Provider Dx Diagnosis Office Visit 12/01/2018 [facility] Nurse Visit cc I10 Essential ( primary) 1:00p hypertension Office Visit 11/10/2018 [facility] Margaret Hays, I48.0 Paroxysmal atrial 11:30a N.P. fibrillation E66.09 Other obesity due to excess calories I10 Essential (primary) hypertension Z68.31 Body mass index (BMI) 31.0-31.9, adult Office Visit 11/08/2018 10:45a [facility] Melissa J98.4 Other disorders [facility] Marcela of lung Registered Nurse Renal J44.9 Chronic obstructive pulmonary disease, unspecified R09.02 Hypoxemia G47.33 Obstructive sleep apnea (adult) (pediatric) C34.90 Malignant neoplasm of unsp part of unsp bronchus or lung Assessments Date Code Description Provider 04/12/2019 J44.9 Chronic obstructive pulmonary disease, Melissa Medrano MD unspecified 04/12/2019 G47.33 Obstructive sleep apnea (adult) Melissa Medrano MD (pediatric) 04/12/2019 C34.90 Malignant neoplasm of unspecified part Melissa Medrano MD of unspecified bronchus or lung 04/12/2019 R09.02 Hypoxemia Melissa Medrano MD 12/01/2018 I10 Essential (primary) hypertension Jennifer Hanna M.D. 12/01/2018 I10 Essential (primary) hypertension Nurse Visit cc 11/10/2018 I48.0 Paroxysmal atrial fibrillation Jennifer Hanna M.D. 11/10/2018 I48.0 Paroxysmal atrial fibrillation Margaret Hays, N.P. 11/10/2018 E66.09 Other obesity due to excess calories Margaret Hays, N.P. 11/10/2018 I10 Essential (primary) hypertension Margaret Hays, N.P. 11/10/2018 Z68.31 Body mass index (BMI) 31.0-31.9, adult Margaret Hays, N.P. 11/08/2018 J98.4 Other disorders of lung Melissa Medrano MD 11/08/2018 J44.9 Chronic obstructive pulmonary disease, Melissa Medrano MD unspecified 11/08/2018 R09.02 Hypoxemia Melissa Medrano MD 11/08/2018 G47.33 Obstructive sleep apnea (adult) Melissa Medrano MD (pediatric) 11/08/2018 C34.90 Malignant neoplasm of unspecified part Melissa Medrano MD of unspecified bronch Plan of Treatment Future Appointment(s):10/25/2019 1:45 pm - Melissa Medrano MD at [facility]05/13/2019 4:00 pm - Jennifer Hanna M.D. at [facility]04/12/2019 - Melissa Medrano MDJ44.9 Chronic obstructive pulmonary disease, unspecifiedFollow up:6 lggxgfL90.33 Obstructive sleep apnea ( adult) (pediatric)C34.90 Malignant neoplasm of unspecified part of unspecified bronchus or lungR09.02 Hypoxemia Functional Status Description No Information Available Mental Status Description No Information Available Referrals Description No Information Available
--- OUTSIDE RECORDS SUMMARY | 2019-06-09 09:39 | XMS REPORT | Continuity of Care Document ---
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 11/10/2018 240mg day Jose Alfredo Hanna Caps ER 24HR Levalbuterol HCL Inhale The 180units [facility], 09/15/2018 Contents Of 1 MD 1.25mg/3ML Nebulizer Vial Via Nebulizer Every 12 Hours as Needed Prednisone 1 tab daily 60tabs J44.9 [facility], 09/07/2018 10mg MD Tablets Anoro Ellipta Inhale 1 puff By 60units Melissa [facility], 03/10/2018 Mouth Every Day 62.5-25mcg/Inh Aerosol Ipratropium [place] 1 vial in 187.5ml [facility], 10/23/2017 nebulizer 2 times 0.02% Solution a day Oxygen 3lpm as directed 1units Unknown 12/12/2015 Misc Amoxicillin 4 tablets 1 hour 16caps Ángel Dawson M.D. 07/16/2012 500mg before dental Capsules work Lipitor 1 PO qd 30tabs Jennifer S. 07/23/2006 10mg Tablets Jose Alfredo Hanna Gabapentin Take 1 Capsule By Unknown 100mg Mouth Three Times Capsules Daily Eliquis 1 by mouth twice Unknown 5mg Tablets a day Flecainide Acetate 1 and 1/2 tablets Jennifer S. by mouth twice a Jose Alfredo Hanna 50mg Tablets day Ambien 1 po tablet at 20tabs Unknown 5mg Tablets bedtime prn Hydrocodone/Acetamin one or two po 20tabs Unknown ophen every 4 - 6 hours 5-325mg Tablets prn pain Finasteride 1 tablet po daily Unknown [...] Date Facility Test Result H/L Range Note Lung Cancer [facility] LNGPR TNP () 1 Targeted Gene [address] Interpretation Panel [place], [place] [address] [phone] Platelet [facility] Platelet Count 245 10^3/uL Normal 150-450 Count [address] [place] [address] [phone] Mean Platelet Volume 6.1 fL Low 7.4-10.4 Inr/Protime 03/30/2019 [facility] Inr 1.04 Normal 0.82-1.[address] [place], [place] [id number] [phone] Laboratory test 03/30/2019 [facility] Partial 27.6 Normal 26.0 -38.[address] [place] [address] Time PTT [phone] Lung Panel with Rearrangement Tumor was cancelled on 04/15/2019 at 16:46; Duplicate test request. Test Performed by: [facility] - [address] [address] Exhibit Carpenter: Fabrice David M.D. Ph.D.; CLIA# [id number] 2 Standard intensity warfarin therapeutic range: 2.0-3.0 High intensity warfarin therapeutic range: 2.5-3.5 Procedures Description No Information Available Medical Devices Description No Information Available Encounters Type Date Location Provider Dx Diagnosis Office Visit 04/12/2019 [facility] Melissa Medrano, J44.9 Chronic obstructive 1:45p [facility] pulmonary disease [facility] unspecified G47.33 Obstructive sleep apnea (adult) (pediatric) C34.90 Malignant neoplasm of unsp part of unsp bronchus or lung R09.02 Hypoxemia Office Visit 12/01/2018 1:00p [facility] Nurse Visit I10 Essential (primary) cc hypertension Assessments Date Code Description Provider 04/12/2019 [email or web address].Hector Chronic obstructive pulmonary disease, Melissa Medrano MD unspecified 04/12/2019 G47.33 Obstructive sleep apnea (adult) Melissa Medrano MD (pediatric) 04/12/2019 C34.90 Malignant neoplasm of unspecified part Melissa Medrano MD of unspecified bronchus or lung 04/12/2019 R09.02 Hypoxemia Melissa Medrano MD 12/01/2018 I10 Essential (primary) hypertension Jennifer Hanna M.D. 12/01/2018 I10 Essential (primary) hypertension Nurse Visit cc Plan of Treatment Future Appointment(s):10/25/2019 1:45 pm - Melissa Medrano MD at [facility]12/01/2018 - Nurse Visit ccI10 Essential (primary) hypertension Functional Status Description No Information Available Mental Status Description No Information Available Referrals Description No Information Available
--- NOTE | 2019-06-09 10:11 | ED ---
Shortness of Breath - HPI Summary HPI Summary: This pt is a 79 y/o male, with hx of COPD and left lung CA with mets to the liver, [place] [facility] [place] worsening SOB since yesterday. Pt reports his SOB has been progressively worsening for the last 2 weeks. Additionally states he has a cough. notes she noticed this morning swelling to the patient's right foot and ankle. Pt denies fever, chills, chest pain, nausea, vomiting. Pt was started on antibiotics, Doxycycline, yesterday by Dr. Medrano. Dr. Medrano refers the patient to the ED today to rule out DVT. Pt does use 4L of oxygen at home at baseline. Pt's oncologist is Dr. Sullivan and is currently on chemotherapy every 3 weeks. - History of Current Complaint Chief Complaint: EDShortnessOfBreath Time Seen by Provider: 06/09/19 09:40 Hx Obtained From: Patient, Family/Test Specialist - Onset/Duration: Lasting Weeks, Still Present Current Severity: Severe Dyspnea At: Rest Aggravating Factors: Nothing Alleviating Factors: Nothing Associated Signs & Symptoms: Cough (Productive), Edema - Allergy/Home Medications Allergies/Adverse Reactions: Allergies Allergy/AdvReac Type Severity Reaction Status Date / Time No Known Allergies Allergy Verified 06/09/19 10:22 Home Medications: Home Medications Amoxicillin PO (*) [Amoxicillin 500 MG CAP*] 2,000 mg PO .1 HR BEFORE DENTAL [History Confirmed 06/09/19] DOXYcycline CAP(*) [DOXYcycline 100MG CAP(*)] 100 mg PO BID 06/09/19 [History Confirmed 06/09/19] Gabapentin CAP(*) [Neurontin 100 mg CAP(*)] 100 mg PO TID 06/09/19 [History Confirmed 06/09/19] Gabapentin CAP(*) [Neurontin 300 CAP(*)] 300 - 600 mg PO BEDTIME PRN 06/09/19 [ History Confirmed 06/09/19] Ipratropium 0.5MG/2.5ML NEB* [Atrovent 0.5 MG NEB.VA*] 1 vial INH BID 06/09/19 [History Confirmed 06/09/19] Ondansetron ODT TAB* [Zofran 4 MG Odt TAB*] 4 mg PO Q4H PRN 06/09/19 [History Confirmed 06/09/19] PMH/Surg Hx/FS Hx/Imm Hx Endocrine/Hematology History: Denies: Hx Bone Marrow Disease, Hx Diabetes, Hx Sickle Cell Disease, Hx Anemia Cardiovascular History: Reports: Hx Atrial Fibrillation, Hx Coronary Artery Disease - CARDIAC CATH 2011, Hx Hypercholesterolemia, Hx Hypertension, 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, Other Cardiovascular Problems/Disorders - HX OF ATRIAL FIB, A FLUTTER Denies: Hx Congestive Heart Failure, Hx Myocardial Infarction, Hx Pacemaker/ ICD Respiratory History: Reports: Hx Asthma, Hx Chronic Obstructive Pulmonary Disease (COPD), Hx Sleep Apnea - CPAP, Other Respiratory Problems/Disorders - O2 3LPM DAYTIME, 4LMP AT BEDTIME GI History: Reports: Hx Gastroesophageal Reflux Disease, Other GI Disorders - pancreatitis History: Reports: Hx Benign Prostatic Hyperplasia, Other Problems/ Disorders - BPH - followed by dr cedillo Denies: Hx Renal Disease Musculoskeletal History: Reports: Hx Arthritis - OSTEO, Hx Tendonitis - LEFT SHOULDER- HAD CORTISONE INJ WITH RELIEF Sensory History: Reports: Hx Cataracts - bilateral, Hx Contacts or Glasses - GLASSES Denies: Hx Hearing Aid Comment Only: Hx Glaucoma - TESTING FOR GLAUCOMA Opthamlomology History: Reports: Hx Cataracts - bilateral, Hx Contacts or Glasses - GLASSES Comment Only: Hx Glaucoma - TESTING FOR GLAUCOMA Neurological History: Denies: Other Neuro Impairments/Disorders Psychiatric History: Reports: Hx Anxiety, Hx Panic Disorder - Cancer History Cancer Type, Location and Year: lung, stage 3 Hx Chemotherapy: Yes - 8 CHEMO 01/18/18, 30 RADIATION 12/11/2017 - Surgical History Surgical History: Yes Surgery Procedure, Year, and Place: [place] [facility] [place] [facility] [place] 60'S PYLONIDAL CYST REMOVED. IMPLANT PENILE- [place] [facility] [place] SAFE UP TO 3T PER SAFTEY MANUAL 2012 (AMBICOR) REPORT IS ATTACHED TO MRI 2011;. bilateral cataract [place] with [place] [facility] [place] [facility] [place] Hx Anesthesia Reactions: No Infectious Disease History: No Infectious Disease History: Denies: Traveled Outside the [place] in Last 30 Days - Family History Known Family History: Negative: Renal Disease - Social History Alcohol Use: Occasionally Alcohol Amount: 2-3 beers on weekend Hx Substance Use: No Substance Use Type: Reports: None Hx Tobacco Use: Yes Smoking Status (MU): Former Smoker Amount Used/How Often: 1.5 ppd for 40 years Length of Time of Smoking/Using Tobacco: 40 YRS Have You Smoked in the Last Year: No Review of Systems Negative: Fever, Chills Negative: Chest Pain Positive: Shortness Of Breath, Cough Negative: Vomiting, Nausea Positive: Edema - RLE All Other Systems Reviewed And Are Negative: Yes Physical Exam - Summary Physical Exam Summary: Constitutional: Well-developed, Alert, Elderly with mild respiratory distress. Skin: Warm, Dry HENT: Normocephalic; Atraumatic Eyes: Conjunctiva normal Neck: Musculoskeletal ROM normal neck. (-) JVD, (-) Stridor Cardio: Rhythm regular, rate normal, Heart sounds normal; Intact distal pulses; Radial pulses are 2+ and symmetric. (-) Murmur Pulmonary/Chest wall: Increased work of breathing with accessory muscle use. Bilateral rhonchi. Abd: Soft, (-) tenderness, (-) Distension, (-) Guarding, (-) Rebound Musculoskeletal: 1+ edema to the right lower extremity. Lymph: (-) Cervical adenopathy Neuro: Alert, Oriented x3 Psych: Mood and affect Normal Triage Information Reviewed: Yes Vital Signs On Initial Exam: Initial Vitals Temp Pulse Resp BP Pulse Ox 97.0 F 92 18 158/73 73 06/09/19 09:33 06/09/19 09:33 06/09/19 09:33 06/09/19 09:33 06/09/19 09:33 Vital Signs Reviewed: Yes Procedures - Sedation Patient Received Moderate/Deep Sedation with Procedure: No Diagnostics - Vital Signs Vital Signs Temp Pulse Resp BP Pulse Ox 06/09/19 09:33 97.0 F 92 18 158/73 73 - Laboratory Result Diagrams: 06/09/19 09:57 06/09/19 09:57 Lab Statement: Any lab studies that have been ordered have been reviewed, and results considered in the medical decision making process. - Radiology Chest XR Radiology Interpretation Completed By: Radiologist Summary of Radiographic Findings: IMPRESSION: Right perihilar mass decreased in size from the previous examination. Dr. Javier has reviewed this report. - CT Chest/Thorax CT CT Interpretation Completed By: Radiologist Summary of CT Findings: IMPRESSION: 1. Limited study. 2. Within the limitations of the study, there is no pulmonary arterial filling defect to suggest pulmonary embolism. 3. There is a right perihilar mass with perihilar carotid changes. This has decreased in size from the previous examination. 4. There are mild subpleural fibrotic changes of the left lower lobe. 5. There is patchy consolidation of the right lower lobe with a small right pleural effusion. Dr. Javier has reviewed this report. - Ultrasound No standard instances Ultrasound Interpretation Completed By: Radiologist Summary of Ultrasound Findings: Right lower extremity US IMPRESSION: No evidence for deep venous thrombosis. Dr. Javier has reviewed this report. - EKG 09:42 Cardiac Rate: NL - at 87 bpm EKG Rhythm: Sinus Rhythm EKG Comparison: No Significant Change - compared to 02/20/19. Summary of EKG Findings: EKG at 0942 shows sinus rhythm at a rate of 87 bpm. When compared to 02/20/19 there is no significant change. Re-Evaluation - Re-Evaluation First Eval Re-Evaluation Time: 13:09 Comment: Reviewed admission plan with pt and . Course/Dx - Course Course Of Treatment: 79-year-old male with a history of lung cancer on chemotherapy who presents with shortness of breath and hypoxia. Patient hypoxic 70s on 4 L which is baseline, when resting inc to 95%. - ddx includes PNA, PE, worsening of cancer. - reports cough, on doxycycline. Has right lower extremity swelling, consider DVT check RLE ultrasound. Given increased hypoxia , fatigue will check a CT of the chest to assess for pulmonary embolism. Sent lab work including a troponin, check a chest x-ray. Patient hernia on antibiotics, blood cultures sent. We'll discuss with oncology - Diagnoses Provider Diagnoses: Pneumonia, Hypoxia - Physician Notifications Discussed Care of Patient With: Constance Boles Time Discussed With Above Provider: 13:06 Instructed by Provider To: Other - Discussed case with Dr. Boles, oncologist, who accepts the pt for admission. Discharge ED - Sign-Out/Discharge Documenting (check all that apply): Patient Departure - [place] [facility] [place] Discharge Plan Condition: Stable Disposition: ADMITTED TO [facility] Referrals: Aj Miller MD [Primary Care Provider] - - Billing Disposition and Condition Condition: STABLE Disposition: Admitted to [facility] - Attestation Statements Document Initiated by Scribe: Yes Documenting Scribe: Suze Arana Provider For Whom Scribe is Documenting (Include Credential): Cristo Javier MD Scribe Attestation: I, Suze Arana, scribed for Cristo Javier MD on 06/09/19 at 1425. Scribe Documentation Reviewed: Yes Provider Attestation: The documentation as recorded by the scribeSuze accurately reflects the service I personally performed and the decisions made by me, Cristo Javier MD Status of Scribe Document: Viewed
[2019-06-09 10:13] LABS: ABS Lymphocytes 0.6 10^3/ul (1.0-4.8); ABS Monocytes 0.8 10^3/ul (0-0.8); ABS Neutrophils 5.3 10^3/ul (1.5-7.7); Eosinophil % 0.2 %; Hematocrit 26 % (42-52); Hemoglobin 8.8 g/dL (14.0-18.0); Lymphocyte % 8.7 %; Mean Corpuscular HGB Conc 34 g/dL (31-36); Mean Corpuscular Hemoglobin 30 pg (27-31); Mean Corpuscular Volume 90 fL (80-94); Mean Platelet Volume 6.9 fL (7.4-10.4); Platelet Count 138 10^3/uL (150-450); Red Cell Distribution Width 16 % (10-15); White Blood Count 6.7 10^3/uL (3.5-10.8)
[2019-06-09 10:26] LABS: INR 1.34 (0.82-1.09)
[2019-06-09 10:27] LABS: Albumin 3.2 g/dL (3.2-5.2); Albumin/Globulin Ratio 1.5 (1-3); BUN/Creatinine Ratio 14.9 (8-20); Calcium 7.9 mg/dL (8.6-10.3); EGFR African American 139.2 (>60); Globulin 2.2 g/dL (2-4); Potassium 2.9 mmol/L (3.5-5.0); Total Bilirubin 0.7 mg/dL (0.2-1.0); Total Protein 5.4 g/dL (6.4-8.9)
[2019-06-09 10:29] LABS: Troponin I 0.01 ng/mL (<0.04)
[2019-06-09] MEDS: KCL 20 MEQ/100 ML IVPREMIX* 20 MEQ/100 ML BAG IV SCH ×2 (10:52→13:11)
[2019-06-09] MEDS ORDERED: Iohexol 350* (CONTRAST) 500 ML MDV IV ONE (11:37)
[2019-06-09] MEDS ORDERED: Albuterol/Ipratropium NEB.SOL* Albuterol 2.5 MG/Ipratropium 0.5 MG 3 ML INH ONE (14:49)
[2019-06-09] MEDS ORDERED: Piperacillin/Tazobac ADVAN(*) 3.375 GM in NS 0.9% 100 ML* 100 ML IVPB ONE (14:56)
[2019-06-09] MEDS ORDERED: Acetaminophen TAB* 325 MG PO PRN (14:56)
[2019-06-09] MEDS ORDERED: Temazepam CAP* 15 MG PO PRN (14:56)
[2019-06-09] MEDS ORDERED: methylPREDNISolone 125 MG* 2 ML VIAL IV ONE (14:56)
[2019-06-09] MEDS ORDERED: Albuterol/Ipratropium NEB.SOL* Albuterol 2.5 MG/Ipratropium 0.5 MG 3 ML INH SCH (15:00)
[2019-06-09] MEDS ORDERED: Zosyn per Pharmacy* NOTE FOLLOW UP SCH (15:00)
[2019-06-09] MEDS ORDERED: Gabapentin CAP(*) 300 MG PO PRN (15:02)
[2019-06-09] MEDS ORDERED: Tiotropium Brom/Olodaterol MDI INH PRN (15:02)
[2019-06-09] MEDS ORDERED: Ondansetron ODT TAB* 4 MG PO PRN (15:02)
[2019-06-09] MEDS ORDERED: Albuterol/Ipratropium NEB.SOL* Albuterol 2.5 MG/Ipratropium 0.5 MG 3 ML INH PRN (17:01)
[2019-06-09] MEDS: Pantoprazole TAB * 40 MG TAB PO SCH (18:18)
[2019-06-09 18:36] LABS: Urine Appearance Clear; Urine Bacteria Absent (Absent); Urine Bilirubin Negative (Negative); Urine Blood 1+ (Negative); Urine Color Straw; Urine Glucose Negative (Negative); Urine Ketones Trace (Negative); Urine Nitrite Negative (Negative); Urine Protein Negative (Negative); Urine Red Blood Cell 3+(>10/hpf) (Absent); Urine Specific Gravity 1.017 (1.010-1.030); Urine Urobilinogen Negative (Negative); Urine White Blood Cell Trace(0-5/hpf) (Absent)
[2019-06-09] MEDS: ZOSYN 3.375 GM Q8H per EXTENDED INFUSION IVPB SCH ×2 (20:36)
[2019-06-09] MEDS: guaiFENesin ER TAB 600 MG PO SCH (20:37)
[2019-06-09] MEDS: Apixaban* 5 MG TAB PO SCH (20:37)
[2019-06-09] MEDS: Gabapentin CAP(*) 100 MG PO SCH (20:37)
[2019-06-09] MEDS: FLECAINIDE 50 MG PO SCH (20:39)
[2019-06-09] MEDS: methylPREDNISolone 125 MG* 2 ML VIAL IV SCH (22:02)
[2019-06-10] MEDS: Zolpidem TAB* 5 MG PO PRN ×2 (00:04→22:01)
[2019-06-10] MEDS: ZOSYN 3.375 GM Q8H per EXTENDED INFUSION IVPB SCH ×6 (04:17→20:24)
[2019-06-10 04:26] LABS: Hematocrit 29 % (42-52); Hemoglobin 9.8 g/dL (14.0-18.0); Mean Corpuscular HGB Conc 33 g/dL (31-36); Mean Corpuscular Hemoglobin 29 pg (27-31); Mean Corpuscular Volume 87 fL (80-94); Platelet Count 167 10^3/uL (150-450); Red Blood Count 3.36 10^6 /uL (4.18-5.48); Red Cell Distribution Width 17 % (10-15); White Blood Count 3.3 10^3/uL (3.5-10.8)
[2019-06-10 04:42] LABS: Albumin 3.1 g/dL (3.2-5.2); Albumin/Globulin Ratio 1.2 (1-3); BUN/Creatinine Ratio 18.8 (8-20); Calcium 8.2 mg/dL (8.6-10.3); EGFR African American 146.7 (>60); EGFR Non-African American 121.3 (>60); Globulin 2.6 g/dL (2-4); Potassium 3.4 mmol/L (3.5-5.0); Total Bilirubin 0.8 mg/dL (0.2-1.0); Total Protein 5.7 g/dL (6.4-8.9)
[2019-06-10] MEDS: methylPREDNISolone 125 MG* 2 ML VIAL IV SCH ×3 (09:38→22:01)
[2019-06-10] MEDS: Diltiazem CD CAP* 240 MG PO SCH (09:39)
[2019-06-10] MEDS: guaiFENesin ER TAB 600 MG PO SCH ×2 (09:39→20:06)
[2019-06-10] MEDS: Escitalopram * 20 MG TABLET PO SCH (09:39)
[2019-06-10] MEDS: Atorvastatin* 10 MG TAB PO SCH (09:39)
[2019-06-10] MEDS: Gabapentin CAP(*) 100 MG PO SCH ×3 (09:40→20:05)
[2019-06-10] MEDS: Apixaban* 5 MG TAB PO SCH ×2 (09:40→20:05)
[2019-06-10] MEDS: Finasteride TAB* 5 MG PO SCH (09:40)
[2019-06-10] MEDS: FLECAINIDE 50 MG PO SCH ×3 (09:44→20:04)
[2019-06-10 12:11] LABS: Magnesium 1.8 mg/dL (1.9-2.7)
[2019-06-10] MEDS ORDERED: Potassium Chlor TAB* 20 MEQ TAB.ER PO ONE (17:05)
[2019-06-10] MEDS ORDERED: Magnesium Sulfate 2 GM IV* 2 GM/50 ML BAG IVPB ONE (17:05)
--- NOTE | 2019-06-10 17:13 | PN ---
Progress Note - Progress Note Date of Service: 06/10/19 SOAP: Subjective: [Feeling a little better today, but still pretty short of breath. No fevers. Requiring 5L supp O2. He uses 4L intermittently at home (generally just with activity), he typically does not require supp O2 at rest.] Objective: [ Vital Signs: Temp Pulse Resp BP Pulse Ox 97.5 F 93 20 156/76 99 06/10/19 11:15 06/10/19 11:15 06/10/19 14:02 06/10/19 11:15 06/10/19 11:15 Acetaminophen (Tylenol Tab*) 650 mg PO Q6H PRN PRN Reason: MILD PAIN or TEMP > 100.4 Last Admin: 06/10/19 12:17 Dose: 650 mg Albuterol/Ipratropium (Duoneb (Albuterol 2.5 Mg/Ipratropium 0.5 Mg)) 1 neb INH Q4H PRN PRN Reason: SOB/WHEEZING Last Admin: 06/09/19 20:40 Dose: 1 neb Apixaban (Eliquis*) 5 mg PO BID [facility] Last Admin: 06/10/19 09:40 Dose: 5 mg Atorvastatin Calcium (Lipitor*) 10 mg PO QAM [facility] Last Admin: 06/10/19 09:39 Dose: 10 mg Diltiazem HCl (Cardizem Cd Cap*) 240 mg PO QAM [facility] Last Admin: 06/10/19 09:39 Dose: 240 mg Escitalopram Oxalate (Lexapro *) 20 mg PO QAM [facility] Last Admin: 06/10/19 09:39 Dose: 20 mg Finasteride (Proscar Tab*) [facility] [place] Last Admin: 06/10/19 09:40 Dose: 5 mg Flecainide Acetate (Flecainide Tab(Nf)) 75 mg PO BID [facility] Last Admin: 06/10/19 16:19 Dose: 75 mg Gabapentin (Neurontin Cap(*)) 100 mg PO TID [facility] Last Admin: 06/10/19 14:02 Dose: 100 mg Gabapentin (Neurontin Cap(*)) 600 mg PO BEDTIME PRN PRN Reason: PAIN - MODERATE Guaifenesin (Mucinex*) 600 mg PO BID [facility] Last Admin: 06/10/19 09:39 Dose: 600 mg Heparin Sodium (Porcine) (Heparin Flush Port (Ivad)) 5 ml FLUSH DAILY [facility]; Protocol Piperacillin Sod/Tazobactam (Sod 3.375 gm/ Sodium Chloride) 100 mls @ 25 mls/ hr IVPB Q8H [facility] Last Admin: 06/10/19 12:08 Dose: 25 mls/hr Magnesium Sulfate (Magnesium Sulfate 2 Gm Iv*) 2 gm in 50 mls @ 50 mls/hr IVPB ONCE ONE Stop: 06/10/19 18:04 Methylprednisolone Sodium Succinate (Solu-Medrol 125mg *) 40 mg IV Q8HR [facility] Last Admin: 06/10/19 14:01 Dose: 40 mg Ondansetron HCl (Zofran Odt Tab*) 4 mg PO Q4H PRN PRN Reason: NAUSEA/VOMITING Pantoprazole Sodium (Protonix Tab*) 40 mg PO QPM [facility] Last Admin: 06/09/19 18:18 Dose: 40 mg Pharmacy Consult (Zosyn Per Pharmacy*) 1 note FOLLOW UP .ZOSYN PER PHARMACY [facility] Potassium Chloride (Klor Con Er Tab*) 40 meq PO ONCE ONE Stop: 06/10/19 17:06 Tiotropium [place]/Olodaterol (Stiolto Respimat Inh [place] (60 Puff)) 2 puff INH QAM PRN PRN Reason: SOB/WHEEZING Zolpidem Tartrate (Ambien Tab*) 5 mg PO BEDTIME PRN PRN Reason: SLEEP Last Admin: 06/10/19 00:04 Dose: 5 mg Laboratory Results - last 24 hr 06/09/19 06/09/19 06/10/19 09:57 18:10 04:16 WBC 3.3 L RBC 3.36 L Hgb 9.8 L Hct 29 L MCV 87 MCH 29 MCHC 33 RDW 17 H Plt Count 167 MPV 7.0 L Sodium Potassium Chloride Carbon Dioxide Anion Gap BUN Creatinine Est GFR ( Amer) Est GFR (Non-Af Amer) BUN/Creatinine Ratio Glucose Calcium Magnesium Total Bilirubin AST ALT Alkaline Phosphatase Total Protein Albumin Globulin Albumin/Globulin Ratio Urine Color Straw Urine Appearance Clear Urine pH 7.0 Ur Specific [place] 1.017 Urine Protein Negative Urine Ketones Trace A Urine Blood 1+ A Urine Nitrate Negative Urine Bilirubin Negative Urine Urobilinogen Negative Ur Leukocyte Esterase Negative Urine WBC (Auto) Trace(0-5/hpf) Urine RBC (Auto) 3+(>10/hpf) A Urine Bacteria Absent Urine Glucose Negative Blood Type B Positive Antibody Screen Negative Crossmatch See Detail 06/10/19 04:16 WBC RBC Hgb Hct MCV MCH MCHC RDW Plt Count MPV Sodium 140 Potassium 3.4 L Chloride 101 Carbon Dioxide 33 H Anion Gap 6 BUN 12 Creatinine 0.64 L Est GFR ( Amer) 146.7 Est GFR (Non-Af Amer) 121.3 BUN/Creatinine Ratio 18.8 Glucose 179 H Calcium 8.2 L Magnesium 1.8 L Total Bilirubin 0.80 AST 12 L ALT 13 Alkaline Phosphatase 64 Total Protein 5.7 L Albumin 3.1 L Globulin 2.6 Albumin/Globulin Ratio 1.2 Urine Color Urine Appearance Urine pH Ur Specific [place] Urine Protein Urine Ketones Urine Blood Urine Nitrate Urine Bilirubin Urine Urobilinogen Ur Leukocyte Esterase Urine WBC (Auto) Urine RBC (Auto) Urine Bacteria Urine Glucose Blood Type Antibody Screen Crossmatch Exam: Gen: Relatively well appearing 79 yo male in NAD with oxymask in place HEENT: MMM CV: RRR Resp: diffuse rhonchi/wheezing Abd: soft and nonTTP Ext: trace LE edema] Assessment: [This is a 79 yo male with now recurrent and metastatic NSCLC who completed his 2nd cycle of carboplatin/pemetrexed/pembrolizumab 05/26. He was admitted with a new PNA and subsequent COPD exacerbation.] Plan: [1. PNA/COPD exacerbation - small improvement - cont IV solumedrol with home inhaled medications and prn nebulizers - cont Zosyn 2. Metastatic NSCLC - good interval response seen on CT yesterday after 2 cycles - will likely require a 1 week delay for C3 3. Paroxysmal afib - stop telemetry monitoring - cont usual home medications and anticoagulation with eliquis Dispo: possible dc home tomorrow]
[2019-06-10] MEDS: Pantoprazole TAB * 40 MG TAB PO SCH (17:57)
[2019-06-11] MEDS: ZOSYN 3.375 GM Q8H per EXTENDED INFUSION IVPB SCH ×2 (04:22)
[2019-06-11 04:55] LABS: BUN/Creatinine Ratio 25.3 (8-20); Calcium 8.1 mg/dL (8.6-10.3); EGFR African American 122.2 (>60); Magnesium 2.2 mg/dL (1.9-2.7); Potassium 3.7 mmol/L (3.5-5.0)
[2019-06-11] MEDS: methylPREDNISolone 125 MG* 2 ML VIAL IV SCH (06:11)
[2019-06-11 06:54] LABS: ABS Lymphocytes 0.2 10^3/ul (1.0-4.8); ABS Monocytes 0.2 10^3/ul (0-0.8); ABS Neutrophils 7.4 10^3/ul (1.5-7.7); Hematocrit 28 % (42-52); Hemoglobin 9.3 g/dL (14.0-18.0); Lymphocyte % 2.7 %; Mean Corpuscular HGB Conc 34 g/dL (31-36); Mean Corpuscular Hemoglobin 30 pg (27-31); Mean Corpuscular Volume 88 fL (80-94); Mean Platelet Volume 6.8 fL (7.4-10.4); Platelet Count 226 10^3/uL (150-450); Red Blood Count 3.14 10^6 /uL (4.18-5.48); Red Cell Distribution Width 17 % (10-15); White Blood Count 7.8 10^3/uL (3.5-10.8)
[2019-06-11] MEDS: Escitalopram * 20 MG TABLET PO SCH (08:57)
[2019-06-11] MEDS: Diltiazem CD CAP* 240 MG PO SCH (08:57)
[2019-06-11] MEDS: guaiFENesin ER TAB 600 MG PO SCH (08:57)
[2019-06-11] MEDS: Gabapentin CAP(*) 100 MG PO SCH (08:57)
[2019-06-11] MEDS: Apixaban* 5 MG TAB PO SCH (08:57)
[2019-06-11] MEDS: Finasteride TAB* 5 MG PO SCH (08:58)
[2019-06-11] MEDS: Atorvastatin* 10 MG TAB PO SCH (08:59)
[2019-06-11] MEDS: FLECAINIDE 50 MG PO SCH (08:59)
[2019-06-11 09:17] VITALS: BP 159/71
--- NOTE | 2019-06-11 20:33 | DS ---
CC: Dr. Miller; Dr. Medrano; Dr. Sullivan * DISCHARGE SUMMARY: DATE OF ADMISSION: 06/09/19 DATE OF DISCHARGE: 06/11/19 PRIMARY CARE PROVIDER: Dr. Miller. PRIMARY ONCOLOGIST: Dr. Sullivan. ATTENDING PHYSICIAN: Dr. Boles.* (DICTATED BY BRIJESH RAMOS) DISCHARGING PROVIDER: BRIJESH Ramos PRIMARY DISCHARGE DIAGNOSES: 1. Right lower lobe pneumonia with chronic obstructive pulmonary disease exacerbation. 2. Metastatic [id number] lung cancer status post 2 cycles of carboplatin, pemetrexed, and pembrolizumab. 3. Paroxysmal atrial fibrillation - chronically anticoagulated with Eliquis. DISCHARGE MEDICATIONS: 1. Eliquis 5 mg p.o. twice daily. 2. Atorvastatin 10 mg p.o. daily. 3. Diltiazem 240 mg p.o. daily. 4. Lexapro 20 mg p.o. daily. 5. Finasteride 5 mg p.o. daily. 6. Flecainide 75 mg p.o. twice daily. 7. Gabapentin 100 mg p.o. 3 times daily and an additional 300 to 600 mg p.o. at bedtime as needed for pain. 8. Hydrocodone/acetaminophen 5/325 mg one to two tablets p.o. q.4 to 6 hours as needed for pain. 9. DuoNeb inhaled twice daily. 10. Omeprazole 20 mg p.o. daily. 11. Ondansetron 4 mg p.o. q.4 hours as needed. 12. Anoro Ellipta Device 1 inhaled daily. 13. Ambien 5 mg p.o. at bedtime. 14. Augmentin 875 p.o. twice daily x7 days. 15. Prednisone 40 mg p.o. x3 days and 30 mg p.o. x3 days and 20 mg p.o. x3 days and 10 mg x3 days and continue as this is his usual home dose. HOSPITAL IMAGIN. Chest x-ray on 06/09/19 showed a right perihilar mass decreased in size from prior exam. 2. Venous Doppler study on 06/09/19 demonstrates no evidence of DVT. 3. CTA of the chest showed no PE with a right perihilar mass with perihilar carotid changes, which is decreased in size from prior exam. There are mild subpleural fibrotic changes in the left lower lobe and patchy consolidation of the right lower lobe with small right pleural effusion. HOSPITAL COURSE: This is a 79-year-old gentleman treated for stage III non- small- cell lung cancer, approximately 1 year ago, who unfortunately recently diagnosed with recurrent and metastatic [id number] lung cancer who recently resumed chemotherapy receiving a second infusion of carboplatin, pemetrexed and pembrolizumab on 05/26/19. He began feeling quite fatigued with increased work of breathing approximately 1 week prior to his hospitalization. He contacted his automotive worker, Dr. Medrano, who prescribed doxycycline and prednisone, but his symptoms progressed significantly over the next 24 hour and he was subsequently referred to the emergency department for evaluation. Initial labs , which showed stable chronic anemia. No leukocytosis or leukopenia. Chemistries showed hypokalemia, but otherwise unremarkable. Chest imaging demonstrated a right lower lobe pneumonia and interval improvement in his right hilar lung mass. The patient generally requires supplemental oxygen at home but typically does not use at rest and uses between 2 and 4 L with activity only. When he arrived in the emergency department, his oxygen saturation was at 73% and improved quickly with initiation of 10 L of supplemental O2. He was subsequently started on Zosyn for treatment of his pneumonia and IV corticosteroids along with regular nebulizer treatments. The patient remained afebrile throughout his hospital stay and labs are generally unremarkable. The patient had significant symptomatic improvement. He was still requiring supplemental oxygen at the time of discharge, but was much closer to his baseline. DISPOSITION AND FOLLOWUP PLAN: The patient is being discharged to home in stable condition where he lives with his . We will plan on additional 7 days of Augmentin (Levaquin was avoided due to QT prolongation with flecainide) . The patient will also complete a prednisone taper starting at 40 mg and decreasing by 10 mg every 3 days. He has established follow up with Dr. Sullivan on 06/15/19 which he is encouraged to keep. Anticipate delaying cycle 3 of his chemotherapy for an additional week. The patient is encouraged to contact the oncology service with any worsening symptoms. BRIJESH RAMOS [id number]/[facility] #: [id number] MTDD
== END 2019-06-11 11:15 | disposition home or self-care (01) | DRG 190 ==
LOC: ED 09:30 → MED 14:56
PROVIDERS: ADMIT Internal Medicine Hematology & Oncology; ATTEND Internal Medicine Hematology & Oncology
PROC: 30233N1 Transfusion of Nonautologous Red Blood Cells into Peripheral Vein, Percutaneous Approach (ICD-10-PCS; principal; 2019-06-09)
DX: J44.0 Chronic obstructive pulmonary disease with (acute) lower respiratory infection (principal); J18.1 Lobar pneumonia, unspecified organism; C34.90 Malignant neoplasm of unspecified part of unspecified bronchus or lung; J90 Pleural effusion, not elsewhere classified; C78.7 Secondary malignant neoplasm of liver and intrahepatic bile duct; J44.1 Chronic obstructive pulmonary disease with (acute) exacerbation; I48.0 Paroxysmal atrial fibrillation; G47.33 Obstructive sleep apnea (adult) (pediatric); E87.6 Hypokalemia; E78.5 Hyperlipidemia, unspecified; Z66 Do not resuscitate; E66.9 Obesity, unspecified; I25.10 Atherosclerotic heart disease of native coronary artery without angina pectoris; D64.81 Anemia due to antineoplastic chemotherapy; I07.1 Rheumatic tricuspid insufficiency; Z96.642 Presence of left artificial hip joint; Z99.81 Dependence on supplemental oxygen; Z79.2 Long term (current) use of antibiotics; Z79.01 Long term (current) use of anticoagulants; Z79.51 Long term (current) use of inhaled steroids; Z79.52 Long term (current) use of systemic steroids; Z79.899 Other long term (current) drug therapy; Z68.31 Body mass index [BMI] 31.0-31.9, adult; Z87.891 Personal history of nicotine dependence; Z80.0 Family history of malignant neoplasm of digestive organs
CPT/HCPCS: 36415; 71046; 71275; 80048; 80053; 81003; 81015; 82272; 83735; 84484; 85025; 85027; 85610; 86850; 86900; 86901; 86922; 87040; 87070; 87086; 87205; 87899; 93005; 94640; 99222; 99232; 99239; 99284; A9270-GY; J1642; J2543; J2930; J3475; J3480; J3535; P9040; Q9967

== ENCOUNTER 2019-07-10 09:32 | Inpatient (IN) | payer MEDICARE, BC ==
[2019-07-10] MEDS ORDERED: Piperacillin/Tazobac ADVAN(*) 3.375 GM in NS 0.9% 100 ML* 100 ML IVPB ONE ×2 (09:39→11:49)
--- NOTE | 2019-07-10 09:41 | ED ---
Shortness of Breath - HPI Summary HPI Summary: The patient is a y/o M arriving by ambulance to [facility] with a chief complaint of shortness of breath onset this morning. He reports that he used his inhaler twice prior to arrival without any relief. EMS reports that they auscultated wheezing which improved to mild crackles following 4L O2 administration in the ambulance. SpO2 at 88% increased to 6L to reach 94% O2 sat. He denies any fevers at home, and EMS notes temperature of 99.8F. Patient endorses productive cough with greenish-yellow phlegm and right upper quadrant pain, but he denies any chest pain. Currently, his symptoms are rated 5/10 in severity. He was treated for pneumonia in May 2019 and finished the course of Amoxicillin he was prescribed at the time. PMHx: COPD, asthma, sleep apnea, atrial fibrillation , CAD, HLD, HTN, stage 3 lung cancer with chemo and radiation, BPH. Former smoker, weekly EtOH, no substance use. Medications reviewed. Allergies noted. - History of Current Complaint Hx Obtained From: Patient, EMS Onset/Duration: Lasting Minutes, Still Present Timing: Constant Current Severity: Moderate Dyspnea At: Rest Aggravating Factors: Nothing Alleviating Factors: Nothing - inhaler to no relief Associated Signs & Symptoms: Cough (Productive) - green/yellow phlegm - Allergy/Home Medications Allergies/Adverse Reactions: Allergies Allergy/AdvReac Type Severity Reaction Status Date / Time No Known Allergies Allergy Verified 06/09/19 10:22 Home Medications: Home Medications predniSONE TAB* [Deltasone 10 MG TAB*] 10 mg PO DAILY 07/10/19 [History Confirmed 07/10/19] PMH/Surg Hx/FS Hx/Imm Hx Endocrine/Hematology History: Denies: Hx Bone Marrow Disease, Hx Diabetes, Hx Sickle Cell Disease, Hx Anemia Cardiovascular History: Reports: Hx Atrial Fibrillation, Hx Coronary Artery Disease - CARDIAC CATH 2011, Hx Hypercholesterolemia, Hx Hypertension, 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, Other Cardiovascular Problems/Disorders - HX OF ATRIAL FIB, A FLUTTER Denies: Hx Congestive Heart Failure, Hx Myocardial Infarction, Hx Pacemaker/ ICD Respiratory History: Reports: Hx Asthma, Hx Chronic Obstructive Pulmonary Disease (COPD), Hx Sleep Apnea - CPAP, Other Respiratory Problems/Disorders - O2 3LPM DAYTIME, 4LMP AT BEDTIME GI History: Reports: Hx Gastroesophageal Reflux Disease, Other GI Disorders - pancreatitis History: Reports: Hx Benign Prostatic Hyperplasia, Other Problems/ Disorders - BPH - followed by dr cedillo Denies: Hx Renal Disease Musculoskeletal History: Reports: Hx Arthritis - OSTEO, Hx Tendonitis - LEFT SHOULDER- HAD CORTISONE INJ WITH RELIEF Sensory History: Reports: Hx Cataracts - bilateral, Hx Contacts or Glasses - GLASSES Denies: Hx Hearing Aid Comment Only: Hx Glaucoma - TESTING FOR GLAUCOMA Opthamlomology History: Reports: Hx Cataracts - bilateral, Hx Contacts or Glasses - GLASSES Comment Only: Hx Glaucoma - TESTING FOR GLAUCOMA Neurological History: Denies: Other Neuro Impairments/Disorders Psychiatric History: Reports: Hx Anxiety, Hx Panic Disorder - Cancer History Cancer Type, Location and Year: lung, stage 3 Hx Chemotherapy: Yes - 8 CHEMO 01/18/18, 30 RADIATION 12/11/2017 - Surgical History Surgery Procedure, Year, and Place: LEFT HIP REPLACEMENT 2011 [facility] [place]. CARDIAC CATH - 2011 [facility] [place]. 60'S PYLONIDAL CYST REMOVED. IMPLANT PENILE- AT [facility] [place]- MRI SAFE UP TO 3T PER SAFTEY MANUAL 2012 (AMBICOR) REPORT IS ATTACHED TO MRI 2011;. bilateral cataract extraction with IOL 2012 [facility] [place]. cholecystectomy 2014 - [facility] [place]. lung biopsy 2018 Hx Anesthesia Reactions: No - Family History Known Family History: Negative: Diabetes, Renal Disease - Social History Alcohol Use: Weekly Alcohol Amount: 3beers/week Hx Substance Use: No Substance Use Type: Reports: None Hx Tobacco Use: Yes Smoking Status (MU): Former Smoker Amount Used/How Often: 1.5 ppd for 40 years Length of Time of Smoking/Using Tobacco: 40 YRS Have You Smoked in the Last Year: No Review of Systems Negative: Fever Negative: Chest Pain Positive: Shortness Of Breath, Cough - productive, green/yellow phlegm Positive: Abdominal Pain - right upper quadrant All Other Systems Reviewed And Are Negative: Yes Physical Exam - Summary Physical Exam Summary: VITAL SIGNS: Reviewed. GENERAL: Patient is a well-developed and nourished elderly male who is lying comfortable in the stretcher. Patient is in mild acute respiratory distress. HEAD AND FACE: No signs of trauma. No ecchymosis, hematomas or skull depressions. No sinus tenderness. EYES: PERRLA, EOMI x 2, No injected conjunctiva, no nystagmus. EARS: Hearing grossly intact. Ear canals and tympanic membranes are within normal limits. MOUTH: Oropharynx within normal limits. NECK: Supple, trachea is midline, no adenopathy, no JVD, no carotid bruit, no c- spine tenderness, neck with full ROM. CHEST: Symmetric, no tenderness at palpation. LUNGS: Diffuse bilateral crackles. Tachypnea. Speaking in short sentences. No wheezing or crackles. CVS: Irregular rate and rhythm, S1 and S2 present, no murmurs or gallops appreciated. ABDOMEN: Soft, non-tender. No signs of distention. No rebound, no guarding, and no masses palpated. Bowel sounds are normal. EXTREMITIES: FROM in all major joints, no edema, no cyanosis or clubbing. NEURO: Alert and oriented x 3. No acute neurological deficits. Speech is normal and follows commands. SKIN: Dry and warm. Triage Information Reviewed: Yes Vital Signs Reviewed: Yes Procedures - Sedation Patient Received Moderate/Deep Sedation with Procedure: No Diagnostics - Laboratory Result Diagrams: 07/11/19 06:00 07/11/19 06:00 Lab Statement: Any lab studies that have been ordered have been reviewed, and results considered in the medical decision making process. - Radiology Chest X-Ray Radiology Interpretation Completed By: Radiologist Summary of Radiographic Findings: Impression: 1. Increased consolidation in the peripheral right middle lung zone. 2. Known right perihilar mass (better characterized by recent CT). ED physician has reviewed this report. - EKG 0959 Cardiac Rate: Other Rate - 88 BPM EKG Rhythm: Atrial Fibrillation Summary of EKG Findings: EKG at 0959 reveals atrial fibrillation at [address] elevations. ED physician has reviewed and interpreted this EKG. 1006 Cardiac Rate: Other Rate - 81 BPM EKG Rhythm: Atrial Fibrillation Summary of EKG Findings: EKG at 1006 reveals atrial fibrillation at [address] elevations. ED physician has reviewed and interpreted this EKG. Re-Evaluation - Re-Evaluation First Eval Re-Evaluation Time: 11:05 Comment: Patient and family aware of results and plan for admission. Course/Dx - Course Assessment/Plan: Patient is a 79-year-old male who presents to the emergency department with chief complaints of shortness of breath, productive cough, and weakness. Past medical history: Sleep apnea, Acute pancreatitis, Cholelithiasis , COPD, Hypertension, Dyslipidemia, Paroxysmal atrial fibrillation on eliquis, Anxiety, Hypokalemia. In the physical exam, the patient is in slight respiratory distress secondary to the shortness of breath. Patient was placed on oxygen via nasal cannula. He is positive for sepsis alert; therefore, he was started onIV fluids 30 ccs per KG, and Zosyn and Levaquin as a broad-spectrum antibiotic. Blood work without any significant abnormality except for slight anemia, INR of 1.65, fibrinogen of 904, chloride of 94, troponin of 0.03, CRP of 398, and BNP of 129. Chest x-ray impression: Increased consolidation in the peripheral right middle lung zone. Known right perihilar mass. Patient was given a Duoneb and solu-medrol. I discussed my physical exam and test results with Dr. Adame from the hospitalist services, and she agrees to admit the patient to his services. The patient is hemodynamically stable alert and oriented x3. - Diagnoses Provider Diagnoses: Pneumonia, COPD exacerbation, Troponin level elevated - Physician Notifications Discussed Care of Patient With: Yolette Adame - hospitalist Time Discussed With Above Provider: 11:00 Instructed by Provider To: Other - I discussed the patient's case with Dr. Adame, and she accepts the patient for admisison. Discharge ED - Sign-Out/Discharge Documenting (check all that apply): Patient Departure - Patient accepted for admission by Dr. Adame. - Discharge Plan Condition: Stable Disposition: ADMITTED TO [facility] - Billing Disposition and Condition Condition: STABLE Disposition: Admitted to [facility] - Attestation Statements Document Initiated by Lucio: Yes Documenting Scribe: Silke Castillo Provider For Whom Lucio is Documenting (Include Credential): Dr. Low Mendez MD Scribe Attestation: Silke Handley, scribed for Dr. Low Mendez MD on 07/11/19 at 0933. Scribe Documentation Reviewed: Yes Provider Attestation: The documentation as recorded by the Silke gabriel accurately reflects the service I personally performed and the decisions made by me, Dr. Low Mendez MD Status of Scribe Document: Viewed
[2019-07-10] MEDS ORDERED: NS 0.9% 1000 ML** 1,000 ML IV.FLUID IV ONE (09:51)
[2019-07-10 09:58] LABS: Hematocrit 30 % (42-52); Hemoglobin 10.3 g/dL (14.0-18.0); Mean Corpuscular HGB Conc 34 g/dL (31-36); Mean Corpuscular Hemoglobin 30 pg (27-31); Mean Corpuscular Volume 87 fL (80-94); Mean Platelet Volume 6.7 fL (7.4-10.4); Platelet Count 223 10^3/uL (150-450); Red Blood Count 3.46 10^6 /uL (4.18-5.48); Red Cell Distribution Width 17 % (10-15); White Blood Count 5.8 10^3/uL (3.5-10.8)
[2019-07-10 10:01] LABS: ABS Lymphocytes 0.9 10^3/ul (1.0-4.8); ABS Monocytes 1.1 10^3/ul (0-0.8); ABS Neutrophils 3.7 10^3/ul (1.5-7.7); Eosinophil % 0.2 %; Lymphocyte % 16.5 %; Nucleated Red Blood Cells % 0.2
[2019-07-10 10:09] LABS: Activated Partial Thrombo Time 30.5 seconds (26.0-38.0); Fibrinogen 904.7 mg/dL (110.8-404.3); INR 1.65 (0.82-1.09)
[2019-07-10 10:15] LABS: ALT 20 U/L (7-52); AST 18 U/L (13-39); Albumin 3.4 g/dL (3.2-5.2); Albumin/Globulin Ratio 1.1 (1-3); Alkaline Phosphatase 82 U/L (34-104); Anion Gap 10 mmol/L (2-11); BUN/Creatinine Ratio 18.3 (8-20); Blood Urea Nitrogen 15 mg/dL (6-24); C Reactive Protein 398.93 mg/L (<8.01); CO2 Carbon Dioxide 32 mmol/L (22-32); Calcium 8.7 mg/dL (8.6-10.3); Chloride 94 mmol/L (101-111); EGFR African American 110.2 (>60); EGFR Non-African American 91.1 (>60); Glucose 99 mg/dL (70-100); Potassium 3.5 mmol/L (3.5-5.0); Sodium 136 mmol/L (135-145); Total Protein 6.4 g/dL (6.4-8.9)
[2019-07-10 10:23] LABS: Troponin I 0.03 ng/mL (<0.03)
[2019-07-10] MEDS ORDERED: methylPREDNISolone 125 MG* 2 ML VIAL IV ONE (10:28)
[2019-07-10] MEDS ORDERED: Albuterol/Ipratropium NEB.SOL* Albuterol 2.5 MG/Ipratropium 0.5 MG 3 ML INH ONE (10:28)
[2019-07-10] MEDS ORDERED: Levofloxacin 750 MG IVPREMIX(* 750 MG/150 ML BAG IVPB ONE (10:31)
[2019-07-10 11:15] LABS: Erythrocyte Sed Rate > 120 mm/Hr (0-19)
[2019-07-10] MEDS ORDERED: Tiotropium Brom/Olodaterol MDI INH PRN (11:42)
[2019-07-10] MEDS ORDERED: Ondansetron ODT TAB* 4 MG PO PRN (11:42)
[2019-07-10] MEDS ORDERED: Levalbuterol 0.63MG/3ML NEB* UNIT OF USE INH PRN (11:42)
[2019-07-10] MEDS ORDERED: Zosyn per Pharmacy* NOTE FOLLOW UP SCH (12:00)
[2019-07-10 13:15] LABS: Influenza A Molecular NEGATIVE (Negative); Influenza B Molecular NEGATIVE (Negative)
[2019-07-10] MEDS ORDERED: Sodium Chloride(INHALANT) 3%* 4 ML NEB.SOLN INH PRN (13:34)
[2019-07-10] MEDS: HYDROcodone/ACETAMIN 5-325 MG* 1 TAB PO PRN ×3 (13:39→22:26)
--- NOTE | 2019-07-10 13:53 | HP ---
CC: Dr. Miller; Dr. Sullivan; Dr. Medrano * HISTORY AND PHYSICAL: DATE OF ADMISSION: 07/10/19 TIME OF EVALUATION: 11:20 a.m. PRIMARY CARE PROVIDER: Dr. Miller. ONCOLOGIST: Dr. Sullivan. WATER SERVER: Dr. Medrano. CHIEF COMPLAINT: Shortness of breath. HISTORY OF PRESENT ILLNESS: Mr. Patel is a 79-year-old male with a past medical history of metastatic lung adenocarcinoma, undergoing chemotherapy; COPD , on home O2; obstructive sleep apnea; atrial flutter; hypertension; hyperlipidemia, who presents to the emergency room with complaints of shortness of breath. The patient was [place] [facility] [place] with COPD exacerbation secondary to right lower lobe community-acquired pneumonia. He was treated with Zosyn, steroids, and bronchodilators with good response and he was discharged home on 06/11/19. The patient states that he was feeling well at the time of discharge and he continued to feel well for about a week, but after that his shortness of breath has started to return. He states that he received chemotherapy as scheduled after his discharge and he is actually scheduled to see Dr. Sullivan this coming week to further discuss his treatment. He states that the shortness of breath has become progressively worse and yesterday he had "a terrible night." The shortness of breath has become severe. He has a productive cough with large amount of greenish sputum. The describes that he was complaining of chills, but as far as they know the patient did not have a fever. He denies nausea, vomiting, diarrhea, chest pain , palpitations, or other complaints. PAST MEDICAL HISTORY: 1. Metastatic lung adenocarcinoma with right hilar, paratracheal and subcarinal adenopathy in August 2017 confirmed by biopsy. The patient was treated with chemotherapy and in January 2019 PET scan showed increased soft tissue mass in the right perihilar region as well as increased uptake to newly the lesions confirmed by biopsy to be adenocarcinoma. Chemotherapy was then resumed. 2. COPD. 3. Obstructive sleep apnea. 4. Obesity with a BMI of 30. 5. Atrial flutter. 6. Hypertension. 7. Hyperlipidemia. PAST SURGICAL HISTORY: 1. Status post cholecystectomy in 2014. 2. Status post left hip replacement in 2011. 3. Implant for erectile dysfunction in 1998. MEDICATION LIST: 1. Amoxicillin 2000 mg p.o. 1 hour before dental procedures. 2. Apixaban 5 mg p.o. b.i.d. 3. Atorvastatin 10 mg p.o. daily. 4. Cardizem CD 240 mg p.o. daily. 5. Escitalopram 20 mg p.o. daily. 6. Finasteride 5 mg p.o. daily. 7. Flecainide 75 mg p.o. b.i.d. 8. Gabapentin 900 mg p.o. t.i.d. 9. Hydrocodone/acetaminophen 5/325 mg 1 to 2 tablets p.o. q. 4 to 6 hours p.r.n. pain. 10. Ipratropium 0.5 mg nebulized b.i.d. 11. Levalbuterol 0.63 mg inhaled q.12 hours p.r.n. shortness of breath. 12. Omeprazole 20 mg p.o. at bedtime. 13. Ondansetron ODT 4 mg p.o. q.4 hours p.r.n. nausea. 14. Prednisone 10 mg p.o. daily. 15. Anoro 62.5/25 one puff inhaled daily. 16. Zolpidem 5 mg p.o. at bedtime as needed for insomnia. ALLERGIES: No known drug allergies. SOCIAL HISTORY: The patient was a smoker 2 packs per day for 42 years and he quit 14 years ago. He occasionally drinks wine. There is no history of drug use. Surrogate decision maker is his , Amanda Patel, phone number is [phone]. REVIEW OF SYSTEMS: A 14-point review of systems was performed and all the pertinent negative and positive findings are in the HPI. PHYSICAL EXAMINATION GENERAL: The patient is an elderly gentleman, sitting up in the ED stretcher, in moderate respiratory distress. The patient is not able to speak in full sentences and he requires his 's assistance to finish his sentences for him. VITAL SIGNS: Temperature 97.0, heart rate is 100, respiratory rate is 32, oxygen saturation is 91% on 6 L nasal cannula, blood pressure is 152/75. HEENT: Pupils are equal. Moist mucous membranes. CHEST: Breath sounds present bilaterally with scattered wheezing and severely diminished on the right. The patient has accessory muscle use including abdominal and intercostal muscles. There is no nasal flaring at this point. CVS: Normal S1, S2. Irregularly irregular. Tachycardic. ABDOMEN: Obese, soft, nontender, nondistended. Bowel sounds are present. EXTREMITIES: No edema. NEURO: He is alert and oriented x3. Able to move all 4 extremities. DIAGNOSTIC STUDIES/LAB DATA: The patient had a CBC that showed a WBC of 5.8, hemoglobin 10.3, hematocrit of 30, platelets of 223 with 63% neutrophils. ESR is greater than 120. INR is 1.65. Chemistry showed a sodium of 136, potassium of 3.5, chloride of 94, bicarb of 32, anion gap of 10, BUN of 15, creatinine of 0.82, glucose of 99, lactic acid is 1.5, calcium 8.7. LFTs showed total bilirubin of 0.8, AST of 18, ALT of 20, alk phos of 82. Troponin 0.03, CRP 398 , BNP is 129. Chest x-ray shows increased consolidation in the peripheral right middle lung zone and known right perihilar mass. I also think the patient has decreased volume of his right lung and there is decreased aeration on the right. There is mediastinal shift to the right and compared to his prior one from his admission in June, I believe this one looks worse. EKG done on 07/10/19 at 9:59 a.m. shows atrial fibrillation at 88 beats per minute with poor baseline and prolonged QT. ASSESSMENT AND PLAN: Mr. Patel is a 79-year-old male with a past medical history of metastatic lung adenocarcinoma, undergoing chemotherapy; atrial fibrillation; hypertension; hyperlipidemia, who presented to the emergency room with complaints of shortness of breath, found to have acute on chronic hypoxemic respiratory failure secondary to pneumonia and partial right lung collapse. 1. Acute on chronic hypoxemic respiratory failure. Multifactorial in the setting of lung cancer, chronic obstructive pulmonary disease, pneumonia, and lung collapse. The patient will be admitted to the intensive care unit as his increased work of breathing at this time will require Vapotherm. 2. Partial right lung collapse/pneumonia. The patient was admitted in June with pneumonia and he states that he had symptomatic improvement at this time, but a week after discharge he started to slowly get short of breath again. At this point, I believe the patient has a partial right lung collapse maybe by tumor or mucus plugging by secretions causing a postobstructive pneumonia. The patient will be continued on Zosyn and I requested a consultation with Dr. Medrano to request her opinion regarding bronchoscopy. The patient will be continued on bronchodilators and those will be delivered via MetaNeb. Blood cultures were sent in the emergency room. We will request sputum cultures as well, legionella and pneumococcal antigens, and influenza A and B. I believe his major issue at this point is not infection, but probably mucus plugging with the right partial lung collapse. 3. Metastatic lung adenocarcinoma. Management will be as per Oncology. 4. Atrial fibrillation. His rate is under fair control considering his respiratory distress. We will continue diltiazem, flecainide. We will continue anticoagulation with apixaban. 5. QT prolongation. The patient's EKG shows QT prolongation. At this time, I am going to discontinue levofloxacin that had been ordered by the emergency room provider as well as his ondansetron. He will be monitored in the intensive care unit and if the QT prolongation persists we may have to adjust more medications. His potassium is borderline low at 3.5, so I will give him potassium supplementation. 6. Hypertension. It is fairly controlled. We will continue diltiazem. 7. DVT prophylaxis: The patient has a score of 5 on the DVT Prophylaxis Risk Assessment Guide and he will be continued on apixaban and I will add SCDs. 8. Code status was discussed with the patient and he confirms that he wishes to be a do not resuscitate. He also is a do not intubate, but would be agreeable with a trial of BiPAP. TIME SPENT: Approximately 65 minutes was spent with the patient and 's interview, medical records review, physical examination to complete this admission, more than half of this time was spent [id number] with the patient and coordination of care. [id number]/[facility] #: [id number] JOSE R
[2019-07-10] MEDS: KCL 10 MEQ/50 ML IVPREMIX* 10 MEQ/50 ML BAG IV SCH ×3 (13:54→16:40)
[2019-07-10] MEDS: Piperacillin/Tazobac ADVAN(*) 3.375 GM in NS 0.9% 100 ML* 100 ML IVPB SCH ×2 (14:03→21:31)
[2019-07-10] MEDS: Gabapentin CAP(*) 100 MG PO SCH ×2 (14:04→21:29)
[2019-07-10] MEDS: Levalbuterol 1.25MG/0.5ML NEB INH SCH ×3 (14:16→23:06)
[2019-07-10 14:34] LABS: Urine Appearance Clear; Urine Bilirubin Negative (Negative); Urine Blood Negative (Negative); Urine Color Yellow; Urine Glucose Negative (Negative); Urine Ketones Trace (Negative); Urine Nitrite Negative (Negative); Urine Protein Negative (Negative); Urine Specific Gravity 1.013 (1.010-1.030); Urine Urobilinogen Negative (Negative)
[2019-07-10] MEDS ORDERED: Levalbuterol 0.63MG/3ML NEB* UNIT OF USE INH SCH (15:00)
[2019-07-10] MEDS: Pantoprazole TAB * 40 MG TAB PO SCH (18:11)
[2019-07-10] MEDS: Ipratropium 0.5MG/2.5ML NEB* 0.5 MG/2.5 ML NEB.SOLN INH SCH (18:53)
--- NOTE | 2019-07-10 21:13 | CONS ---
PULMONARY CONSULTATION REPORT: DATE OF CONSULT: 07/10/19 CONSULTATION REQUESTED BY: Dr. Coles. REASON FOR CONSULT: Evaluation of hypoxemic respiratory failure. HISTORY OF PRESENT ILLNESS: The patient is a 79-year-old male known to me from prior outpatient evaluation. The patient with history of severe COPD, also with adenocarcinoma of the right lung which is metastatic and with recurrence. The patient is being treated with chemotherapy, last dose in May. The patient presents for evaluation of worsening shortness of breath and cough, productive of thick and green phlegm. The patient reports worsening symptoms over the past few days and decided coming to the ED for further evaluation. EMS found that the patient had wheezing on auscultation and crackles. He was placed on 4 L O2 as O2 saturation was at 88% and was increased to 6 L to maintain at 94%. The patient was saturating in low 90s with 6 L and was therefore placed on Vapotherm and admitted to ICU. The patient denies fevers or chills. His temperature was 99.8 when checked by EMS. The patient also reports right upper quadrant pain. Denies chest pain. The patient has been having issues with chronic cough, which is usually worse in the morning. The patient reports significantly worsening dyspnea with minimal exertion. The patient's chemotherapy for June was cancelled since he was admitted for pneumonia at that time. The patient presented with similar complaints in end of May and was diagnosed with right lower lobe pneumonia and small pleural effusion. The patient was treated with antibiotics and was discharged on . The patient is scheduled to have chemotherapy next week. Further evaluation in the emergency room revealed normocytic anemia with no drop in hemoglobin from the last one. No electrolyte abnormalities were noted. Troponin is mildly elevated at 0.03. CRP was elevated. BNP slightly elevated at 129. Influenza A and B negative. Chest x-ray performed in the emergency room was personally reviewed by me and with the patient at bedside. The patient with evidence of volume loss and dense area of consolidation into the lateral aspect of right mid lung. Compensatory hyperinflation of the left lung was noted. No appreciable pleural effusion. Slight deviation of trachea to the right side noted. The patient had CT of the chest on 06/09/19 that did not reveal any filling defects. The patient noted to have dense consolidation and narrowing of right mainstem rhonchus with consolidative changes in the mid lung and right lower lobe consistent with pneumonia. The patient also noted to have a small effusion on the right side. The patient with interval decrease in size of right hilar mass. PAST MEDICAL HISTORY: 1. Adenocarcinoma of the right lung, diagnosed in September 2017. 2. The patient found to have recurrence after course of radiation and chemo, was restarted on chemo on 05/05/19. 3. COPD. 4. Obesity. 5. Obstructive sleep apnea. 6. Atrial flutter. 7. Hypertension. 8. Coronary artery disease. 9. 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 PAST SURGICAL HISTORY: 1. Spinal cyst removal. 2. Cholecystectomy. 3. Left hip replacement. 4. Implant for erectile dysfunction. MEDICATIONS AT HOME: 1. Prednisone 10 mg daily. 2. Ambien 5 mg at bedtime. 3. Anoro one inhalation in the morning. 4. Zofran 4 mg q.4 hours p.r.n. 5. Omeprazole 20 mg in the evening. 6. Xopenex 1 unit q.12 hours p.r.n. 7. Ipratropium 1 vial inhalation b.i.d. 8. [place] 1 to 2 tablets q.4 to 6 hours p.r.n. 9. Gabapentin 100 mg p.o. t.i.d. 10. Flecainide 75 mg p.o. b.i.d. 11. Finasteride 5 mg in the morning. 12. Lexapro 20 mg in the morning. 13. Diltiazem 240 mg p.o. q.a.m. 14. Lipitor 10 mg in the morning. 15. Eliquis 5 mg p.o. b.i.d. 16. Amoxicillin 500 mg tablets, 2 g prior to dental procedure. ALLERGIES: No known drug allergies. FAMILY HISTORY: Mom with pancreatic cancer. SOCIAL HISTORY: He lives at home with his . Former smoker, quit 14 years ago, smoked 2 packs per day for 42 years. Drinks occasionally. No drug abuse. REVIEW OF SYSTEMS: All systems reviewed and as per HPI. PHYSICAL EXAM: The patient in mild distress, is tachypneic. Vital Signs: Temperature 99.3, pulse 85 beats per minute, respiratory rate anywhere between 17 to 28 per minute, O2 sat 97%, blood pressure 164/79. HEENT: Pupils equal, reactive to light. Mucous membranes moist. Lungs: Diminished air entry bilaterally, wheeze on the right side. Cardiovascular: S1, S2 present. Abdomen: Soft, nontender, nondistended. Bowel sounds present. Extremities: Normal range of motion. No edema. Neuro: Alert, awake, oriented x3. No focal deficits. Skin: No rash. DIAGNOSTIC STUDIES/LAB DATA: WBC count 5.8, hemoglobin 10.3, hematocrit 30, platelet count 223. Sodium 136, potassium 3.5, chloride 94, bicarb 32. BUN 15 , creatinine 0.82. Troponin 0.03. BNP 129. Influenza A and B negative. Chest x- ray was personally reviewed by me, evidence of volume loss on the right side with deviation of the trachea and mild deviation of mediastinum to the right. The patient with density in the right mid lung peripherally. IMPRESSION AND RECOMMENDATIONS: 79-year-old male with metastatic right lung cancer, restarted on chemotherapy, has been having complicated course recently with the recurrent pneumonias. The patient with narrowing of the right mainstem rhonchus and possible postobstructive pneumonia secondary to that. He has been having thick secretions recently. The patient is requiring high FiO2 at this time, is comfortable. The patient with interval improvement in the size of the right hilar density; however, still having issues with postobstructive pneumonias. Will try aggressive pulmonary toilet with MetaNeb, hypertonic saline, and nebulizers. The patient will be monitored closely in the ICU setting and titrate FiO2 as tolerated as clinical condition improves. If aggressive measures of pulmonary toilet fail, the patient will need bronchoscopy for clearance of mucus plugs. If it is because the endobronchial narrowing, if he is unable to get chemo due to recurrent pneumonias, radiation is an option. Will monitor closely in the ICU. Thank you for allowing me to participate in the care of your patient. Will follow up with you. Plan of care was discussed with the patient and bedside RN. I have also discussed with Dr. Coles. [id number]/[facility] #: [id number] JOSE R
[2019-07-10] MEDS: Apixaban* 5 MG TAB PO SCH (21:29)
[2019-07-10] MEDS: Flecainide TAB* 100 MG PO SCH (21:29)
[2019-07-10] MEDS: Zolpidem TAB* 5 MG PO PRN (22:26)
[2019-07-11] MEDS: Levalbuterol 1.25MG/0.5ML NEB INH SCH ×7 (03:08→23:09)
[2019-07-11] MEDS: Piperacillin/Tazobac ADVAN(*) 3.375 GM in NS 0.9% 100 ML* 100 ML IVPB SCH ×3 (05:54→21:18)
[2019-07-11] MEDS: Ipratropium 0.5MG/2.5ML NEB* 0.5 MG/2.5 ML NEB.SOLN INH SCH ×2 (06:09→18:52)
[2019-07-11 06:13] LABS: ABS Lymphocytes 0.3 10^3/ul (1.0-4.8); ABS Monocytes 0.5 10^3/ul (0-0.8); ABS Neutrophils 3.7 10^3/ul (1.5-7.7); Hematocrit 25 % (42-52); Hemoglobin 8.7 g/dL (14.0-18.0); Lymphocyte % 5.8 %; Mean Corpuscular HGB Conc 34 g/dL (31-36); Mean Corpuscular Hemoglobin 30 pg (27-31); Mean Corpuscular Volume 87 fL (80-94); Mean Platelet Volume 6.7 fL (7.4-10.4); Nucleated Red Blood Cells % 0.2; Platelet Count 197 10^3/uL (150-450); Red Blood Count 2.93 10^6 /uL (4.18-5.48); Red Cell Distribution Width 17 % (10-15); White Blood Count 4.5 10^3/uL (3.5-10.8)
[2019-07-11 06:32] LABS: BUN/Creatinine Ratio 21.1 (8-20); Calcium 8.4 mg/dL (8.6-10.3); EGFR African American 130.2 (>60); EGFR Non-African American 107.6 (>60); Potassium 3.5 mmol/L (3.5-5.0)
--- NOTE | 2019-07-11 07:28 | HP ---
CC: Dr. Miller; Dr. Sullivan; Dr. Medrano * HISTORY AND PHYSICAL: DATE OF ADMISSION: 07/10/19 TIME OF EVALUATION: 11:20 a.m. PRIMARY CARE PROVIDER: Dr. Miller. ONCOLOGIST: Dr. Sullivan. ICT ACCOUNT MANAGER: Dr. Medrano. CHIEF COMPLAINT: Shortness of breath. HISTORY OF PRESENT ILLNESS: Mr. Patel is a 79-year-old male with a past medical history of metastatic lung adenocarcinoma, undergoing chemotherapy; COPD , on home O2; obstructive sleep apnea; atrial flutter; hypertension; hyperlipidemia, who presents to the emergency room with complaints of shortness of breath. The patient was admitted to [facility] on 06/09/19 with COPD exacerbation secondary to right lower lobe community-acquired pneumonia. He was treated with Zosyn, steroids, and bronchodilators with good response and he was discharged home on 06/11/19. The patient states that he was feeling well at the time of discharge and he continued to feel well for about a week, but after that his shortness of breath has started to return. He states that he received chemotherapy as scheduled after his discharge and he is actually scheduled to see Dr. Sullivan this coming week to further discuss his treatment. He states that the shortness of breath has become progressively worse and yesterday he had "a terrible night." The shortness of breath has become severe. He has a productive cough with large amount of greenish sputum. The describes that he was complaining of chills, but as far as they know the patient did not have a fever. He denies nausea, vomiting, diarrhea, chest pain , palpitations, or other complaints. PAST MEDICAL HISTORY: 1. Metastatic lung adenocarcinoma with right hilar, paratracheal and subcarinal adenopathy in August 2017 confirmed by biopsy. The patient was treated with chemotherapy and in January 2019 PET scan showed increased soft tissue mass in the right perihilar region as well as increased uptake to newly the lesions confirmed by biopsy to be adenocarcinoma. Chemotherapy was then resumed. 2. COPD. 3. Obstructive sleep apnea. 4. Obesity with a BMI of 30. 5. Atrial flutter. 6. Hypertension. 7. Hyperlipidemia. PAST SURGICAL HISTORY: 1. Status post cholecystectomy in 2014. 2. Status post left hip replacement in 2011. 3. Implant for erectile dysfunction in 1998. MEDICATION LIST: 1. Amoxicillin 2000 mg p.o. 1 hour before dental procedures. 2. Apixaban 5 mg p.o. b.i.d. 3. Atorvastatin 10 mg p.o. daily. 4. Cardizem CD 240 mg p.o. daily. 5. Escitalopram 20 mg p.o. daily. 6. Finasteride 5 mg p.o. daily. 7. Flecainide 75 mg p.o. b.i.d. 8. Gabapentin 900 mg p.o. t.i.d. 9. Hydrocodone/acetaminophen 5/325 mg 1 to 2 tablets p.o. q. 4 to 6 hours p.r.n. pain. 10. Ipratropium 0.5 mg nebulized b.i.d. 11. Levalbuterol 0.63 mg inhaled q.12 hours p.r.n. shortness of breath. 12. Omeprazole 20 mg p.o. at bedtime. 13. Ondansetron ODT 4 mg p.o. q.4 hours p.r.n. nausea. 14. Prednisone 10 mg p.o. daily. 15. Anoro 62.5/25 one puff inhaled daily. 16. Zolpidem 5 mg p.o. at bedtime as needed for insomnia. ALLERGIES: No known drug allergies. SOCIAL HISTORY: The patient was a smoker 2 packs per day for 42 years and he quit 14 years ago. He occasionally drinks wine. There is no history of drug use. Surrogate decision maker is his , Amanda Patel, phone number is [phone]. REVIEW OF SYSTEMS: A 14-point review of systems was performed and all the pertinent negative and positive findings are in the HPI. PHYSICAL EXAMINATION GENERAL: The patient is an elderly gentleman, sitting up in the ED stretcher, in moderate respiratory distress. The patient is not able to speak in full sentences and he requires his 's assistance to finish his sentences for him. VITAL SIGNS: Temperature 97.0, heart rate is 100, respiratory rate is 32, oxygen saturation is 91% on 6 L nasal cannula, blood pressure is 152/75. HEENT: Pupils are equal. Moist mucous membranes. CHEST: Breath sounds present bilaterally with scattered wheezing and severely diminished on the right. The patient has accessory muscle use including abdominal and intercostal muscles. There is no nasal flaring at this point. CVS: Normal S1, S2. Irregularly irregular. Tachycardic. ABDOMEN: Obese, soft, nontender, nondistended. Bowel sounds are present. EXTREMITIES: No edema. NEURO: He is alert and oriented x3. Able to move all 4 extremities. DIAGNOSTIC STUDIES/LAB DATA: The patient had a CBC that showed a WBC of 5.8, hemoglobin of 10.3, hematocrit of 30, platelets of 223 with 63% neutrophils. ESR is greater than 120. INR is 1.65. Chemistry showed a sodium of 136, potassium of 3.5, chloride of 94, bicarb of 32, anion gap of 10, BUN of 15, creatinine of 0.82, glucose of 99, lactic acid is 1.5, calcium is 8.7. LFTs showed total bilirubin of 0.8, AST of 18, ALT of 20, alk phos of 82. Troponin is 0.03, CRP is 398, BNP is 129. Chest x-ray shows increased consolidation in the peripheral right middle lung zone and known right perihilar mass. I also think the patient has decreased volume of his right lung and there is decreased aeration on the right. There is mediastinal shift to the right and compared to his prior one from his admission in June, I believe this one looks worse. EKG done on 07/10/19 at 9:59 a.m. shows atrial fibrillation at 88 beats per minute with poor baseline and prolonged QT. ASSESSMENT AND PLAN: Mr. Patel is a 79-year-old male with a past medical history of metastatic lung adenocarcinoma, undergoing chemotherapy; atrial fibrillation; hypertension; hyperlipidemia, who presented to the emergency room with complaints of shortness of breath, found to have acute on chronic hypoxemic respiratory failure secondary to pneumonia and partial right lung collapse. 1. Acute on chronic hypoxemic respiratory failure. Multifactorial in the setting of lung cancer, chronic obstructive pulmonary disease, pneumonia, and lung collapse. The patient will be admitted to the intensive care unit as his increased work of breathing at this time will require Vapotherm. 2. Partial right lung collapse/pneumonia. The patient was admitted in June with pneumonia and he states that he had symptomatic improvement at this time, but a week after discharge he started to slowly get short of breath again. At this point, I believe the patient has a partial right lung collapse maybe by tumor or mucus plugging by secretions causing a postobstructive pneumonia. The patient will be continued on Zosyn and I requested a consultation with Dr. Medrano to request her opinion regarding bronchoscopy. The patient will be continued on bronchodilators and those will be delivered via [employer]. Blood cultures were sent in the emergency room. We will request sputum cultures as well, legionella and pneumococcal antigens, and influenza A and B. I believe his major issue at this point is not infection, but probably mucus plugging with the right partial lung collapse. 3. Metastatic lung adenocarcinoma. Management will be as per Oncology. 4. Atrial fibrillation. His rate is under fair control considering his respiratory distress. We will continue diltiazem, flecainide. We will continue anticoagulation with apixaban. 5. QT prolongation. The patient's EKG shows QT prolongation. At this time, I am going to discontinue levofloxacin that had been ordered by the emergency room provider as well as his ondansetron. He will be monitored in the intensive care unit and if the QT prolongation persists we may have to adjust more medications. His potassium is borderline low at 3.5, so I will give him potassium supplementation. 6. Hypertension. It is fairly controlled. We will continue diltiazem. 7. DVT prophylaxis: The patient has a score of 5 on the DVT Prophylaxis Risk Assessment Guide and he will be continued on apixaban and I will add SCDs. 8. Code status was discussed with the patient and he confirms that he wishes to be a do not resuscitate. He also is a do not intubate, but would be agreeable with a trial of BiPAP. TIME SPENT: Approximately 65 minutes was spent with the patient and 's interview, medical records review, physical examination to complete this admission, more than half of this time was spent [id number] with the patient and coordination of care. [id number]/[facility] #: [id number] JOSE R
[2019-07-11] MEDS: Atorvastatin* 10 MG TAB PO SCH (08:33)
[2019-07-11] MEDS: Gabapentin CAP(*) 100 MG PO SCH ×3 (08:34→21:14)
[2019-07-11] MEDS: Flecainide TAB* 100 MG PO SCH ×2 (08:34→21:17)
[2019-07-11] MEDS: Escitalopram * 20 MG TABLET PO SCH (08:34)
[2019-07-11] MEDS: Apixaban* 5 MG TAB PO SCH ×2 (08:35→21:14)
[2019-07-11] MEDS: Finasteride TAB* 5 MG PO SCH (08:35)
[2019-07-11] MEDS ORDERED: Diltiazem CD CAP* 180 MG PO SCH (09:00)
[2019-07-11] MEDS: Diltiazem CD CAP* 240 MG PO SCH (09:11)
--- NOTE | 2019-07-11 11:39 | PN ---
Date of Service: 07/11/19 - HD 2 Critical Care Services: 79 yo M with PMH including known stage 3 lung cancer treated with chemo and radiation, COPD, pAF, HTN, HLD, BPH, GERD. He presented to the ED on 07/10 with shortness of breath x 1 day. Per patient he tried his inhaler twice without relief. On EMS evaluation noted to have wheezing, improving to crackles after 4L NC O2 initiated. SpO2 intially 88, improved at 94% on O2. Temp 99.8F. Per patient he has had a productive cought with greenish-yellow sputum and RUQ pain. Treated in May 2019 for pneumonia with Amoxicillin. On evaluation in ED, pt noted to be in mild acute respiratory distress. Lung exam with diffuse bilateral crackles, tachypnea, speaking in short sentences. No wheezing noted. Heart rate irregular. Otherwise within normal limits. WBC 4.5, CXR with increased consolidation in peripheral right middle lung zone and known right perihilar mass. Started on steriods and bronchodilators. 07/10: Admitted to medical services. Started on Zosyn. Pulmonology consulted. 07/11: No overnight events. Work of breathing improved. FiO2 decreased. Vital Signs: Temp Pulse Resp BP SpO2 FiO2 97.6 F 103 15 144/81 95 35 07/11/19 07:56 07/11/19 11:02 07/11/19 11:02 07/11/19 10:00 07/11/19 11:02 07/11 11:02 Physical Exam: Gen:resting comfortably HEENT: NC in place Lungs: nonlabored Cardiac: RRR Abdomen: nondistended Extremities: moving equally Neuro: alert, oriented Fluid Balance (Past 24 Hours): I= O= Net Intake & Output 07/09/19 07/10/19 07/11/19 07/12/19 06:59 06:59 06:59 06:59 Intake Total 1041 300 Output Total 225 0 Balance 816 300 Weight 83 lb 4.8 oz 182 lb 15.739 oz Intake: IV Fluids 490 NS (0.9%) 390 IVPB 401 ABX - ZOSYN 216 KCl 185 Oral 150 300 Output: Urine 225 0 Huggins 0 Other: Estimated Void Large # Voids 1 Labs: Laboratory Results - last 24 hr 07/10/19 07/10/19 07/10/19 09:50 12:50 14:15 WBC 5.8 RBC 3.46 L Hgb 10.3 L Hct 30 L MCV 87 MCH 30 MCHC 34 RDW 17 H Plt Count 223 MPV 6.7 L Neut % (Auto) 63.6 Lymph % (Auto) 16.5 [place] % (Auto) 19.5 Eos % (Auto) 0.2 Baso % (Auto) 0.2 Absolute Neuts (auto) 3.7 Absolute Lymphs (auto) 0.9 L Absolute Monos (auto) 1.1 H Absolute Eos (auto) 0.0 Absolute Basos (auto) 0.0 Absolute Nucleated RBC 0.0 Nucleated RBC % 0.2 ESR > 120 H Sodium Potassium Chloride Carbon Dioxide Anion Gap BUN Creatinine Est GFR ( Amer) Est GFR (Non-Af Amer) BUN/Creatinine Ratio Glucose Lactic Acid Calcium Urine Color Yellow Urine Appearance Clear Urine pH 5.0 Ur Specific [place] 1.013 Urine Protein Negative Urine Ketones Trace A Urine Blood Negative Urine Nitrate Negative Urine Bilirubin Negative Urine Urobilinogen Negative Ur Leukocyte Esterase Negative Urine Glucose Negative Influenza A (Rapid) Negative Influenza B (Rapid) Negative 07/10/19 07/11/19 07/11/19 15:30 06:00 06:00 WBC 4.5 RBC 2.93 L Hgb 8.7 L Hct 25 L MCV 87 MCH 30 MCHC 34 RDW 17 H Plt Count 197 MPV 6.7 L Neut % (Auto) 82.3 Lymph % (Auto) 5.8 [place] % (Auto) 11.9 Eos % (Auto) 0.0 Baso % (Auto) 0.0 Absolute Neuts (auto) 3.7 Absolute Lymphs (auto) 0.3 L Absolute Monos (auto) 0.5 Absolute Eos (auto) 0.0 Absolute Basos (auto) 0.0 Absolute Nucleated RBC 0.0 Nucleated RBC % 0.2 ESR Sodium 141 Potassium 3.5 Chloride 101 Carbon Dioxide 33 H Anion Gap 7 BUN 15 Creatinine 0.71 Est GFR ( Amer) 130.2 Est GFR (Non-Af Amer) 107.6 BUN/Creatinine Ratio 21.1 H Glucose 154 H Lactic Acid 0.9 Calcium 8.4 L Urine Color Urine Appearance Urine pH Ur Specific [place] Urine Protein Urine Ketones Urine Blood Urine Nitrate Urine Bilirubin Urine Urobilinogen Ur Leukocyte Esterase Urine Glucose Influenza A (Rapid) Influenza B (Rapid) Studies: 07/11 CXR - Persistent right midlung consolidation. Right perihilar mass better seen on this imaging. 07/10 CXR - increased consolidation in the peripheral right middle lung zone. Known right perihilar mass. Nutrition: regular diet Impression: 79 yo M admitted on 07/10 with right middle lobe pneumonia, community acquired, in the setting of known stage 3 lung cancer, COPD and MIKEL. Initially with significant O2 requirement. Started on steriods, bronchodilators and antibiotics. Now improving. Plan: Hospital Diagnoses: #1: Community acquired pneumonia, Right middle lobe #2: Acute hypoxic respiratory failure #3: Stage 3 lung cancer #4: COPD Exacerbation Cardiovascular: (1) paroxysmal atrial fibrillation; (2) CAD; (3) HLD; (4) Essential HTN; (5) Rheumatic disease of tricuspid valve; (6) hx of atrial flutter -- HR 58-111 -- SBP 115-164 -- Telemetry -- Troponin, 07/10: 0.03 -- BNP, 07/10: 129 -- Apixaban -- Atorvastatin -- Diltiazem and Flecainide Home meds: Apixaban, Atorvastatin, Cardizem, Flecainide Pulmonary: (1) Acute hypoxic respiratory failure; (2) Community acquired pneumonia; (3) COPD exacerbation; (4) Asthma; (5) MIKEL; (6) Stage 3 lung cancer on chemo and radiation; (7) Former smoker -- RR 15-38 -- sats 93-100 on Vapotherm -- Vapotherm: flow 35 LPM down from 40, FiO2 35% down from 60 -- CXR: RML consolidation. Known right perihilar mass -- Ipatoprium & Levalbuterol -- Tiotropium bromide/Olodaterol -- Steriods and antibiotics for pneumonia & COPD exacerbation Home meds: nocturnal CPAP, 3L NC O2 during day & 4L at night, Ipatoprium, Levalbuterol, Anoro Gastrointestinal: (1) GERD; (2) hx of pancreatitis -- LFTs within normal limits -- diet: general -- bowel regimen: None -- ulcer prophylaxis: Pantoprazole Home meds: Omeprazole, Ondansetron ODT Endocrine: No acute issues -- monitor BGs -- Methyprednisolone Home meds: Prednisone Renal: (1) BPH -- UOP: voiding -- Cr 0.71 from 0.82 -- Lytes Na 141 from 136 K 3.5 Ca 8.4, replace Mag ordered with AM labs Phos ordered with AM Labs -- Finasteride Home meds: Finasteride Infectious disease: (1) Sepsis; (2) Community acquired pneumonia -- Tmax 99.3 -- WBC 4.5 from 5.8 -- CRP 398.93, high -- ESR, >120, high -- Micro 12/1 Legionella negative Strep pneumo negative MRSA negative blood No growth to date influenza A&B negative -- ABX Zosyn Home meds: None Neurologic: (1) chronic anxiety; (2) Hx of panic disorder -- Lexapro -- gabapentin -- Hydrocodone/acetaminophen -- Ambien -- PT Home meds: Lexapro, Gabapentin, Hydrocodone/acetaminophen, Ambien Hematological: (1) anemia; (2) chronic anticoagulation -- Hgb 8.7 from 10.3, no signs of bleeding, likely hemodilutional -- Plt 197 from 223 -- Coags INR 1.65 PTT 30.5 Fibrinogen 904.7, high -- DVT prophylaxis: Apixaban Home meds: Apixaban Metabolic: No acute issues -- Lactic acid 0.9 from 1.5 Home meds: None Other: No acute issues Home meds: None Deep vein thrombosis prophylaxis: Apixaban Dietary: Pantoprazole Condition: critical Prognosis: good Code status: DNR Disposition: continue ICU care while on vapotherm and daughter updated at bedside regarding CT findings and plan of care Cumulative time spent in the care of this patient (excluding any procedure time) : at least 60 minutes. Patient care included clinical interview (with patient and/or family), bedside exam of the patient, review of labs, x-rays, and other ancillary data, coordination of (respiratory, nursing care, review of patient's records, discussion regarding patients management with involved consultants, primary physician, pharmacists, and other healthcare personnel (dietary, case management , physical/occupational therapy etc.) Critical Care Time: 60
--- NOTE | 2019-07-11 11:54 | PN ---
Progress Note - Progress Note Date of Service: 07/11/19 SOAP: Subjective: [Admitted yesterday with marked dyspnea for post obstructive PNA v compressive atelectasis with bronchial obstruction. He has been stable on Vapotherm overnight and reports feeling markedly better today than he did yesterday. Little cough. No dyspnea at rest. ] Objective: [ Vital Signs: Temp Pulse Resp BP Pulse Ox 97.6 F 103 15 144/81 95 07/11/19 07:56 07/11/19 11:02 07/11/19 11:02 07/11/19 10:00 07/11/19 11:02 Hydrocodone Bitart/Acetaminophen ([place] 5-325 Tab*) 1 tab PO Q4H PRN PRN Reason: PAIN - MODERATE Last Admin: 07/10/19 22:26 Dose: 1 tab Apixaban (Eliquis*) 5 mg PO BID [facility] Last Admin: 07/11/19 08:35 Dose: 5 mg Atorvastatin Calcium (Lipitor*) 10 mg PO QAM [facility] Last Admin: 07/11/19 08:33 Dose: 10 mg Diltiazem HCl (Cardizem Cd Cap*) 240 mg PO QAM [facility] Last Admin: 07/11/19 09:11 Dose: 240 mg Escitalopram Oxalate (Lexapro *) 20 mg PO QAM [facility] Last Admin: 07/11/19 08:34 Dose: 20 mg Finasteride (Proscar Tab*) 5 mg PO QAM [facility] Last Admin: 07/11/19 08:35 Dose: 5 mg Flecainide Acetate (Tambocor Tab*) 75 mg PO BID [facility] Last Admin: 07/11/19 08:34 Dose: 75 mg Gabapentin (Neurontin Cap(*)) 100 mg PO TID [facility] Last Admin: 07/11/19 08:34 Dose: 100 mg Piperacillin Sod/Tazobactam (Sod 3.375 gm/ Sodium Chloride) 100 mls @ 25 mls/ hr IVPB Q8H [facility] Last Admin: 07/11/19 05:54 Dose: 25 mls/hr Ipratropium [place] (Atrovent 0.5 Mg Neb.Hina*) 0.5 mg INH RT.BID [facility] Last Admin: 07/11/19 06:09 Dose: 0.5 mg Levalbuterol HCl (Xopenex 1.25 Mg/0.5 Ml Neb.Hina*) 1.25 mg INH [id number] AWAKE [facility] Last Admin: 07/11/19 10:57 Dose: 1.25 mg Methylprednisolone Sodium Succinate (Solu-Medrol 125mg *) 60 mg IV DAILY [facility] Pantoprazole Sodium (Protonix Tab*) 40 mg PO QPM [facility] Last Admin: 07/10/19 18:11 Dose: 40 mg Pharmacy Consult (Zosyn Per Pharmacy*) 1 note FOLLOW UP .ZOSYN PER PHARMACY [facility] Sodium Chloride (Sodium Chloride(Inhalant) 3%*) 3 ml INH Q4H PRN PRN Reason: SHORTNESS OF BREATH Tiotropium [place]/Olodaterol (Stiolto Respimat Inh [place] (60 Puff)) 2 puff INH QAM PRN PRN Reason: SOB/WHEEZING Zolpidem Tartrate (Ambien Tab*) 5 mg PO BEDTIME PRN PRN Reason: SLEEP Last Admin: 07/10/19 22:26 Dose: 5 mg Laboratory Results - last 24 hr 07/10/19 07/10/19 07/10/19 12:50 14:15 15:30 WBC RBC Hgb Hct MCV MCH MCHC RDW Plt Count MPV Neut % (Auto) Lymph % (Auto) [place] % (Auto) Eos % (Auto) Baso % (Auto) Absolute Neuts (auto) Absolute Lymphs (auto) Absolute Monos (auto) Absolute Eos (auto) Absolute Basos (auto) Absolute Nucleated RBC Nucleated RBC % Sodium Potassium Chloride Carbon Dioxide Anion Gap BUN Creatinine Est GFR ( Amer) Est GFR (Non-Af Amer) BUN/Creatinine Ratio Glucose Lactic Acid 0.9 Calcium Urine Color Yellow Urine Appearance Clear Urine pH 5.0 Ur Specific [place] 1.013 Urine Protein Negative Urine Ketones Trace A Urine Blood Negative Urine Nitrate Negative Urine Bilirubin Negative Urine Urobilinogen Negative Ur Leukocyte Esterase Negative Urine Glucose Negative Influenza A (Rapid) Negative Influenza B (Rapid) Negative 07/11/19 07/11/19 06:00 06:00 WBC 4.5 RBC 2.93 L Hgb 8.7 L Hct 25 L MCV 87 MCH 30 MCHC 34 RDW 17 H Plt Count 197 MPV 6.7 L Neut % (Auto) 82.3 Lymph % (Auto) 5.8 [place] % (Auto) 11.9 Eos % (Auto) 0.0 Baso % (Auto) 0.0 Absolute Neuts (auto) 3.7 Absolute Lymphs (auto) 0.3 L Absolute Monos (auto) 0.5 Absolute Eos (auto) 0.0 Absolute Basos (auto) 0.0 Absolute Nucleated RBC 0.0 Nucleated RBC % 0.2 Sodium 141 Potassium 3.5 Chloride 101 Carbon Dioxide 33 H Anion Gap 7 BUN 15 Creatinine 0.71 Est GFR ( Amer) 130.2 Est GFR (Non-Af Amer) 107.6 BUN/Creatinine Ratio 21.1 H Glucose 154 H Lactic Acid Calcium 8.4 L Urine Color Urine Appearance Urine pH Ur Specific [place] Urine Protein Urine Ketones Urine Blood Urine Nitrate Urine Bilirubin Urine Urobilinogen Ur Leukocyte Esterase Urine Glucose Influenza A (Rapid) Influenza B (Rapid) Exam: Gen: relatively well appearing 79 yo male who appears comfortable on Vapotherm HEENT: MMM CV: RRR, no m/r/g Resp: decreased breath sounds, few rhonchi diffusely with some wheeze in the RLL Abd: soft and nonTTP Ext: trace LE edema Skin: no rashes] Assessment: [This is a 79 yo male with metastatic NSCLC s/p 3 cycles carboplatin/pemetrexed/ pembrolizumab (C3D1 06/23/19) who was hospitalized last month with a PNA and COPD exacerbation. He now returns with severe dyspnea and high oxygen needs with a dense R sided consolidation v compressive atelectasis improved on Vapotherm.] Plan: [1. Hypoxemic respiratory failure, post obstructive PNA v compressive atelectasis - symptomatically improved - some improved aeration on repeat CXR today - plan CT chest to further evaluate for bronchial narrowing - cont current treatment with Vapotherm and metanebs, consider bronchoscopy if there is persistent bronchial narrowing - cont Zosyn and solumedrol - further treatment guidance per pulmonology/senior information systems architect 2. NSCLC - interval improvement noted on CT after C2 - hold C4 scheduled for later this week Dispo: requires continued ICU level stay]
[2019-07-11] MEDS ORDERED: Iohexol 300* (CONTRAST) 10 ML SDV IV ONE (12:37)
[2019-07-11] MEDS ORDERED: Pneumococcal *Vac Polyvalent 0.5 ML VIAL IM ONE (15:00)
[2019-07-11] MEDS: Pantoprazole TAB * 40 MG TAB PO SCH (17:47)
[2019-07-11] MEDS: Zolpidem TAB* 5 MG PO PRN (23:07)
[2019-07-12] MEDS: Levalbuterol 1.25MG/0.5ML NEB INH SCH ×6 (04:08→23:15)
[2019-07-12 04:13] LABS: Hematocrit 26 % (42-52); Hemoglobin 8.8 g/dL (14.0-18.0); Mean Corpuscular HGB Conc 34 g/dL (31-36); Mean Corpuscular Hemoglobin 29 pg (27-31); Mean Corpuscular Volume 86 fL (80-94); Mean Platelet Volume 6.6 fL (7.4-10.4); Platelet Count 254 10^3/uL (150-450); Red Blood Count 3.03 10^6 /uL (4.18-5.48); Red Cell Distribution Width 17 % (10-15); White Blood Count 6.9 10^3/uL (3.5-10.8)
[2019-07-12 04:40] LABS: BUN/Creatinine Ratio 24.7 (8-20); Calcium 8.8 mg/dL (8.6-10.3); EGFR African American 111.8 (>60); EGFR Non-African American 92.4 (>60); Globulin 3.1 g/dL (2-4); Potassium 3.7 mmol/L (3.5-5.0); Total Bilirubin 0.4 mg/dL (0.2-1.0); Total Protein 6.1 g/dL (6.4-8.9)
[2019-07-12 04:55] LABS: ABS Lymphocytes 0.3 10^3/ul (1.0-4.8); ABS Monocytes 0.6 10^3/ul (0-0.8); Lymphocyte % 4.2 %; Nucleated Red Blood Cells % 0.3
[2019-07-12] MEDS ORDERED: Morphine INJ* 2 MG/ML 1 ML SYRINGE (TWO MG - NEW SYRINGE VERSION) IV ONE (05:41)
[2019-07-12] MEDS: Piperacillin/Tazobac ADVAN(*) 3.375 GM in NS 0.9% 100 ML* 100 ML IVPB SCH ×3 (06:01→21:12)
[2019-07-12] MEDS: Ipratropium 0.5MG/2.5ML NEB* 0.5 MG/2.5 ML NEB.SOLN INH SCH ×2 (07:46→19:11)
[2019-07-12] MEDS ORDERED: hydrALAZINE IV* 20 MG/ML VIAL IV SLOW PU PRN (08:36)
--- NOTE | 2019-07-12 08:48 | PN ---
Date of Service: 07/12/19 - HD 3 Critical Care Services: 79 yo M with PMH including known stage 3 lung cancer treated with chemo and radiation, COPD, pAF, HTN, HLD, BPH, GERD. He presented to the ED on 07/10 with shortness of breath x 1 day. Per patient he tried his inhaler twice without relief. On EMS evaluation noted to have wheezing, improving to crackles after 4L NC O2 initiated. SpO2 intially 88, improved at 94% on O2. Temp 99.8F. Per patient he has had a productive cought with greenish-yellow sputum and RUQ pain. Treated in May 2019 for pneumonia with Amoxicillin. On evaluation in ED, pt noted to be in mild acute respiratory distress. Lung exam with diffuse bilateral crackles, tachypnea, speaking in short sentences. No wheezing noted. Heart rate irregular. Otherwise within normal limits. WBC 4.5, CXR with increased consolidation in peripheral right middle lung zone and known right perihilar mass. Started on steriods and bronchodilators. 07/10: Admitted to medical services. Started on Zosyn. Pulmonology consulted. 07/11: Work of breathing improved. FiO2 decreased. CT showed narrowed but open bronchi. Weaned off high flow to nasal cannula by noon. 07/12: No overnight events. Vital Signs: Temp Pulse Resp BP SpO2 FiO2 99.1 F 94 18 174/84 99 36 07/12/19 08:00 07/12/19 07:48 07/12/19 07:48 07/12/19 07:00 07/12/19 07:48 07/12 01:17 Physical Exam: Gen: sitting up in bed, reading HEENT: NC in place Lungs: coarse rhonci on right Cardiac: tachycardic Abdomen: soft, nontender Extremities: warm, dry Neuro: alert and oriented Fluid Balance (Past 24 Hours): I= O= Net Intake & Output 07/10/19 07/11/19 07/12/19 07/13/19 06:59 06:59 06:59 06:59 Intake Total 1041 1445 Output Total 225 650 Balance 816 795 Weight 83 lb 4.8 oz 174 lb 2.643 oz Intake: IV Fluids 490 305 ABX - ZOSYN 225 NS (0.9%) 390 80 IVPB 401 ABX - ZOSYN 216 KCl 185 Oral 150 1140 Output: Urine 225 650 Huggins 0 Other: Estimated Void Large Date of Last Bowel 07/11/19 Movement # Voids 1 1 Labs: Laboratory Results - last 24 hr 07/12/19 07/12/19 03:55 03:55 WBC 6.9 RBC 3.03 L Hgb 8.8 L Hct 26 L MCV 86 MCH 29 MCHC 34 RDW 17 H Plt Count 254 MPV 6.6 L Neut % (Auto) 86.5 Lymph % (Auto) 4.2 [place] % (Auto) 9.3 Eos % (Auto) 0.0 Baso % (Auto) 0.0 Absolute Neuts (auto) 6.0 Absolute Lymphs (auto) 0.3 L Absolute Monos (auto) 0.6 Absolute Eos (auto) 0.0 Absolute Basos (auto) 0.0 Absolute Nucleated RBC 0.0 Nucleated RBC % 0.3 Sodium 141 Potassium 3.7 Chloride 101 Carbon Dioxide 34 H Anion Gap 6 BUN 20 Creatinine 0.81 Est GFR ( Amer) 111.8 Est GFR (Non-Af Amer) 92.4 BUN/Creatinine Ratio 24.7 H Glucose 133 H Calcium 8.8 Total Bilirubin 0.40 AST 26 ALT 26 Alkaline Phosphatase 68 Total Protein 6.1 L Albumin 3.0 L Globulin 3.1 Albumin/Globulin Ratio 1.0 Studies: 07/11 CXR - Persistent right midlung consolidation. Right perihilar mass better seen on this imaging. CT chest - RML, RLL, RUL consolidation consistent with pneumonia. small right pleural effusion. small right paratrachial and hilar LN. Known hilar mass noted on films but not commented on in report. 07/10 CXR - increased consolidation in the peripheral right middle lung zone. Known right perihilar mass Nutrition: general diet Impression: 79 yo M admitted on 07/10 with right middle lobe pneumonia, community acquired, in the setting of known stage 3 lung cancer, COPD and MIKEL. Initially with significant O2 requirement. Started on steriods, bronchodilators and antibiotics. Weaned off high flow 07/11. Plan: Hospital Diagnoses: #1: Community acquired pneumonia, Right middle lobe #2: Acute hypoxic respiratory failure #3: Stage 3 lung cancer #4: COPD Exacerbation Cardiovascular: (1) paroxysmal atrial fibrillation; (2) CAD; (3) HLD; (4) Essential HTN; (5) Rheumatic disease of tricuspid valve; (6) hx of atrial flutter -- HR 64-111 -- SBP 123-187 -- Telemetry -- Apixaban -- Atorvastatin -- Diltiazem and Flecainide -- PRN Hydralazine for goal SBP < 160 Home meds: Apixaban, Atorvastatin, Cardizem, Flecainide Pulmonary: (1) Acute hypoxic respiratory failure; (2) Community acquired pneumonia; (3) COPD exacerbation; (4) Asthma; (5) MIKEL; (6) Stage 3 lung cancer on chemo and radiation; (7) Former smoker -- RR 21-34 -- sats 87-100 on 4.5L NC -- Ipatoprium & Levalbuterol -- Tiotropium bromide/Olodaterol -- Steriods and antibiotics for pneumonia & COPD exacerbation Home meds: nocturnal CPAP, 3L NC O2 during day & 4L at night, Ipatoprium, Levalbuterol, Anoro Gastrointestinal: (1) GERD; (2) hx of pancreatitis -- LFTs within normal limits -- diet: general -- bowel regimen: None -- ulcer prophylaxis: Pantoprazole Home meds: Omeprazole, Ondansetron ODT Endocrine: No acute issues -- monitor BGs -- Methyprednisolone Home meds: Prednisone Renal: (1) BPH -- UOP: voiding -- Cr 0.81 from 0.71 -- Lytes Na 141 from 141 K 3.7 Ca 8.8 Mag ordered Phos ordered -- Finasteride Home meds: Finasteride Infectious disease: (1) Sepsis, improving; (2) Community acquired pneumonia, right middle lobe primarily and some involvement in RLL and RUL -- Tmax 99.1 -- WBC 6.9 form 4 -- Micro 12/ Legionella negative Strep pneumo negative MRSA negative blood No growth to date influenza A&B negative -- ABX Zosyn Home meds: None Neurologic: (1) chronic anxiety; (2) Hx of panic disorder -- Lexapro -- gabapentin -- Hydrocodone/acetaminophen -- Ambien -- PT Home meds: Lexapro, Gabapentin, Hydrocodone/acetaminophen, Ambien Hematological: (1) anemia; (2) chronic anticoagulation -- Hgb 8.8 from 8.7 -- Plt 254 form 197 -- DVT prophylaxis: Apixaban Home meds: Apixaban Metabolic: No acute issues Home meds: None Other: No acute issues Home meds: None Deep vein thrombosis prophylaxis: Apixaban Dietary: Pantoprazole Condition: serious Prognosis: good Code status: DNR Disposition: transfer to floor Cumulative time spent in the care of this patient (excluding any procedure time) : at least 40 minutes. Patient care included clinical interview (with patient and/or family), bedside exam of the patient, review of labs, x-rays, and other ancillary data, coordination of (respiratory, nursing care, review of patient's records, discussion regarding patients management with involved consultants, primary physician, pharmacists, and other healthcare personnel (dietary, case management , physical/occupational therapy etc.) Critical Care Time: none
[2019-07-12] MEDS: Apixaban* 5 MG TAB PO SCH ×2 (09:04→21:07)
[2019-07-12] MEDS: Diltiazem CD CAP* 240 MG PO SCH (09:04)
[2019-07-12] MEDS: Atorvastatin* 10 MG TAB PO SCH (09:05)
[2019-07-12] MEDS: Finasteride TAB* 5 MG PO SCH (09:05)
[2019-07-12] MEDS: Gabapentin CAP(*) 100 MG PO SCH ×3 (09:05→21:07)
[2019-07-12] MEDS: Flecainide TAB* 100 MG PO SCH ×2 (09:05→21:07)
[2019-07-12] MEDS: Escitalopram * 20 MG TABLET PO SCH (09:05)
[2019-07-12] MEDS: methylPREDNISolone 125 MG* 2 ML VIAL IV SCH (09:08)
[2019-07-12] MEDS: HYDROcodone/ACETAMIN 5-325 MG* 1 TAB PO PRN ×3 (10:18→21:11)
--- OUTSIDE RECORDS SUMMARY | 2019-07-12 16:00 | XMS REPORT | Continuity of Care Document ---
:1940 External Reference #:[id number] Author Name Shiva Arias Care Team Providers Name Role Phone Aj Miller MD - Family Medicine Care Team Information Nurse Discharge [phone] Problems Active Problems Provider Date Atrial fibrillation [...] Medications SIG Qnty Indications Ordering Date Provider Levaquin 1 tab daily for 7tabs Melissa Marcela, 06/08/2019 500mg 7days MD Tablets Cardizem CD 1 by mouth every 30caps I10 Qutaybeh S. 11/10/2018 240mg day Jose Alfredo Hanna Caps ER 24HR Levalbuterol HCL Inhale The 180units [facility], 09/15/2018 Contents Of 1 MD 1.25mg/3ML Nebulizer Vial Via Nebulizer Every 12 Hours as Needed Prednisone 1 tab daily 60tabs J44.9 [facility], 09/07/2018 10mg MD Tablets Anoro Ellipta [facility]hale [facility] puff [facility] Mouth Every Day 62.5-25mcg/Inh Aerosol Ipratropium [place] 1 vial in 187.5ml [facility], 10/23/2017 nebulizer 2 times 0.02% Solution a day Oxygen 3lpm as directed 1units Unknown 12/12/2015 Misc Amoxicillin 4 tablets 1 hour 16caps Ángel Dawson M.D. 07/16/2012 500mg before dental Capsules work Lipitor 1 PO qd 30tabs Qutaybeh S. 07/23/2006 10mg Tablets Jose Alfredo Hanna Ondansetron HCL Take 1 Tablet By Unknown 4mg Mouth Every 4 Tablets Hours as Needed Gabapentin Take 1-2 Capsule Unknown 100mg By Mouth Three Capsules Times Daily as needed Eliquis 1 by mouth twice Unknown 5mg [...] 68 mmHg ule reg cuff Results Test Acquired Facility Test Result H/L Range Note Date Lung Cancer 03/30/2019 [facility] LNGPR TNP () 1 Targeted Gene [address] Interpretation Panel [place], [place] [id number] [phone] Platelet 03/30/2019 [facility] Platelet Count 245 Normal 150- [address] 10^3/[place] [address] [phone] Mean Platelet Volume 6.1 fL Low 7.4-10.4 Inr/Protime 03/30/2019 [facility] Inr 1.04 Normal 0.82-1.[address] [place], [place] [id number] [phone] Laboratory test 03/30/2019 [facility] Partial 27.6 Normal 26.0 -38.[address] [place] [address] Time PTT [phone] 1 Lung Panel with Rearrangement Tumor was cancelled on 04/15/2019 at 16:46; Duplicate test request. Test Performed by: [facility] - [address] [address] Water Commissioner: Fabrice David M.D. Ph.D.; [facility]# [id number] 2 Standard intensity warfarin therapeutic range: 2.0-3.0 High intensity warfarin therapeutic range: 2.5-3.5 Procedures Description No Information Available Medical Devices Description No Information Available Encounters Type Date Location Provider Dx Diagnosis Office Visit 04/12/2019 Pul[facility]ology And Melissa Medrano, J44.9 Chronic obstructive 1:45p Sleep Services Of pulmonary disease, [facility] unspecified G47.33 Obstructive sleep apnea (adult) (pediatric) C34.90 Malignant neoplasm of unsp part of unsp bronchus or lung R09.02 Hypoxemia Assessments Date Code Description Provider 04/12/2019 J44.9 Chronic obstructive pulmonary disease, Melissa Medrano MD unspecified 04/12/2019 G47.33 Obstructive sleep apnea (adult) (pediatric) Melissa Medrano MD 04/12/2019 C34.90 Malignant neoplasm of unspecified part of Melissa Medrano MD unspecified bronchus or lung 04/12/2019 R09.02 Hypoxemia Melissa Medrano MD Plan of Treatment Future Appointment(s):10/25/2019 1:45 pm - Melissa Medrano MD at [facility]12/01/2018 - Nurse Visit [id number] Essential (primary) hypertension Functional Status Description No Information Available Mental Status Description No Information Available Referrals Description No Information Available
--- NOTE | 2019-07-12 16:37 | PN ---
Progress Note - Progress Note Date of Service: 07/12/19 - Pulm f/u note Note: Pt seen and examined at bedside this afternoon. pt reports feeling better. SOB is slightly improved. Able to expectorate phleghm, metanebs are helpful. FiO2 requirements have decreased Active Medications Generic Name Dose Route Start Last Admin Trade Name Freq PRN Reason Stop Dose Admin Hydrocodone Bitart/Acetaminophen 1 tab 07/10/19 11:42 07/12/19 10:18 [place] 5-325 Tab* PO 1 tab Q4H PRN Administration PAIN - MODERATE Apixaban 5 mg 07/10/19 21:00 07/12/19 09:04 Eliquis* PO 5 mg BID STORMY Administration Atorvastatin Calcium 10 mg 07/11/19 09:00 07/12/19 09:05 Lipitor* PO 10 mg QAM STORMY Administration Diltiazem HCl 240 mg 07/11/19 09:00 07/12/19 09:04 Cardizem Cd Cap* PO 240 mg QAM STORMY Administration Escitalopram Oxalate 20 mg 07/11/19 09:00 07/12/19 09:05 Lexapro * PO 20 mg QAM STORMY Administration Finasteride 5 mg 07/11/19 09:00 07/12/19 09:05 Proscar Tab* PO 5 mg QAM STORMY Administration Flecainide Acetate 75 mg 07/10/19 21:00 07/12/19 09:05 Tambocor Tab* PO 75 mg BID STORMY Administration Gabapentin 100 mg 07/10/19 14:00 07/12/19 14:20 Neurontin Cap(*) PO 100 mg TID STORMY Administration Hydralazine HCl 10 mg 07/12/19 08:36 Apresoline Iv* IV SLOW PU Q6H PRN SYSTOLIC BP GREATER THAN: Piperacillin Sod/Tazobactam 100 mls @ 25 mls/hr 07/10/19 14:00 07/12/19 14:20 Sod 3.375 gm/ Sodium Chloride IVPB 25 mls/hr Q8H STORMY Administration Ipratropium Bly 0.5 mg 07/10/19 19:00 07/12/19 07:46 Atrovent 0.5 Mg Neb.Hina* INH 0.5 mg RT.BID SOTRMY Administration Levalbuterol HCl 1.25 mg 07/10/19 15:00 07/12/19 15:01 Xopenex 1.25 Mg/0.5 Ml Neb.Hina* INH 1.25 mg [id number] AWAKE STORMY Administration Methylprednisolone Sodium Succinate 60 mg 07/12/19 09:00 07/12/19 09:08 Solu-Medrol 125mg * IV 60 mg DAILY STORMY Administration Morphine Sulfate 2 mg 07/12/19 10:38 Morphine Inj (Syringe))* IV Q2H PRN PAIN - SEVERE Pantoprazole Sodium 40 mg 07/10/19 18:00 07/11/19 17:47 Protonix Tab* PO 40 mg QPM STORMY Administration Pharmacy Consult 1 note 07/10/19 12:00 Zosyn Per Pharmacy* FOLLOW UP .ZOSYN PER PHARMACY STORMY Sodium Chloride 3 ml 07/10/19 13:34 07/11/19 16:27 Sodium Chloride(Inhalant) 3%* INH 3 ml Q4H PRN Administration SHORTNESS OF BREATH Tiotropium Bly/Olodaterol 2 puff 07/10/19 11:42 Stiolto Respimat Inh [place] (60 Puff) INH QAM PRN SOB/WHEEZING Zolpidem Tartrate 5 mg 07/10/19 11:42 07/11/19 23:07 Ambien Tab* PO 5 mg BEDTIME PRN Administration SLEEP Vital Signs Temp Pulse Resp BP Pulse Ox 97.5 F 76 28 136/80 90 07/12/19 15:31 07/12/19 14:01 07/12/19 14:42 07/12/19 14:00 07/12/19 14:01 O/E: Pt in nAD HEENT: PERRLA, no JVD, no accessory muscle usage CVS: S1, S2+ Lungs: Dimnished air netry, wheeze+ Abd: Soft, BS+ Ext: Normal ROM Skin: No rash Neuro: No focal deficits Laboratory Results - last 24 hr 07/12/19 07/12/19 03:55 03:55 WBC 6.9 RBC 3.03 L Hgb 8.8 L Hct 26 L MCV 86 MCH 29 MCHC 34 RDW 17 H Plt Count 254 MPV 6.6 L Neut % (Auto) 86.5 Lymph % (Auto) 4.2 [place] % (Auto) 9.3 Eos % (Auto) 0.0 Baso % (Auto) 0.0 Absolute Neuts (auto) 6.0 Absolute Lymphs (auto) 0.3 L Absolute Monos (auto) 0.6 Absolute Eos (auto) 0.0 Absolute Basos (auto) 0.0 Absolute Nucleated RBC 0.0 Nucleated RBC % 0.3 Sodium 141 Potassium 3.7 Chloride 101 Carbon Dioxide 34 H Anion Gap 6 BUN 20 Creatinine 0.81 Est GFR ( Amer) 111.8 Est GFR (Non-Af Amer) 92.4 BUN/Creatinine Ratio 24.7 H Glucose 133 H Calcium 8.8 Total Bilirubin 0.40 AST 26 ALT 26 Alkaline Phosphatase 68 Total Protein 6.1 L Albumin 3.0 L Globulin 3.1 Albumin/Globulin Ratio 1.0 I/R: 79 y o m with COPD, chronic hypoxic resp failure, metastatic and recurrnet lung cancer on chemo with recurrent post obstructive PNA`s on right. Pt with narrrowing of rt main stem bronchus from hilar density and superimposed fibrosis with post obstructive PNA He had recurrence in setting of immunocompromized state while on chemo Pt with atlectasis of RMl and air space opacities involving rt upper lobe and RLL. Also with concern for lymphangetic spread Pt had improvement with mucus clearance and is requiring lower FiO2 c/w nebs c/w abx If hilar density doesnot shrink, will need stent on rt side Bronchoscopy would help however benefit might be short lived until secretions pool back again
[2019-07-12] MEDS: Pantoprazole TAB * 40 MG TAB PO SCH (17:22)
[2019-07-13] MEDS: Levalbuterol 1.25MG/0.5ML NEB INH SCH ×4 (03:36→20:08)
[2019-07-13] MEDS: Piperacillin/Tazobac ADVAN(*) 3.375 GM in NS 0.9% 100 ML* 100 ML IVPB SCH ×3 (05:02→21:35)
[2019-07-13 05:22] LABS: Hematocrit 26 % (42-52); Hemoglobin 8.6 g/dL (14.0-18.0); Mean Corpuscular HGB Conc 34 g/dL (31-36); Mean Corpuscular Hemoglobin 30 pg (27-31); Mean Corpuscular Volume 87 fL (80-94); Mean Platelet Volume 6.6 fL (7.4-10.4); Platelet Count 251 10^3/uL (150-450); Red Blood Count 2.93 10^6 /uL (4.18-5.48); Red Cell Distribution Width 17 % (10-15); White Blood Count 7.3 10^3/uL (3.5-10.8)
[2019-07-13] MEDS: HYDROcodone/ACETAMIN 5-325 MG* 1 TAB PO PRN (05:42)
[2019-07-13 05:43] LABS: BUN/Creatinine Ratio 29.6 (8-20); Calcium 8.3 mg/dL (8.6-10.3); EGFR African American 130.2 (>60); EGFR Non-African American 107.6 (>60); Magnesium 1.9 mg/dL (1.9-2.7); Phosphorus 4.1 mg/dL (2.5-5.0); Potassium 4.1 mmol/L (3.5-5.0)
[2019-07-13] MEDS: Ipratropium 0.5MG/2.5ML NEB* 0.5 MG/2.5 ML NEB.SOLN INH SCH ×2 (07:20→20:09)
[2019-07-13] MEDS: Atorvastatin* 10 MG TAB PO SCH (08:20)
[2019-07-13] MEDS: Diltiazem CD CAP* 240 MG PO SCH (08:20)
[2019-07-13] MEDS: Finasteride TAB* 5 MG PO SCH (08:20)
[2019-07-13] MEDS: Flecainide TAB* 100 MG PO SCH ×2 (08:20→21:35)
[2019-07-13] MEDS: Apixaban* 5 MG TAB PO SCH ×2 (08:21→21:35)
[2019-07-13] MEDS: Escitalopram * 20 MG TABLET PO SCH (08:21)
[2019-07-13] MEDS: Gabapentin CAP(*) 100 MG PO SCH ×3 (08:21→21:35)
[2019-07-13] MEDS: methylPREDNISolone 125 MG* 2 ML VIAL IV SCH (08:22)
[2019-07-13] MEDS ORDERED: Calcium/Vitamin D TAB 250/125* TAB PO ONE (09:18)
--- NOTE | 2019-07-13 09:19 | PN ---
Date of Service: 07/13/19 - 4 Critical Care Services: 79 yo M with PMH including known stage 3 lung cancer treated with chemo and radiation, COPD, pAF, HTN, HLD, BPH, GERD. He presented to the ED on 07/10 with shortness of breath x 1 day. Per patient he tried his inhaler twice without relief. On EMS evaluation noted to have wheezing, improving to crackles after 4L NC O2 initiated. SpO2 intially 88, improved at 94% on O2. Temp 99.8F. Per patient he has had a productive cought with greenish-yellow sputum and RUQ pain. Treated in May 2019 for pneumonia with Amoxicillin. On evaluation in ED, pt noted to be in mild acute respiratory distress. Lung exam with diffuse bilateral crackles, tachypnea, speaking in short sentences. No wheezing noted. Heart rate irregular. Otherwise within normal limits. WBC 4.5, CXR with increased consolidation in peripheral right middle lung zone and known right perihilar mass. Started on steriods and bronchodilators. 07/10: Admitted to medical services. Started on Zosyn. Pulmonology consulted. 07/11: Work of breathing improved. FiO2 decreased. CT showed narrowed but open bronchi. Weaned off high flow to nasal cannula by noon. 07/12: Remains off high flow but has increased work of breathing with activity. 07/13: No overnight events. Work of breathing improved. Vital Signs: Temp Pulse Resp BP SpO2 FiO2 96.1 F 83 37 168/82 95 98 07/13/19 08:00 07/13/19 09:01 07/13/19 09:01 07/13/19 09:01 07/13/19 09:01 07/12 19:16 Physical Exam: Gen: Sitting up in chair, appears comfortable. HEENT: NC in place Lungs: Distant bilaterally but less rhonchorous than yesterday Cardiac: RRR Abdomen: soft, NTND Extremities: warm, dry, moving equally Neuro: alert and oriented. Fluid Balance (Past 24 Hours): I= O= Net Intake & Output 07/11/19 07/12/19 07/13/19 07/14/19 06:59 06:59 06:59 06:59 Intake Total 1041 1445 1075 Output Total 225 650 550 Balance 816 795 525 Weight 83 lb 4.8 oz 174 lb 2.643 oz 175 lb 11.335 oz Intake: IV Fluids 490 305 95 ABX - ZOSYN 225 0 NS (0.9%) 390 80 95 IVPB 401 100 ABX - ZOSYN 216 100 KCl 185 Oral 150 1140 880 Output: Urine 225 650 550 Huggins 0 Other: Estimated Void Large Medium Date of Last Bowel 07/11/19 06/12/19 07/13/19 Movement # Bowel Movements 1 1 Estimated Stool Amount Large # Voids 1 1 1 Labs: Laboratory Results - last 24 hr 07/13/19 07/13/19 05:00 05:00 WBC 7.3 RBC 2.93 L Hgb 8.6 L Hct 26 L MCV 87 MCH 30 MCHC 34 RDW 17 H Plt Count 251 MPV 6.6 L Sodium 145 Potassium 4.1 Chloride 103 Carbon Dioxide 37 H Anion Gap 5 BUN 21 Creatinine 0.71 Est GFR ( Amer) 130.2 Est GFR (Non-Af Amer) 107.6 BUN/Creatinine Ratio 29.6 H Glucose 134 H Calcium 8.3 L Phosphorus 4.1 Magnesium 1.9 Studies: 07/11 CXR - Persistent right midlung consolidation. Right perihilar mass better seen on this imaging. CT chest - RML, RLL, RUL consolidation consistent with pneumonia. small right pleural effusion. small right paratrachial and hilar LN. Known hilar mass noted on films but not commented on in report. 07/10 CXR - increased consolidation in the peripheral right middle lung zone. Known right perihilar mass Nutrition: general diet Impression: 79 yo M admitted on 07/10 with right middle lobe pneumonia, community acquired, in the setting of known stage 3 lung cancer, COPD and MIKEL. Initially with significant O2 requirement. Started on steriods, bronchodilators and antibiotics. Weaned off high flow 07/11. Plan: Hospital Diagnoses: #1: Community acquired pneumonia, Right middle lobe #2: Acute hypoxic respiratory failure #3: Stage 3 lung cancer #4: COPD Exacerbation Cardiovascular: (1) paroxysmal atrial fibrillation; (2) CAD; (3) HLD; (4) Essential HTN; (5) Rheumatic disease of tricuspid valve; (6) hx of atrial flutter -- HR 58-100 -- SBP 130-186 -- Telemetry -- Apixaban -- Atorvastatin -- Diltiazem and Flecainide -- PRN Hydralazine for goal SBP < 160 Home meds: Apixaban, Atorvastatin, Cardizem, Flecainide Pulmonary: (1) Acute hypoxic respiratory failure; (2) Community acquired pneumonia; (3) COPD exacerbation; (4) Asthma; (5) MIKEL; (6) Stage 3 lung cancer on chemo and radiation; (7) Former smoker -- RR 18-38 -- sats 84-100 on 4.L NC -- Ipatoprium & Levalbuterol -- Tiotropium bromide/Olodaterol -- Steriods and antibiotics for pneumonia & COPD exacerbation Home meds: nocturnal CPAP, 3L NC O2 during day & 4L at night, Ipatoprium, Levalbuterol, Anoro Gastrointestinal: (1) GERD; (2) hx of pancreatitis -- LFTs within normal limits -- diet: general -- bowel regimen: None -- ulcer prophylaxis: Pantoprazole Home meds: Omeprazole, Ondansetron ODT Endocrine: No acute issues -- monitor BGs -- Methyprednisolone Home meds: Prednisone Renal: (1) BPH -- UOP: voiding -- Cr 0.71 from 0.81 -- Lytes Na 145 from 141 K 4.1 Ca 8.3, replace Mag 1.9 Phos 4.1 -- Finasteride Home meds: Finasteride Infectious disease: (1) Sepsis, improving; (2) Community acquired pneumonia, right middle lobe primarily and some involvement in RLL and RUL -- Tmax 98.3 -- WBC 7.3 from 6.9 -- Micro 07/10 Legionella negative Strep pneumo negative MRSA negative blood No growth to date influenza A&B negative -- ABX Zosyn x 7 days Home meds: None Neurologic: (1) chronic anxiety; (2) Hx of panic disorder -- Lexapro -- gabapentin -- Hydrocodone/acetaminophen -- Ambien -- PT Home meds: Lexapro, Gabapentin, Hydrocodone/acetaminophen, Ambien Hematological: (1) anemia; (2) chronic anticoagulation -- Hgb 8.6 from 8.8 -- Plt 251 from 254 -- DVT prophylaxis: Apixaban Home meds: Apixaban Metabolic: No acute issues Home meds: None Other: No acute issues Home meds: None Deep vein thrombosis prophylaxis: Apixaban Dietary: Pantoprazole Condition: serious Prognosis: good Code status: DNR Disposition: transfer to floor Cumulative time spent in the care of this patient (excluding any procedure time) : at least 40 minutes. Patient care included clinical interview (with patient and/or family), bedside exam of the patient, review of labs, x-rays, and other ancillary data, coordination of (respiratory, nursing care, review of patient's records, discussion regarding patients management with involved consultants, primary physician, pharmacists, and other healthcare personnel (dietary, case management , physical/occupational therapy etc.) Critical Care Time: none
--- NOTE | 2019-07-13 14:39 | PN ---
Progress Note - Progress Note Date of Service: 07/13/19 SOAP: Subjective: feels much better than admission, though still w SOB and wheezing. home O2 4L, currently at that level. +BMs. Objective: [] Vital Signs Temp Pulse Resp BP Pulse Ox 97.0 F 98 19 150/85 100 07/13/19 10:45 07/13/19 13:16 07/13/19 14:13 07/13/19 10:45 07/13/19 13:16 lying in bed in nad perr eomi op moist diffuse rhonchi and wheezing s1 s2 nl soft nt +Bs no le edema A+O x 3, nonfocal neurological exam Laboratory Results - last 24 hr 07/13/19 07/13/19 05:00 05:00 WBC 7.3 RBC 2.93 L Hgb 8.6 L Hct 26 L MCV 87 MCH 30 MCHC 34 RDW 17 H Plt Count 251 MPV 6.6 L Sodium 145 Potassium 4.1 Chloride 103 Carbon Dioxide 37 H Anion Gap 5 BUN 21 Creatinine 0.71 Est GFR ( Amer) 130.2 Est GFR (Non-Af Amer) 107.6 BUN/Creatinine Ratio 29.6 H Glucose 134 H Calcium 8.3 L Phosphorus 4.1 Magnesium 1.9 Hydrocodone Bitart/Acetaminophen ([place] 5-325 Tab*) 1 tab PO Q4H PRN PRN Reason: PAIN - MODERATE Last Admin: 07/13/19 05:42 Dose: 1 tab Apixaban (Eliquis*) 5 mg PO BID [facility] Last Admin: 07/13/19 08:21 Dose: 5 mg Atorvastatin Calcium (Lipitor*) 10 mg PO [facility] Last Admin: 07/13/19 08:20 Dose: 10 mg Diltiazem HCl (Cardizem Cd Cap*) 240 mg PO [facility] Last Admin: 07/13/19 08:20 Dose: 240 mg Escitalopram Oxalate (Lexapro *) 20 mg PO [facility] Last Admin: 07/13/19 08:21 Dose: 20 mg Finasteride (Proscar Tab*) 5 mg PO [facility] Last Admin: 07/13/19 08:20 Dose: 5 mg Flecainide Acetate (Tambocor Tab*) 75 mg PO BID [facility] Last Admin: 07/13/19 08:20 Dose: 75 mg Gabapentin (Neurontin Cap(*)) 100 mg PO TID [facility] Last Admin: 07/13/19 14:13 Dose: 100 mg Hydralazine HCl (Apresoline Iv*) 10 mg IV SLOW PU Q6H PRN PRN Reason: SYSTOLIC BP GREATER THAN: Piperacillin Sod/Tazobactam (Sod 3.375 gm/ Sodium Chloride) 100 mls @ 25 mls/ hr IVPB Q8H [facility] Last Admin: 07/13/19 14:13 Dose: 25 mls/hr Ipratropium [place] (Atrovent 0.5 Mg Neb.Hina*) 0.5 mg INH RT.BID [facility] Last Admin: 07/13/19 07:20 Dose: 0.5 mg Levalbuterol HCl (Xopenex 1.25 Mg/0.5 Ml Neb.Hina*) 1.25 mg INH [id number] AWAKE [facility] Last Admin: 07/13/19 13:04 Dose: 1.25 mg Methylprednisolone Sodium Succinate (Solu-Medrol 125mg *) 60 mg IV DAILY [facility] Last Admin: 07/13/19 08:22 Dose: 60 mg Morphine Sulfate (Morphine Inj (Syringe))*) 2 mg IV Q2H PRN PRN Reason: PAIN - SEVERE Pantoprazole Sodium (Protonix Tab*) 40 mg PO QPM [facility] Last Admin: 07/12/19 17:22 Dose: 40 mg Pharmacy Consult (Zosyn Per Pharmacy*) 1 note FOLLOW UP .ZOSYN PER PHARMACY [facility] Sodium Chloride (Sodium Chloride(Inhalant) 3%*) 3 ml INH Q4H PRN PRN Reason: SHORTNESS OF BREATH Last Admin: 07/11/19 16:27 Dose: 3 ml Tiotropium [place]/Olodaterol (Stiolto Respimat Inh [place] (60 Puff)) 2 puff INH QAM PRN PRN Reason: SOB/WHEEZING Zolpidem Tartrate (Ambien Tab*) 5 mg PO BEDTIME PRN PRN Reason: SLEEP Last Admin: 07/11/19 23:07 Dose: 5 mg Assessment: 79 yo male with metastatic NSCLC s/p 3 cycles carboplatin/pemetrexed/ pembrolizumab (C3D1 06/23/19) who was hospitalized last month with a PNA and COPD exacerbation. He now returns with severe dyspnea and high oxygen needs with a dense R sided consolidation v compressive atelectasis improved on Vapotherm and broader antibiotics. Plan: 1. Hypoxemic respiratory failure, post obstructive PNA v compressive atelectasis - symptomatically improved - some improved aeration on repeat CXR today - plan CT chest to further evaluate for bronchial narrowing - cont current treatment with metanebs - cont Zosyn and solumedrol - further treatment guidance per pulmonology 2. NSCLC - interval improvement noted on CT after C2 - hold C4 scheduled for later this week 3. afib: stable, on eliquis, flecanide and cardizem -cont tele DNR
[2019-07-13] MEDS: Pantoprazole TAB * 40 MG TAB PO SCH (17:06)
--- NOTE | 2019-07-13 17:23 | PN ---
Progress Note - Progress Note Date of Service: 07/13/19 - Pulm f/u note Note: Pt seen and examined at bedside. Pt reports feeling better however not at baseline. FiO2 requirements improved. Still coughing lot of junk Active Medications Generic Name Dose Route Start Last Admin Trade Name Freq PRN Reason Stop Dose Admin Hydrocodone Bitart/Acetaminophen 1 tab 07/10/19 11:42 07/13/19 05:42 [place] 5-325 Tab* PO 1 tab Q4H PRN Administration PAIN - MODERATE Apixaban 5 mg 07/10/19 21:00 07/13/19 08:21 Eliquis* PO 5 mg BID [facility] Administration Atorvastatin Calcium 10 mg 07/11/19 09:00 07/13/19 08:20 Lipitor* PO 10 mg QAM [facility] Administration Diltiazem HCl 240 mg 07/11/19 09:00 07/13/19 08:20 Cardizem Cd Cap* PO 240 mg QAM [facility] Administration Escitalopram Oxalate 20 mg 07/11/19 09:00 07/13/19 08:21 Lexapro * PO 20 mg QAM [facility] Administration Finasteride 5 mg 07/11/19 09:00 07/13/19 08:20 Proscar Tab* PO 5 mg QAM [facility] Administration Flecainide Acetate 75 mg 07/10/19 21:00 07/13/19 08:20 Tambocor Tab* PO 75 mg BID [facility] Administration Gabapentin 100 mg 07/10/19 14:00 07/13/19 14:13 Neurontin Cap(*) PO 100 mg TID [facility] Administration Hydralazine HCl 10 mg 07/12/19 08:36 Apresoline Iv* IV SLOW PU Q6H PRN SYSTOLIC BP GREATER THAN: Piperacillin Sod/Tazobactam 100 mls @ 25 mls/hr 07/10/19 14:00 07/13/19 14:13 Sod 3.375 gm/ Sodium Chloride IVPB 25 mls/hr Q8H [facility] Administration Ipratropium [place] 0.5 mg 07/10/19 19:00 07/13/19 07:20 Atrovent 0.5 Mg Neb.Hina* INH 0.5 mg RT.BID [facility] Administration Levalbuterol HCl 1.25 mg 07/13/19 13:00 07/13/19 13:04 Xopenex 1.25 Mg/0.5 Ml Neb.Hina* INH 1.25 mg [id number] AWAKE [facility] Administration Methylprednisolone Sodium Succinate 60 mg 07/12/19 09:00 07/13/19 08:22 Solu-Medrol 125mg * IV 60 mg DAILY [facility] Administration Morphine Sulfate 2 mg 07/12/19 10:38 Morphine Inj (Syringe))* IV Q2H PRN PAIN - SEVERE Pantoprazole Sodium 40 mg 07/10/19 18:00 07/13/19 17:06 Protonix Tab* PO 40 mg QPM [facility] Administration Pharmacy Consult 1 note 07/10/19 12:00 Zosyn Per Pharmacy* FOLLOW UP .ZOSYN PER PHARMACY [facility] Sodium Chloride 3 ml 07/10/19 13:34 07/11/19 16:27 Sodium Chloride(Inhalant) 3%* INH 3 ml Q4H PRN Administration SHORTNESS OF BREATH Tiotropium [place]/Olodaterol 2 puff 07/10/19 11:42 Stiolto Respimat Inh [place] (60 Puff) INH QAM PRN SOB/WHEEZING Zolpidem Tartrate 5 mg 07/10/19 11:42 07/11/19 23:07 Ambien Tab* PO 5 mg BEDTIME PRN Administration SLEEP Vital Signs Temp Pulse Resp BP Pulse Ox 97.0 F 98 20 150/85 100 07/13/19 10:45 07/13/19 13:16 07/13/19 16:13 07/13/19 10:45 07/13/19 13:16 O/E: Pt in NAD, sitting up in chair HEENT: PERRLA, no JVD, no accessory muscle usage CVS: S1, S2+ Lungs: Diminished air entry, wheeze improved Abd: Obese, Soft, BS+ Ext: Normal ROM Skin: No rash Neuro: No focal deficits Laboratory Results - last 24 hr 07/13/19 07/13/19 05:00 05:00 WBC 7.3 RBC 2.93 L Hgb 8.6 L Hct 26 L MCV 87 MCH 30 MCHC 34 RDW 17 H Plt Count 251 MPV 6.6 L Sodium 145 Potassium 4.1 Chloride 103 Carbon Dioxide 37 H Anion Gap 5 BUN 21 Creatinine 0.71 Est GFR ( Amer) 130.2 Est GFR (Non-Af Amer) 107.6 BUN/Creatinine Ratio 29.6 H Glucose 134 H Calcium 8.3 L Phosphorus 4.1 Magnesium 1.9 I/R: 79 y o m with COPD, chronic hypoxic resp failure, metastatic and recurrnet lung cancer on chemo with recurrent post obstructive PNA`s on right. Pt with narrrowing of rt main stem bronchus from hilar density and superimposed fibrosis with post obstructive PNA He had recurrence in setting of immunocompromized state while on chemo Pt with atlectasis of RMl and air space opacities involving rt upper lobe and RLL. Also with concern for lymphangetic spread Pt had improvement with mucus clearance and FiO2 requirement at his home level at 4L c/w nebs, reports benefit with metanebs c/w abx Will need agressive pulm toilet as out pt as well to help mary lazo from rt side If hilar density doesnot shrink with chemo, will need stent on rt side Bronchoscopy would help however benefit might be short lived until secretions pool back again If continues to have recurrent PNAs will refer to [facility] for endobronchial stent
[2019-07-13] MEDS: Zolpidem TAB* 5 MG PO PRN (21:35)
[2019-07-13] MEDS: Morphine INJ* 2 MG/ML 1 ML SYRINGE (TWO MG - NEW SYRINGE VERSION) IV PRN (22:00)
[2019-07-14] MEDS: Levalbuterol 1.25MG/0.5ML NEB INH SCH ×4 (01:20→20:00)
[2019-07-14 06:56] LABS: Hematocrit 30 % (42-52); Mean Corpuscular HGB Conc 34 g/dL (31-36); Mean Corpuscular Hemoglobin 29 pg (27-31); Mean Corpuscular Volume 87 fL (80-94); Mean Platelet Volume 6.7 fL (7.4-10.4); Platelet Count 355 10^3/uL (150-450); Red Blood Count 3.41 10^6 /uL (4.18-5.48); Red Cell Distribution Width 18 % (10-15); White Blood Count 15.2 10^3/uL (3.5-10.8)
[2019-07-14 07:15] LABS: BUN/Creatinine Ratio 31.5 (8-20); EGFR African American 126.1 (>60); EGFR Non-African American 104.2 (>60); Phosphorus 4.1 mg/dL (2.5-5.0); Potassium 4.3 mmol/L (3.5-5.0)
[2019-07-14] MEDS: Ipratropium 0.5MG/2.5ML NEB* 0.5 MG/2.5 ML NEB.SOLN INH SCH ×2 (08:58→19:59)
--- NOTE | 2019-07-14 09:03 | PN ---
Progress Note - Progress Note Date of Service: 07/14/19 SOAP: Subjective: breathing much harder this am "i am panicking". O2 sats 97% however. felt relief with morphine over night. Objective: Vital Signs Temp Pulse Resp BP Pulse Ox 97.1 F 85 20 150/83 100 07/14/19 02:16 07/14/19 02:16 07/14/19 02:30 07/14/19 02:16 07/14/19 02:16 sitting up breathing at 28 bpm uncomfortable appearing dense wheezing rhonchi on right tachy soft nt +Bs no le edema A+O x 3 Laboratory Results - last 24 hr 07/14/19 07/14/19 06:25 06:25 WBC 15.2 H RBC 3.41 L Hgb 10.0 L Hct 30 L MCV 87 MCH 29 MCHC 34 RDW 18 H Plt Count 355 MPV 6.7 L Sodium 145 Potassium 4.3 Chloride 102 Carbon Dioxide 37 H Anion Gap 6 BUN 23 Creatinine 0.73 Est GFR ( Amer) 126.1 Est GFR (Non-Af Amer) 104.2 BUN/Creatinine Ratio 31.5 H Glucose 144 H Calcium 9.0 Phosphorus 4.1 Magnesium 2.0 Hydrocodone Bitart/Acetaminophen ([place] 5-325 Tab*) 1 tab PO Q4H PRN PRN Reason: PAIN - MODERATE Last Admin: 07/13/19 05:42 Dose: 1 tab Apixaban (Eliquis*) 5 mg PO BID [facility] Last Admin: 07/13/19 21:35 Dose: 5 mg Atorvastatin Calcium (Lipitor*) 10 mg PO [facility] Last Admin: 07/13/19 08:20 Dose: 10 mg Diltiazem HCl (Cardizem Cd Cap*) 240 mg PO [facility] Last Admin: 07/13/19 08:20 Dose: 240 mg [facility] ([facility] *) [facility] Last Admin: 07/13/19 08:21 Dose: 20 mg Finasteride (Proscar Tab*) [facility] Last Admin: 07/13/19 08:20 Dose: 5 mg Flecainide Acetate (Tambocor Tab*) 75 mg PO BID [facility] Last Admin: 07/13/19 21:35 Dose: 75 mg Gabapentin (Neurontin Cap(*)) 100 mg PO TID [facility] Last Admin: 07/13/19 21:35 Dose: 100 mg Hydralazine HCl (Apresoline Iv*) 10 mg IV SLOW PU Q6H PRN PRN Reason: SYSTOLIC BP GREATER THAN: Piperacillin Sod/Tazobactam (Sod 3.375 gm/ Sodium Chloride) 100 mls @ 25 mls/ hr IVPB Q8H [facility] Last Admin: 07/13/19 21:35 Dose: 25 mls/hr Ipratropium [place] (Atrovent 0.5 Mg Neb.Hina*) 0.5 mg INH RT.BID [facility] Last Admin: 07/13/19 20:09 Dose: 0.5 mg Levalbuterol HCl (Xopenex 1.25 Mg/0.5 Ml Neb.Hina*) 1.25 mg INH [id number] AWAKE [facility] Last Admin: 07/14/19 01:20 Dose: Not Given Methylprednisolone Sodium Succinate (Solu-Medrol 125mg *) 60 mg IV DAILY [facility] Last Admin: 07/13/19 08:22 Dose: 60 mg Morphine Sulfate (Morphine Inj (Syringe))*) 2 mg IV Q2H PRN PRN Reason: respiratory distress Pantoprazole Sodium (Protonix Tab*) 40 mg PO QPM [facility] Last Admin: 07/13/19 17:06 Dose: 40 mg Pharmacy Consult (Zosyn Per Pharmacy*) 1 note FOLLOW UP .ZOSYN PER PHARMACY [facility] Sodium Chloride (Sodium Chloride(Inhalant) 3%*) 3 ml INH Q4H PRN PRN Reason: SHORTNESS OF BREATH Last Admin: 07/11/19 16:27 Dose: 3 ml Tiotropium [place]/Olodaterol (Stiolto Respimat Inh [place] (60 Puff)) 2 puff INH QAM PRN PRN Reason: SOB/WHEEZING Zolpidem Tartrate (Ambien Tab*) 5 mg PO BEDTIME PRN PRN Reason: SLEEP Last Admin: 07/13/19 21:35 Dose: 5 mg Assessment: 79 yo male with metastatic NSCLC s/p 3 cycles carboplatin/pemetrexed/ pembrolizumab (C3D1 06/23/19) who was hospitalized last month with a PNA and COPD exacerbation. He now returns with severe dyspnea and high oxygen needs with a dense R sided consolidation v compressive atelectasis improved on Vapotherm and broader antibiotics. This am harder work of breathing Plan: 1. Hypoxemic respiratory failure, post obstructive PNA v compressive atelectasis - symptomatically improved - some improved aeration on repeat CXR today - plan CT chest to further evaluate for bronchial narrowing - cont current treatment with metanebs - cont Zosyn and solumedrol - further treatment guidance per pulmonology, added morphine for air hunger. may need to go back to ICU, ?transfer for stenting. Dr Medrano to see this am 2. NSCLC - interval improvement noted on CT after C2 - hold C4 scheduled for later this week 3. afib: stable, on eliquis, flecanide and cardizem -cont tele DNR
[2019-07-14] MEDS: Morphine INJ* 2 MG/ML 1 ML SYRINGE (TWO MG - NEW SYRINGE VERSION) IV PRN ×2 (09:18→15:26)
[2019-07-14] MEDS: Diltiazem CD CAP* 240 MG PO SCH (09:19)
[2019-07-14] MEDS: Apixaban* 5 MG TAB PO SCH ×2 (09:20→20:45)
[2019-07-14] MEDS: Flecainide TAB* 100 MG PO SCH ×2 (09:21→20:45)
[2019-07-14] MEDS: Atorvastatin* 10 MG TAB PO SCH (09:22)
[2019-07-14] MEDS: Gabapentin CAP(*) 100 MG PO SCH ×3 (09:23→20:39)
[2019-07-14] MEDS: Escitalopram * 20 MG TABLET PO SCH (09:25)
[2019-07-14] MEDS: methylPREDNISolone 125 MG* 2 ML VIAL IV SCH (09:25)
[2019-07-14] MEDS: Finasteride TAB* 5 MG PO SCH (09:26)
[2019-07-14] MEDS: Piperacillin/Tazobac ADVAN(*) 3.375 GM in NS 0.9% 100 ML* 100 ML IVPB SCH ×3 (09:29→21:45)
--- NOTE | 2019-07-14 15:52 | PN ---
Progress Note - Progress Note Date of Service: 07/14/19 - Pulm f/u note Note: Pt seen and examined at bedside. Patient reports having worsening shortness of breath today. No change in note FiO2 requirements. Patient reports having significant cough with thick phlegm, able to expectorate phlegm with the med and nebs. Patient also receiving when necessary morphine and that has been helpful Active Medications Generic Name Dose Route Start Last Admin Trade Name Freq PRN Reason Stop Dose Admin Hydrocodone Bitart/Acetaminophen 1 tab 07/10/19 11:42 07/13/19 05:42 [place] 5-325 Tab* PO 1 tab Q4H PRN Administration PAIN - MODERATE Apixaban 5 mg 07/10/19 21:00 07/14/19 09:20 Eliquis* PO 5 mg BID [facility] Administration Atorvastatin Calcium 10 mg 07/11/19 09:00 07/14/19 09:22 Lipitor* PO 10 mg QAM [facility] Administration Diltiazem HCl 240 mg 07/11/19 09:00 07/14/19 09:19 Cardizem Cd Cap* PO 240 mg QAM [facility] Administration Escitalopram Oxalate 20 mg 07/11/19 09:00 07/14/19 09:25 Lexapro * PO 20 mg QAM [facility] Administration Finasteride 5 mg 07/11/19 09:00 07/14/19 09:26 Proscar Tab* PO 5 mg QAM [facility] Administration Flecainide Acetate 75 mg 07/10/19 21:00 07/14/19 09:21 Tambocor Tab* PO 75 mg BID [facility] Administration Gabapentin 100 mg 07/10/19 14:00 07/14/19 14:35 Neurontin Cap(*) PO 100 mg TID [facility] Administration Hydralazine HCl 10 mg 07/12/19 08:36 Apresoline Iv* IV SLOW PU Q6H PRN SYSTOLIC BP GREATER THAN: Piperacillin Sod/Tazobactam 100 mls @ 25 mls/hr 07/10/19 14:00 07/14/19 14:40 Sod 3.375 gm/ Sodium Chloride IVPB 25 mls/hr Q8H [facility] Administration Ipratropium [place] 0.5 mg 07/10/19 19:00 07/14/19 08:58 Atrovent 0.5 Mg Neb.Hina* INH 0.5 mg RT.BID [facility] Administration Levalbuterol HCl 1.25 mg 07/13/19 13:00 07/14/19 12:15 Xopenex 1.25 Mg/0.5 Ml Neb.Hina* INH 1.25 mg [id number] AWAKE [facility] Administration Methylprednisolone Sodium Succinate 60 mg 07/12/19 09:00 07/14/19 09:25 Solu-Medrol 125mg * IV 60 mg DAILY [facility] Administration Morphine Sulfate 2 mg 07/14/19 08:57 07/14/19 15:26 Morphine Inj (Syringe))* IV 2 mg Q2H PRN Administration respiratory distress Pantoprazole Sodium 40 mg 07/10/19 18:00 07/13/19 17:06 Protonix Tab* PO 40 mg QPM [facility] Administration Pharmacy Consult 1 note 07/10/19 12:00 Zosyn Per Pharmacy* FOLLOW UP .ZOSYN PER PHARMACY [facility] Sodium Chloride 3 ml 07/10/19 13:34 07/11/19 16:27 Sodium Chloride(Inhalant) 3%* INH 3 ml Q4H PRN Administration SHORTNESS OF BREATH Tiotropium [place]/Olodaterol 2 puff 07/10/19 11:42 Stiolto Respimat Inh [place] (60 Puff) INH QAM PRN SOB/WHEEZING Zolpidem Tartrate 5 mg 07/10/19 11:42 07/13/19 21:35 Ambien Tab* PO 5 mg BEDTIME PRN Administration SLEEP Vital Signs Temp Pulse Resp BP Pulse Ox 97.4 F 76 24 115/81 98 07/14/19 10:21 07/14/19 10:21 07/14/19 15:26 07/14/19 10:21 07/14/19 10:21 O/E: Pt in NAD, sitting up in chair HEENT: PERRLA, no JVD, no accessory muscle usage CVS: S1, S2+ Lungs: Diminished air entry, end expiratory wheeze present Abd: Obese, Soft, BS+ Ext: Normal ROM Skin: No rash Neuro: No focal deficits Laboratory Results - last 24 hr 07/14/19 07/14/19 06:25 06:25 WBC 15.2 H RBC 3.41 L Hgb 10.0 L Hct 30 L MCV 87 MCH 29 MCHC 34 RDW 18 H Plt Count 355 MPV 6.7 L Sodium 145 Potassium 4.3 Chloride 102 Carbon Dioxide 37 H Anion Gap 6 BUN 23 Creatinine 0.73 Est GFR ( Amer) 126.1 Est GFR (Non-Af Amer) 104.2 BUN/Creatinine Ratio 31.5 H Glucose 144 H Calcium 9.0 Phosphorus 4.1 Magnesium 2.0 I/R: 79 y o m with COPD, chronic hypoxic resp failure, metastatic and recurrnet lung cancer on chemo with recurrent post obstructive PNA`s on right. Pt with narrrowing of rt main stem bronchus from hilar density and superimposed fibrosis with post obstructive PNA He had recurrence in setting of immunocompromized state while on chemo Pt with atlectasis of RMl and air space opacities involving rt upper lobe and RLL. Also with concern for lymphangetic spread Pt had improvement with mucus clearance and FiO2 requirement at his home level at 4L he however reports worsening of shortness of breath today Patient reports benefit from extra neb treatment and meta nebs c/w nebs c/w abx if symptoms do not improve, will need repeat imaging and possible bronchoscopy Bronchoscopy would help however benefit might be short lived until secretions pool back again Will need agressive pulm toilet as out pt as well to help drain secretions from rt side If hilar density doesnot shrink with chemo, will need stent on rt side If continues to have recurrent PNAs will refer to [facility] for endobronchial stent
[2019-07-14] MEDS: Pantoprazole TAB * 40 MG TAB PO SCH (18:26)
[2019-07-15] MEDS: Levalbuterol 1.25MG/0.5ML NEB INH SCH ×5 (02:10→19:37)
[2019-07-15 04:51] LABS: Hematocrit 29 % (42-52); Hemoglobin 9.6 g/dL (14.0-18.0); Mean Corpuscular HGB Conc 33 g/dL (31-36); Mean Corpuscular Hemoglobin 29 pg (27-31); Mean Corpuscular Volume 88 fL (80-94); Mean Platelet Volume 6.7 fL (7.4-10.4); Platelet Count 286 10^3/uL (150-450); Red Blood Count 3.28 10^6 /uL (4.18-5.48); Red Cell Distribution Width 17 % (10-15); White Blood Count 11.2 10^3/uL (3.5-10.8)
[2019-07-15 05:06] LABS: BUN/Creatinine Ratio 35.8 (8-20); Calcium 8.4 mg/dL (8.6-10.3); EGFR African American 139.2 (>60); Magnesium 1.8 mg/dL (1.9-2.7); Phosphorus 4.4 mg/dL (2.5-5.0); Potassium 4.2 mmol/L (3.5-5.0)
[2019-07-15] MEDS: Piperacillin/Tazobac ADVAN(*) 3.375 GM in NS 0.9% 100 ML* 100 ML IVPB SCH ×3 (05:34→21:31)
[2019-07-15] MEDS: Ipratropium 0.5MG/2.5ML NEB* 0.5 MG/2.5 ML NEB.SOLN INH SCH ×2 (07:21→19:38)
[2019-07-15] MEDS: methylPREDNISolone 125 MG* 2 ML VIAL IV SCH (09:37)
[2019-07-15] MEDS: Morphine INJ* 2 MG/ML 1 ML SYRINGE (TWO MG - NEW SYRINGE VERSION) IV PRN ×4 (09:37→21:53)
[2019-07-15] MEDS: Flecainide TAB* 100 MG PO SCH ×2 (09:40→21:44)
[2019-07-15] MEDS: Diltiazem CD CAP* 240 MG PO SCH (09:41)
[2019-07-15] MEDS: Atorvastatin* 10 MG TAB PO SCH (09:42)
[2019-07-15] MEDS: Apixaban* 5 MG TAB PO SCH ×2 (09:42→21:45)
[2019-07-15] MEDS: Escitalopram * 20 MG TABLET PO SCH (09:42)
[2019-07-15] MEDS: Gabapentin CAP(*) 100 MG PO SCH ×3 (09:42→21:31)
[2019-07-15] MEDS: Finasteride TAB* 5 MG PO SCH (09:42)
[2019-07-15] MEDS: Pantoprazole TAB * 40 MG TAB PO SCH (17:21)
--- NOTE | 2019-07-15 18:15 | PN ---
Progress Note - Progress Note Date of Service: 07/15/19 - Progress note Note: Pt seen and examined at bedside. Pt reports feeling better today. Has intermittent cough Active Medications Generic Name Dose Route Start Last Admin Trade Name Freq PRN Reason Stop Dose Admin Hydrocodone Bitart/Acetaminophen 1 tab 07/10/19 11:42 07/13/19 05:42 [place] 5-325 Tab* PO 1 tab Q4H PRN Administration PAIN - MODERATE Apixaban 5 mg 07/10/19 21:00 07/15/19 09:42 Eliquis* PO 5 mg BID [facility] Administration Atorvastatin Calcium 10 mg 07/11/19 09:00 07/15/19 09:42 Lipitor* PO 10 mg QAM [facility] Administration Diltiazem HCl 240 mg 07/11/19 09:00 07/15/19 09:41 Cardizem Cd Cap* PO 240 mg QAM [facility] Administration Escitalopram Oxalate 20 mg 07/11/19 09:00 07/15/19 09:42 Lexapro * PO 20 mg QAM [facility] Administration Finasteride 5 mg 07/11/19 09:00 07/15/19 09:42 Proscar Tab* PO 5 mg QAM [facility] Administration Flecainide Acetate 75 mg 07/10/19 21:00 07/15/19 09:40 Tambocor Tab* PO 75 mg BID [facility] Administration Gabapentin 100 mg 07/10/19 14:00 07/15/19 13:14 Neurontin Cap(*) PO 100 mg TID [facility] Administration Hydralazine HCl 10 mg 07/12/19 08:36 Apresoline Iv* IV SLOW PU Q6H PRN SYSTOLIC BP GREATER THAN: Piperacillin Sod/Tazobactam 100 mls @ 25 mls/hr 07/10/19 14:00 07/15/19 13:13 Sod 3.375 gm/ Sodium Chloride IVPB 25 mls/hr Q8H [facility] Administration Ipratropium [place] 0.5 mg 07/15/19 19:00 Atrovent 0.5 Mg Neb.Hina* INH [id number] AWAKE [facility] Levalbuterol HCl 1.25 mg 07/13/19 13:00 07/15/19 12:29 Xopenex 1.25 Mg/0.5 Ml Neb.Hian* INH 1.25 mg [id number] AWAKE [facility] Administration Methylprednisolone Sodium Succinate 60 mg 07/12/19 09:00 07/15/19 09:37 Solu-Medrol 125mg * IV 60 mg DAILY [facility] Administration Morphine Sulfate 2 mg 07/14/19 08:57 07/15/19 18:02 Morphine Inj (Syringe))* IV 2 mg Q2H PRN Administration respiratory distress Pantoprazole Sodium 40 mg 07/10/19 18:00 07/15/19 17:21 Protonix Tab* PO 40 mg QPM [facility] Administration Pharmacy Consult 1 note 07/10/19 12:00 Zosyn Per Pharmacy* FOLLOW UP .ZOSYN PER PHARMACY [facility] Sodium Chloride 3 ml 07/10/19 13:34 07/11/19 16:27 Sodium Chloride(Inhalant) 3%* INH 3 ml Q4H PRN Administration SHORTNESS OF BREATH Zolpidem Tartrate 5 mg 07/10/19 11:42 07/13/19 21:35 Ambien Tab* PO 5 mg BEDTIME PRN Administration SLEEP Vital Signs Temp Pulse Resp BP Pulse Ox 97.6 F 82 24 151/84 99 07/15/19 15:15 07/15/19 15:15 07/15/19 18:02 07/15/19 15:15 07/15/19 15:15 O/E: Pt in NAD, sitting up in chair HEENT: PERRLA, no JVD, no accessory muscle usage CVS: S1, S2+ Lungs: Diminished air entry, significant wheeze present Abd: Obese, Soft, BS+ Ext: Normal ROM Skin: No rash Neuro: No focal deficits Laboratory Results - last 24 hr 07/15/19 07/15/19 04:30 04:30 WBC 11.2 H RBC 3.28 L Hgb 9.6 L Hct 29 L MCV 88 MCH 29 MCHC 33 RDW 17 H Plt Count 286 MPV 6.7 L Sodium 142 Potassium 4.2 Chloride 100 L Carbon Dioxide 40 H Anion Gap 2 BUN 24 Creatinine 0.67 Est GFR ( Amer) 139.2 Est GFR (Non-Af Amer) 115.0 BUN/Creatinine Ratio 35.8 H Glucose 158 H Calcium 8.4 L Phosphorus 4.4 Magnesium 1.8 L I/R: 79 y o m with COPD, chronic hypoxic resp failure, metastatic and recurrnet lung cancer on chemo with recurrent post obstructive PNA`s on right. Pt with narrrowing of rt main stem bronchus from hilar density and superimposed fibrosis with post obstructive PNA Pt with atlectasis of RMl and air space opacities involving rt upper lobe and RLL. Also with concern for lymphangetic spread Pt with signficant wheeze still c/w nebs, increased frequency c/w steroids c/w abx if symptoms do not improve, will need repeat imaging and possible bronchoscopy Bronchoscopy would help however benefit might be short lived until secretions pool back again Will need agressive pulm toilet as out pt as well to help drain secretions from rt side If hilar density doesnot shrink with chemo, will need stent on rt side If continues to have recurrent PNAs will refer to [facility] for endobronchial stent
[2019-07-15] MEDS: Zolpidem TAB* 5 MG PO PRN (21:53)
[2019-07-16] MEDS: Ipratropium 0.5MG/2.5ML NEB* 0.5 MG/2.5 ML NEB.SOLN INH SCH ×7 (03:18→23:27)
[2019-07-16] MEDS: Levalbuterol 1.25MG/0.5ML NEB INH SCH ×4 (03:18→19:54)
[2019-07-16 06:40] LABS: Hematocrit 30 % (42-52); Mean Corpuscular HGB Conc 33 g/dL (31-36); Mean Corpuscular Hemoglobin 29 pg (27-31); Mean Corpuscular Volume 88 fL (80-94); Mean Platelet Volume 6.9 fL (7.4-10.4); Platelet Count 284 10^3/uL (150-450); Red Blood Count 3.42 10^6 /uL (4.18-5.48); Red Cell Distribution Width 17 % (10-15); White Blood Count 13.1 10^3/uL (3.5-10.8)
[2019-07-16] MEDS: Piperacillin/Tazobac ADVAN(*) 3.375 GM in NS 0.9% 100 ML* 100 ML IVPB SCH ×3 (06:58→22:11)
[2019-07-16 06:59] LABS: BUN/Creatinine Ratio 35.4 (8-20); Calcium 8.6 mg/dL (8.6-10.3); EGFR African American 144.1 (>60); EGFR Non-African American 119.1 (>60); Phosphorus 4.2 mg/dL (2.5-5.0); Potassium 4.5 mmol/L (3.5-5.0)
[2019-07-16] MEDS: Morphine INJ* 2 MG/ML 1 ML SYRINGE (TWO MG - NEW SYRINGE VERSION) IV PRN ×2 (08:24→14:54)
[2019-07-16] MEDS: Escitalopram * 20 MG TABLET PO SCH (08:25)
[2019-07-16] MEDS: Diltiazem CD CAP* 240 MG PO SCH (08:25)
[2019-07-16] MEDS: methylPREDNISolone 125 MG* 2 ML VIAL IV SCH (08:25)
[2019-07-16] MEDS: Flecainide TAB* 100 MG PO SCH ×2 (08:25→20:32)
[2019-07-16] MEDS: Finasteride TAB* 5 MG PO SCH (08:25)
[2019-07-16] MEDS: Gabapentin CAP(*) 100 MG PO SCH ×3 (08:25→20:24)
[2019-07-16] MEDS: Atorvastatin* 10 MG TAB PO SCH (08:26)
[2019-07-16] MEDS: Apixaban* 5 MG TAB PO SCH ×2 (08:26→20:24)
[2019-07-16] MEDS: acetaZOLAMIDE TAB* 250 MG PO SCH (08:32)
[2019-07-16] MEDS: Pantoprazole TAB * 40 MG TAB PO SCH (18:32)
--- NOTE | 2019-07-16 19:40 | PN ---
Progress Note - Progress Note Date of Service: 07/16/19 - Pulm f/u note Note: Pt seen and examined at bedside. Pt slightly tachypneic, sitting up in bed, family at bedside. Active Medications Generic Name Dose Route Start Last Admin Trade Name Freq PRN Reason Stop Dose Admin Hydrocodone Bitart/Acetaminophen 1 tab 07/10/19 11:42 07/13/19 05:42 Warren 5-325 Tab* PO 1 tab Q4H PRN Administration PAIN - MODERATE Acetazolamide 250 mg 07/16/19 09:00 07/16/19 08:32 Diamox Tab* PO 07/18/19 23:59 250 mg DAILY STORMY Administration Apixaban 5 mg 07/10/19 21:00 07/16/19 08:26 Eliquis* PO 5 mg BID STORMY Administration Atorvastatin Calcium 10 mg 07/11/19 09:00 07/16/19 08:26 Lipitor* PO 10 mg QAM STORMY Administration Diltiazem HCl 240 mg 07/11/19 09:00 07/16/19 08:25 Cardizem Cd Cap* PO 240 mg QAM STORMY Administration Escitalopram Oxalate 20 mg 07/11/19 09:00 07/16/19 08:25 Lexapro * PO 20 mg QAM STORMY Administration Finasteride 5 mg 07/11/19 09:00 07/16/19 08:25 Proscar Tab* PO 5 mg QAM STORMY Administration Flecainide Acetate 75 mg 07/10/19 21:00 07/16/19 08:25 Tambocor Tab* PO 75 mg BID STORMY Administration Gabapentin 100 mg 07/10/19 14:00 07/16/19 14:53 Neurontin Cap(*) PO 100 mg TID STORMY Administration Hydralazine HCl 10 mg 07/12/19 08:36 Apresoline Iv* IV SLOW PU Q6H PRN SYSTOLIC BP GREATER THAN: Piperacillin Sod/Tazobactam 100 mls @ 25 mls/hr 07/10/19 14:00 07/16/19 14:53 Sod 3.375 gm/ Sodium Chloride IVPB 25 mls/hr Q8H STORMY Administration Ipratropium [place] 0.5 mg 07/15/19 19:00 07/16/19 15:03 Atrovent 0.5 Mg Neb.Hina* INH 0.5 mg [id number] AWAKE [facility] Administration Levalbuterol HCl 1.25 mg 07/13/19 13:00 07/16/19 12:36 Xopenex 1.25 Mg/0.5 Ml Neb.Hina* INH Not Given [id number] AWAKE [facility] Methylprednisolone Sodium Succinate 40 mg 07/17/19 09:00 Solu-Medrol 40 Mg IV DAILY [facility] Morphine Sulfate 2 mg 07/14/19 08:57 07/16/19 14:54 Morphine Inj (Syringe))* IV 2 mg Q2H PRN Administration respiratory distress Pantoprazole Sodium 40 mg 07/10/19 18:00 07/16/19 18:32 Protonix Tab* PO 40 mg QPM STORMY Administration Pharmacy Consult 1 note 07/10/19 12:00 Zosyn Per Pharmacy* FOLLOW UP .ZOSYN PER PHARMACY [facility] Prochlorperazine 10 mg 07/15/19 20:21 07/16/19 08:28 Compazine Tab* PO 10 mg Q6H PRN Administration NAUSEA Sodium Chloride 3 ml 07/10/19 13:34 07/11/19 16:27 Sodium Chloride(Inhalant) 3%* INH 3 ml Q4H PRN Administration SHORTNESS OF BREATH Zolpidem Tartrate 5 mg 07/10/19 11:42 07/15/19 21:53 Ambien Tab* PO 5 mg BEDTIME PRN Administration SLEEP Vital Signs Temp Pulse Resp BP Pulse Ox 96.5 F 64 32 148/57 96 07/16/19 19:23 07/16/19 19:23 07/16/19 19:29 07/16/19 19:23 07/16/19 19:29 O/E: Pt in NAD, sitting up in chair HEENT: PERRLA, no JVD, no accessory muscle usage CVS: S1, S2+ Lungs: Diminished air entry, significant wheeze present Abd: Obese, Soft, BS+ Ext: Normal ROM Skin: No rash Neuro: No focal deficits Laboratory Results - last 24 hr 07/16/19 07/16/19 06:25 06:25 WBC 13.1 H RBC 3.42 L Hgb 10.0 L Hct 30 L MCV 88 MCH 29 MCHC 33 RDW 17 H Plt Count 284 MPV 6.9 L Sodium 144 Potassium 4.5 Chloride 99 L Carbon Dioxide 42 H* Anion Gap 3 BUN 23 Creatinine 0.65 L Est GFR ( Amer) 144.1 Est GFR (Non-Af Amer) 119.1 BUN/Creatinine Ratio 35.4 H Glucose 150 H Calcium 8.6 Phosphorus 4.2 Magnesium 2.0 I/R: 79 y o m with COPD, chronic hypoxic resp failure, metastatic and recurrnet lung cancer on chemo with recurrent post obstructive PNA`s on right. Pt with narrrowing of rt main stem bronchus from hilar density and superimposed fibrosis with post obstructive PNA Pt with atlectasis of RMl and air space opacities involving rt upper lobe and RLL. Also with concern for lymphangetic spread Pt with significant wheeze still Pt with worsening bicarb today Will order Acetazolomide c/w nebs, increased frequency c/w steroids c/w abx if symptoms do not improve, will need repeat imaging and possible bronchoscopy Bronchoscopy would help however benefit might be short lived until secretions pool back again Will need agressive pulm toilet as out pt as well to help drain secretions from rt side If hilar density doesnot shrink with chemo, will need stent on rt side If continues to have recurrent PNAs will refer to [facility] for endobronchial stent
[2019-07-16] MEDS: Zolpidem TAB* 5 MG PO PRN (20:32)
[2019-07-17 04:53] LABS: Hematocrit 29 % (42-52); Mean Corpuscular HGB Conc 35 g/dL (31-36); Mean Corpuscular Hemoglobin 31 pg (27-31); Mean Corpuscular Volume 89 fL (80-94); Mean Platelet Volume 7.3 fL (7.4-10.4); Platelet Count 287 10^3/uL (150-450); Red Blood Count 3.28 10^6 /uL (4.18-5.48); Red Cell Distribution Width 17 % (10-15)
[2019-07-17 05:00] LABS: BUN/Creatinine Ratio 33.8 (8-20); Calcium 8.6 mg/dL (8.6-10.3); EGFR African American 136.8 (>60); EGFR Non-African American 113.1 (>60); Magnesium 1.9 mg/dL (1.9-2.7); Phosphorus 3.9 mg/dL (2.5-5.0); Potassium 4.2 mmol/L (3.5-5.0)
[2019-07-17] MEDS: Piperacillin/Tazobac ADVAN(*) 3.375 GM in NS 0.9% 100 ML* 100 ML IVPB SCH (05:42)
[2019-07-17] MEDS: Levalbuterol 1.25MG/0.5ML NEB INH SCH ×3 (06:42→11:52)
[2019-07-17] MEDS: Ipratropium 0.5MG/2.5ML NEB* 0.5 MG/2.5 ML NEB.SOLN INH SCH ×4 (06:42→14:34)
[2019-07-17] MEDS: Atorvastatin* 10 MG TAB PO SCH (07:59)
[2019-07-17] MEDS: Finasteride TAB* 5 MG PO SCH (07:59)
[2019-07-17] MEDS: Gabapentin CAP(*) 100 MG PO SCH (07:59)
[2019-07-17] MEDS: acetaZOLAMIDE TAB* 250 MG PO SCH (07:59)
[2019-07-17] MEDS: Flecainide TAB* 100 MG PO SCH (07:59)
[2019-07-17] MEDS: Diltiazem CD CAP* 240 MG PO SCH (07:59)
[2019-07-17] MEDS: Apixaban* 5 MG TAB PO SCH (07:59)
[2019-07-17] MEDS: Escitalopram * 20 MG TABLET PO SCH (07:59)
[2019-07-17] MEDS ORDERED: methylPREDNISolone SOD 40 MG* 1 ML VIAL IV SCH (09:00)
[2019-07-17] MEDS ORDERED: methylPREDNISolone 125 MG* 2 ML VIAL IV SCH (11:00)
--- NOTE | 2019-07-17 14:43 | PN ---
Progress Note - Progress Note Date of Service: 07/17/19 - Pulm note Note: Pt seen and examined at bedside in ICU. Pt was transferred to ICU for AMS Pt with increased work of breathing. Pt was placed on BiPAP. ABG revealed metabolic acidosis. Rpt ABG after 1 hr didnot show any improvement Active Medications Generic Name Dose Route Start Last Admin Trade Name Freq PRN Reason Stop Dose Admin Acetazolamide 250 mg 07/16/19 09:00 07/17/19 07:59 Diamox Tab* PO 07/18/19 23:59 250 mg DAILY [facility] Administration Apixaban 5 mg 07/10/19 21:00 07/17/19 07:59 Eliquis* PO 5 mg BID ST[facility] Administration Atorvastatin Calcium 10 mg 07/11/19 09:00 07/17/19 07:59 Lipitor* PO 10 mg QAM [facility] Administration Diltiazem HCl 240 mg 07/11/19 09:00 07/17/19 07:59 Cardizem Cd Cap* PO 240 mg QAM [facility] Administration Escitalopram Oxalate 20 mg 07/11/19 09:00 07/17/19 07:59 Lexapro * PO 20 mg QAM [facility] Administration Finasteride 5 mg 07/11/19 09:00 07/17/19 07:59 Proscar Tab* PO 5 mg QAM [facility] Administration Flecainide Acetate 75 mg 07/10/19 21:00 07/17/19 07:59 Tambocor Tab* PO 75 mg BID [facility] Administration Gabapentin 100 mg 07/10/19 14:00 07/17/19 07:59 Neurontin Cap(*) PO 100 mg TID [facility] Administration Hydralazine HCl 10 mg 07/12/19 08:36 Apresoline Iv* IV SLOW PU Q6H PRN SYSTOLIC BP GREATER THAN: Piperacillin Sod/Tazobactam 100 mls @ 25 mls/hr 07/10/19 14:00 07/17/19 05:42 Sod 3.375 gm/ Sodium Chloride IVPB 25 mls/hr Q8H [facility] Administration Morphine Sulfate 30 mls @ 5 mls/hr 07/17/19 15:00 Morphine Manager News Adult* 5 Mg/Ml [employer] .change Q24H [facility]ORMY Protocol Ipratropium [place] 0.5 mg 07/15/19 19:00 07/17/19 14:34 Atrovent 0.5 Mg Neb.Hina* INH 0.5 mg [id number] AWAKE [facility] Administration Levalbuterol HCl 1.25 mg 07/13/19 13:00 07/17/19 11:52 Xopenex 1.25 Mg/0.5 Ml Neb.Hina* INH 1.25 mg [id number] AWAKE [facility] Administration Methylprednisolone Sodium Succinate 125 mg 07/17/19 11:00 07/17/19 11:06 Solu-Medrol 125mg * IV 125 mg DAILY [facility] Administration Morphine Sulfate 2 mg 07/14/19 08:57 07/16/19 14:54 Morphine Inj (Syringe))* IV 2 mg Q2H PRN Administration respiratory distress Pantoprazole Sodium 40 mg 07/10/19 18:00 07/16/19 18:32 Protonix Tab* PO 40 mg QPM [facility] Administration Pharmacy Consult 1 note 07/10/19 12:00 Zosyn Per Pharmacy* FOLLOW UP .ZOSYN PER PHARMACY [facility] Prochlorperazine 10 mg 07/15/19 20:21 07/16/19 08:28 Compazine Tab* PO 10 mg Q6H PRN Administration NAUSEA Sodium Chloride 3 ml 07/10/19 13:34 07/11/19 16:27 Sodium Chloride(Inhalant) 3%* INH 3 ml Q4H PRN Administration SHORTNESS OF BREATH Vital Signs Temp Pulse Resp BP Pulse Ox 97.2 F 75 32 155/85 100 07/17/19 11:15 07/17/19 12:00 07/17/19 12:00 07/17/19 12:00 07/17/19 12:00 O/E: Pt in drowsy, opens eyes to verbal stimuli HEENT: PERRLA, no JVD, accessory muscle usage CVS: S1, S2+ Lungs: Diminished air entry, significant wheeze present Abd: Obese, Soft, BS+ Ext: Normal ROM Skin: No rash Neuro: No focal deficits Laboratory Results - last 24 hr 07/17/19 07/17/19 07/17/19 04:30 04:30 11:00 WBC 13.0 H RBC 3.28 L Hgb 10.0 L Hct 29 L MCV 89 MCH 31 MCHC 35 RDW 17 H Plt Count 287 MPV 7.3 L Patient Temperature ABG pH 7.33 L ABG pH (Temp Correct) ABG pCO2 72 H* ABG pCO2 (Temp Corrct ABG pO2 84 ABG pO2 (Temp Correct ABG HCO3 32.0 H ABG O2 Saturation 97.1 ABG Base Excess 9.1 H Respiration Rate O2 Delivery Device Ventilator Type Vent Mode FiO2 Inspiratory Time PEEP Pressure Support Pressure Control EPAP IPAP BiPAP Sodium 143 Potassium 4.2 Chloride 99 L Carbon Dioxide 41 H* Anion Gap 3 BUN 23 Creatinine 0.68 Est GFR ( Amer) 136.8 Est GFR (Non-Af Amer) 113.1 BUN/Creatinine Ratio 33.8 H Glucose 148 H Calcium 8.6 Phosphorus 3.9 Magnesium 1.9 07/17/19 13:12 WBC RBC Hgb Hct MCV MCH MCHC RDW Plt Count MPV Patient Temperature Not Reportable ABG pH 7.35 ABG pH (Temp Correct) Not Reportable ABG pCO2 69 H ABG pCO2 (Temp Corrct Not Reportable ABG pO2 107 H ABG pO2 (Temp Correct Not Reportable ABG HCO3 32.5 H ABG O2 Saturation 98.8 H ABG Base Excess 9.7 H Respiration Rate 16 O2 Delivery Device Bipap Ventilator Type Not Reportable Vent Mode St FiO2 40 Inspiratory Time Not Reportable PEEP Not Reportable Pressure Support Not Reportable Pressure Control Not Reportable EPAP 5 IPAP 14 BiPAP Not Reportable Sodium Potassium Chloride Carbon Dioxide Anion Gap BUN Creatinine Est GFR ( Amer) Est GFR (Non-Af Amer) BUN/Creatinine Ratio Glucose Calcium Phosphorus Magnesium I/R: 79 y o m with COPD, chronic hypoxic resp failure, metastatic and recurrnet lung cancer on chemo with recurrent post obstructive PNA`s on right. Pt with worsening status recently with recurrent hospitalizations Pt with no significant improvement in his condition since admission Pt deteriorated this am, was transferred to ICU and placed on BiPAP Pt with no change in hypercapnic resp failure post BiPAP Had extensive discussion with family at bedside. Family decided on comfort measures Pt is DNR/DNI prior to this Pt will be started on Morphine as per family wishes Family would like BiPAP also discontinued
[2019-07-17] MEDS ORDERED: Morphine INJ* 4 MG/ML 1 ML SYRINGE (NEW SYRINGE VERSION) IV PRN (14:45)
[2019-07-17] MEDS ORDERED: Morphine PCA ADULT* 5 MG/ML 30 ML PCA SCH ×3 (14:45→16:18)
[2019-07-17] MEDS ORDERED: Morphine INJ* 4 MG/ML 1 ML SYRINGE (NEW SYRINGE VERSION) ONE (14:47)
[2019-07-17] MEDS ORDERED: Atropine 1% (ORAL/SL)* 15 ML BTL SL PRN (16:15)
[2019-07-17] MEDS ORDERED: Lorazepam PYXIS KEY PRN (16:17)
[2019-07-17] MEDS ORDERED: LORazepam INJ* 2 MG/ML 1 ML VIAL IV PUSH PRN (16:17)
[2019-07-17] MEDS: Morphine INJ* 2 MG/ML 1 ML SYRINGE (TWO MG - NEW SYRINGE VERSION) IV PRN (16:18)
[2019-07-17 17:23] VITALS: BP 103/55
--- NOTE | 2019-07-17 19:51 | DS ---
DISCHARGE/ SUMMARY: DATE OF ADMISSION: 07/10/19 DATE OF : 07/17/19 TIME OF : 5:55 p.m. REASON FOR HOSPITAL ADMISSION: Shortness of breath. REASON FOR : The patient was made comfort care by family. BRIEF SUMMARY OF HOSPITAL VISIT: The patient was a 79-year-old male with history of severe COPD, metastatic lung cancer with recurrence. The patient admitted for evaluation of shortness of breath. The patient was being treated for postobstructive pneumonia. The patient with endobronchial narrowing on the right side resulting in postobstructive pneumonia. The patient was requiring high-flow on admission. He subsequently improved and was sent to regular medical floor. The patient continued to have tenuous respiratory status requiring MetaNeb nebulizers [id number], IV steroids and antibiotics. The patient was found to be drowsy this morning and was brought into the ICU, found to have acute on chronic hypercapnic respiratory failure. The patient was initiated on BiPAP. Repeat blood gas after BiPAP did not show any improvement. The patient subsequently was found to be tachypneic and struggling. The patient's family requested comfort measures. They have requested BiPAP to be removed. The patient was initiated on morphine drip. The patient was comfortable throughout the time. He was pronounced on 07/17/19 at 5:55 p.m. His family was at bedside at that time. Family did not request any autopsy. [id number]/[facility] #: [id number] MTDD
== END 2019-07-17 17:55 | disposition expired | DRG 871 ==
LOC: ED 09:32 → ICU 11:24 → MED 07-13 10:09 → ICU 07-17 10:45
PROVIDERS: ADMIT Internal Medicine; ATTEND Internal Medicine
PROC: 5A09357 Assistance with Respiratory Ventilation, Less than 24 Consecutive Hours, Continuous Positive Airway Pressure (ICD-10-PCS; principal; 2019-07-12)
DX: A41.9 Sepsis, unspecified organism (principal); J96.21 Acute and chronic respiratory failure with hypoxia; J18.9 Pneumonia, unspecified organism; J96.22 Acute and chronic respiratory failure with hypercapnia; C34.91 Malignant neoplasm of unspecified part of right bronchus or lung; J44.0 Chronic obstructive pulmonary disease with (acute) lower respiratory infection; J98.19 Other pulmonary collapse; J44.1 Chronic obstructive pulmonary disease with (acute) exacerbation; G47.33 Obstructive sleep apnea (adult) (pediatric); I10 Essential (primary) hypertension; E78.5 Hyperlipidemia, unspecified; E66.9 Obesity, unspecified; Z96.642 Presence of left artificial hip joint; R94.31 Abnormal electrocardiogram [ECG] [EKG]; Z66 Do not resuscitate; I25.10 Atherosclerotic heart disease of native coronary artery without angina pectoris; N40.0 Benign prostatic hyperplasia without lower urinary tract symptoms; E78.00 Pure hypercholesterolemia, unspecified; K21.9 Gastro-esophageal reflux disease without esophagitis; M19.90 Unspecified osteoarthritis, unspecified site; F41.0 Panic disorder [episodic paroxysmal anxiety]; I48.0 Paroxysmal atrial fibrillation; I07.9 Rheumatic tricuspid valve disease, unspecified; D64.9 Anemia, unspecified; Z68.30 Body mass index [BMI] 30.0-30.9, adult; Z87.891 Personal history of nicotine dependence; Z92.21 Personal history of antineoplastic chemotherapy; Z92.3 Personal history of irradiation
CPT/HCPCS: 36415; 36600; 71045; 71260; 80048; 80053; 81003; 82803; 83605; 83735; 83880; 84100; 84484; 85025; 85027; 85384; 85610; 85652; 85730; 86140; 87040; 87641; 87899; 90732; 93005; 94640; 94660; 94667; 94668; 96365; 96375; 99232; 99233; 99285; A9270-GY; G8978-GP-CK; G8979-GP-CI; J2060; J2270; J2543; J2920; J2930; J3480; J3535; J7512; Q0164; Q9967